=== PATIENT | male | born 1965 | race American Indian/Alaskan Native ===

== ENCOUNTER 2016-03-22 20:29 | Emergency (ER) | payer OTHER ==
[2016-03-22 21:42] VITALS: BP 128/74
== END 2016-03-23 03:15 | disposition left against medical advice (07) ==
LOC: ED 20:29
DX: M54.9 Dorsalgia, unspecified (principal); Z53.21 Procedure and treatment not carried out due to patient leaving prior to being seen by health care provider

== ENCOUNTER 2017-07-07 07:52 | Inpatient (IN) | payer SELFPAY ==
[2017-07-07] MEDS ORDERED: ASPIRIN PO ONE (07:59)
[2017-07-07 08:31] LABS: Mean Corpuscular HGB Conc 31 % (32-34); Mean Corpuscular Hemoglobin 27 pg (28-32); Mean Corpuscular Volume 89 fl (84-94); Platelet Count 253 K/mm3 (140-440); Red Blood Count 4.91 M/mm3 (3.65-5.03); Red Cell Distribution Width 16.3 % (13.2-15.2)
[2017-07-07 08:34] LABS: Hematocrit 43.6 % (35.5-45.6); Hemoglobin 13.4 gm/dl (11.8-15.2)
[2017-07-07 08:53] LABS: BUN/Creatinine Ratio 11; Blood Urea Nitrogen 11 mg/dL (9-20); Calcium 8.6 mg/dL (8.4-10.2); Hemolysis Index 10
[2017-07-07 09:17] LABS: Basophils % (Manual) 0 % (0.0-1.8); Eosinophils % (Manual) 0 % (0.0-4.3); RBC Morphology Normal; Total Cells Counted 100
--- NOTE | 2017-07-07 09:30 | XRay Report ---
Single view chest: History: Shortness of breath, chest pain. Findings: Cardiomegaly. Trachea is midline. No consolidation, pneumothorax or pleural effusion. Impression: Cardiomegaly. No acute lung changes.
[2017-07-07] MEDS ORDERED: LASIX IV ONE (10:01)
--- NOTE | 2017-07-07 10:02 | Emergency Department Report ---
ED General Adult HPI - General Chief complaint: Dyspnea/Respdistress Stated complaint: C/P Time Seen by Provider: 07/07/17 09:43 Source: patient, RN notes reviewed, old records reviewed Mode of arrival: Ambulatory Limitations: No Limitations - History of Present Illness Initial comments: This is a 51-year-old male. The patient is previously unknown to this provider. Has a past medical history of hypertension. 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 Past medical history includes obstructive sleep apnea, poor compliance with CPAP, obesity, hypertension. Patient presents to the ER with a complaint of lower extremity swelling, shortness of breath, cough, recent viral syndrome. Contrary to what is documented in triage nurse documentation, he has no complaint of chest pain. The patient denies chest pain. The patient endorses unintentional 40 pound weight gain in the past year, and endorses new-onset 2 pillow orthopnea in the past month. The patient can't recall if he's had any dietary indiscretions. There is leg swelling but no leg pain. No recent travel, no recent surgeries, no DVT or pulmonary embolus risk factors. -: Gradual Location: left, right, lower extremity Severity scale (0 -10): 0 Consistency: constant Improves with: rest Worsens with: movement Associated Symptoms: cough, malaise, shortness of breath. denies: confusion, chest pain, diaphoresis, fever/chills, headaches, loss of appetite, nausea/ vomiting, rash, seizure, syncope, weakness - Related Data Home Medications Medication Instructions Recorded Confirmed Last Taken Lisinopril [Zestril] 5 mg PO QDAY 07/07/17 07/07/17 Unknown Metoprolol Tartrate 100 mg PO BID 07/07/17 07/07/17 Unknown Allergies Allergy/AdvReac Type Severity Reaction Status Date / Time No Known Allergies Allergy Verified 09/21/14 23:27 ED Review of Systems ROS: Stated complaint: C/P Other details as noted in HPI Comment: All other systems reviewed and negative ED Past Medical Hx - Past Medical History Hx Hypertension: Yes Additional medical history: A fib - Social History Smoking Status: Never Smoker Substance Use Type: None - Medications Home Medications: Home Medications Medication Instructions Recorded Confirmed Last Taken Type Lisinopril [Zestril] 5 mg PO QDAY 07/07/17 07/07/17 Unknown History Metoprolol Tartrate 100 mg PO BID 07/07/17 07/07/17 Unknown History ED Physical Exam - General Limitations: No Limitations General appearance: alert, in no apparent distress - Head Head exam: Present: atraumatic, normocephalic - Eye Eye exam: Present: normal appearance, EOMI - ENT ENT exam: Present: normal exam, normal orophraynx, mucous membranes moist, normal external ear exam - Neck Neck exam: Present: normal inspection, full ROM, other (4 cm of JVD when supine) . Absent: tenderness, meningismus, lymphadenopathy, thyromegaly - Respiratory Respiratory exam: Present: rales. Absent: respiratory distress - Cardiovascular Cardiovascular Exam: Present: regular rate, normal rhythm. Absent: bradycardia , tachycardia, irregular rhythm, systolic murmur, diastolic murmur, rubs, gallop - GI/Abdominal GI/Abdominal exam: Present: soft, normal bowel sounds. Absent: distended, tenderness, guarding, rebound, rigid, pulsatile mass - Rectal Rectal exam: Present: deferred - Extremities Exam Extremities exam: Present: normal inspection, full ROM, normal capillary refill , pedal edema, other (3+ pitting edema in the bilateral lower extremities). Absent: tenderness, calf tenderness - Back Exam Back exam: Present: normal inspection, full ROM. Absent: tenderness, CVA tenderness (R), paraspinal tenderness, vertebral tenderness - Neurological Exam Neurological exam: Present: alert, oriented X3, CN II-XII intact, normal gait, other (Extraocular movements intact. Tongue midline. No facial droop. Facial sensation intact to light touch in the V1, V2, V3 distribution bilaterally. 5 and 5 strength in 4 extremities.. Sensation is intact to light touch in 4 extremities.). Absent: motor sensory deficit - Psychiatric Psychiatric exam: Present: normal affect, normal mood - Skin Skin exam: Present: warm, dry, intact, normal color. Absent: rash ED Course Vital Signs 07/07/17 07/07/17 07/07/17 07:54 08:55 08:58 Temperature 98.8 F 98.9 F Pulse Rate 125 H 95 H 105 H Respiratory 24 16 20 Rate Blood Pressure 152/91 Blood Pressure 145/61 [Left] O2 Sat by Pulse 94 92 90 Oximetry 07/07/17 07/07/17 07/07/17 09:08 09:16 09:30 Temperature Pulse Rate 96 H 86 Respiratory 16 14 19 Rate Blood Pressure 121/67 121/67 Blood Pressure [Left] O2 Sat by Pulse 96 96 96 Oximetry 07/07/17 07/07/17 07/07/17 09:46 10:00 12:08 Temperature Pulse Rate 89 Respiratory 17 27 H Rate Blood Pressure 134/84 134/84 134/84 Blood Pressure [Left] O2 Sat by Pulse 95 94 90 Oximetry 07/07/17 07/07/17 07/07/17 12:16 12:30 12:46 Temperature Pulse Rate 77 Respiratory 15 18 17 Rate Blood Pressure 143/77 143/77 132/74 Blood Pressure [Left] O2 Sat by Pulse 90 92 94 Oximetry 07/07/17 13:00 Temperature Pulse Rate Respiratory 14 Rate Blood Pressure 132/74 Blood Pressure [Left] O2 Sat by Pulse 95 Oximetry ED Medical Decision Making - Lab Data Result diagrams: 07/07/17 08:20 07/07/17 08:20 Vital Signs 07/07/17 07/07/17 07/07/17 07:54 08:55 08:58 Temperature 98.8 F 98.9 F Pulse Rate 125 H 95 H 105 H Respiratory 24 16 20 Rate Blood Pressure 152/91 Blood Pressure 145/61 [Left] O2 Sat by Pulse 94 92 90 Oximetry 07/07/17 07/07/17 07/07/17 09:08 09:16 09:30 Temperature Pulse Rate 96 H 86 Respiratory 16 14 19 Rate Blood Pressure 121/67 121/67 Blood Pressure [Left] O2 Sat by Pulse 96 96 96 Oximetry Lab Results 07/07/17 07/07/17 07/07/17 Range/Units 08:20 08:20 08:20 WBC 8.1 (4.5-11.0) K/mm3 RBC 4.91 (3.65-5.03) M/mm3 Hgb 13.4 (11.8-15.2) gm/dl Hct 43.6 (35.5-45.6) % MCV 89 (84-94) fl MCH 27 L (28-32) pg MCHC 31 L (32-34) % RDW 16.3 H (13.2-15.2) % Plt Count 253 (140-440) K/mm3 Baso % (Auto) First Officer And Flight Instructor Add Manual Diff Complete Total Counted 100 Seg Neuts % (Manual) 84.0 H (40.0-70.0) % Band Neutrophils % 0 % Lymphocytes % (Manual) 11.0 L (13.4-35.0) % Reactive Lymphs % (Man) 0 % Monocytes % (Manual) 5.0 (0.0-7.3) % Eosinophils % (Manual) 0 (0.0-4.3) % Basophils % (Manual) 0 (0.0-1.8) % Metamyelocytes % 0 % Myelocytes % 0 % Promyelocytes % 0 % Blast Cells % 0 % Nucleated RBC % Not Reportable Seg Neutrophils # Man 6.8 (1.8-7.7) K/mm3 Band Neutrophils # 0.0 K/mm3 Lymphocytes # (Manual) 0.9 L (1.2-5.4) K/mm3 Abs React Lymphs (Man) 0.0 K/mm3 Monocytes # (Manual) 0.4 (0.0-0.8) K/mm3 Eosinophils # (Manual) 0.0 (0.0-0.4) K/mm3 Basophils # (Manual) 0.0 (0.0-0.1) K/mm3 Metamyelocytes # 0.0 K/mm3 Myelocytes # 0.0 K/mm3 Promyelocytes # 0.0 K/mm3 Blast Cells # 0.0 K/mm3 WBC Morphology Not Reportable Hypersegmented Neuts Not Reportable Hyposegmented Neuts Not Reportable Hypogranular Neuts Not Reportable Smudge Cells Not Reportable Toxic Granulation Not Reportable Toxic Vacuolation Not Reportable Dohle Bodies Not Reportable Pelger-Huet Anomaly Not Reportable Tacho Rods Not Reportable Platelet Estimate Not Reportable Clumped Platelets Not Reportable Plt Clumps, EDTA Not Reportable Large Platelets Not Reportable Giant Platelets Not Reportable Platelet Satelliting Not Reportable Plt Morphology Comment Not Reportable RBC Morphology Normal Dimorphic RBCs Not Reportable Polychromasia Not Reportable Hypochromasia Not Reportable Poikilocytosis Not Reportable Anisocytosis Not Reportable Microcytosis Not Reportable Macrocytosis Not Reportable Spherocytes Not Reportable Pappenheimer Bodies Not Reportable Sickle Cells Not Reportable Target Cells Not Reportable Tear Drop Cells Not Reportable Ovalocytes Not Reportable Helmet Cells Not Reportable Merino-[place] Bodies Not Reportable [place] Rings Not Reportable [place] Cells Not Reportable Bite Cells Not Reportable Crenated Cell Not Reportable Elliptocytes Not Reportable Acanthocytes (Spur) Not Reportable Rouleaux Not Reportable Hemoglobin C Crystals Not Reportable Schistocytes Not Reportable Malaria parasites Not Reportable [place] Bodies Not Reportable Hem Pathologist Commnt No Sodium 138 (137-145) mmol/L Potassium 4.0 (3.6-5.0) mmol/L Chloride 98.6 (98-107) mmol/L Carbon Dioxide 29 (22-30) mmol/L Anion Gap 14 mmol/L BUN 11 (9-20) mg/dL Creatinine 1.0 (0.8-1.5) mg/dL Estimated GFR > 60 ml/min BUN/Creatinine Ratio 11 % Glucose 145 H (75-100) mg/dL Calcium 8.6 (8.4-10.2) mg/dL Total Creatine Kinase (55-170) units/L Troponin T < 0.010 (0.00-0.029) ng/mL NT-Pro-B Natriuret Pep 54.65 (0-900) pg/mL 07/07/17 Range/Units 08:20 WBC (4.5-11.0) K/mm3 RBC (3.65-5.03) M/mm3 Hgb (11.8-15.2) gm/dl Hct (35.5-45.6) % MCV (84-94) fl MCH (28-32) pg MCHC (32-34) % RDW (13.2-15.2) % Plt Count (140-440) K/mm3 Baso % (Auto) Add Manual Diff Total Counted Seg Neuts % (Manual) (40.0-70.0) % Band Neutrophils % % Lymphocytes % (Manual) (13.4-35.0) % Reactive Lymphs % (Man) % Monocytes % (Manual) (0.0-7.3) % Eosinophils % (Manual) (0.0-4.3) % Basophils % (Manual) (0.0-1.8) % Metamyelocytes % % Myelocytes % % Promyelocytes % % Blast Cells % % Nucleated RBC % Seg Neutrophils # Man (1.8-7.7) K/mm3 Band Neutrophils # K/mm3 Lymphocytes # (Manual) (1.2-5.4) K/mm3 Abs React Lymphs (Man) K/mm3 Monocytes # (Manual) (0.0-0.8) K/mm3 Eosinophils # (Manual) (0.0-0.4) K/mm3 Basophils # (Manual) (0.0-0.1) K/mm3 Metamyelocytes # K/mm3 Myelocytes # K/mm3 Promyelocytes # K/mm3 Blast Cells # K/mm3 WBC Morphology Hypersegmented Neuts Hyposegmented Neuts Hypogranular Neuts Smudge Cells Toxic Granulation Toxic Vacuolation Dohle Bodies Pelger-Huet Anomaly Tacho Rods Platelet Estimate Clumped Platelets Plt Clumps, EDTA Large Platelets Giant Platelets Platelet Satelliting Plt Morphology Comment RBC Morphology Dimorphic RBCs Polychromasia Hypochromasia Poikilocytosis Anisocytosis Microcytosis Macrocytosis Spherocytes Pappenheimer Bodies Sickle Cells Target Cells Tear Drop Cells Ovalocytes Helmet Cells Merino-[place] Bodies [place] Rings [place] Cells Bite Cells Crenated Cell Elliptocytes Acanthocytes (Spur) Rouleaux Hemoglobin C Crystals Schistocytes Malaria parasites [place]o Bodies Hem Pathologist Commnt Sodium (137-145) mmol/L Potassium (3.6-5.0) mmol/L Chloride (98-107) mmol/L Carbon Dioxide (22-30) mmol/L Anion Gap mmol/L BUN (9-20) mg/dL Creatinine (0.8-1.5) mg/dL Estimated GFR ml/min BUN/Creatinine Ratio % Glucose (75-100) mg/dL Calcium (8.4-10.2) mg/dL Total Creatine Kinase 276 H (55-170) units/L Troponin T (0.00-0.029) ng/mL NT-Pro-B Natriuret Pep (0-900) pg/mL - EKG Data -: EKG Interpreted by Me Rate: tachycardia - EKG Data When compared to previous EKG there are: changes noted 07/07/17 10:36 Sinus tachycardia, 106 bpm, left axis deviation, left anterior fascicular block , abnormal EKG, not consistent with a STEMI, nonspecific changes when compared to prior EKG. - Radiology Data Radiology results: report reviewed, image reviewed X-ray of the chest demonstrates cardiomegaly. Otherwise no acute disease. Interpreted by radiology. LIVE [facility] DIANE WISDOM Male : 1965 [facility]# [id number] 07/07/17 11:14 - Radiology Dept. Note by DMITRY CROSSINDER [facility] Num: [id number] : 1965 Patient Age: 51 BLE VENOUS DUPLEX COMPLETED. VAS LAB PRELIMINARY REPORT; NO EVIDENCE OF DVT/SVT NOTED IN VESSELS/SEGMENTS EXAMINED, BLE. PHYSICIANS REPORT TO FOLLOW...(RSK) Initialized on 07/07/17 11:14 - END OF NOTE - Medical Decision Making Differential diagnosis, including the not limited to: Right-sided heart failure , pulmonary hypertension, obstructive sleep apnea, obesity hypoventilation syndrome, DVT, volume overload Assessment and plan: 51-year-old male who is obese, with lower extremity edema, noncompliant with CPAP, most likely has undiagnosed right-sided heart failure and probable pulmonary hypertension. He has no pulmonary embolus or DVT risk factors and he is low risk by well's criteria. A DVT study is pending at this time. He has no chest pain. He is given Lasix. The Hospital physician, Dr. Wheat is to admit the patient. Patient refused an arterial blood gas. Critical care attestation.: If time is entered above; I have spent that time in minutes in the direct care of this critically ill patient, excluding procedure time. ED Disposition Clinical Impression: Dependent edema Right-sided heart failure Qualifiers: Heart failure chronicity: acute on chronic Qualified Code(s): I50.813 - Acute on chronic right heart failure Disposition: OP ADMIT IP TO THIS HOSP Is pt being admited?: Yes Does the pt Need Aspirin: Yes Condition: Good
[2017-07-07] MEDS ORDERED: ASPIRIN ONE (10:10)
[2017-07-07] MEDS ORDERED: BABY ASPIRIN PO ONE (10:38)
[2017-07-07 10:48] LABS: INR 0.95 (0.87-1.13)
--- NOTE | 2017-07-07 11:14 | History and Physical Report ---
History of Present Illness Date of examination: 07/07/17 Date of admission: 07/07/17 Chief complaint: sob History of present illness: This is a 51-year-old male with significant past medical history of CHF, hypertension, paroxysmal atrial fibrillation, obstructive sleep apnea, poor compliance with CPAP and obesity who presents with complaint of of lower extremity swelling, shortness of breath, cough, recent viral syndrome. Patient denies chest pain. No fever or chills. Patient reports new-onset 2 pillow orthopnea in the past month. The patient can't recall if he's had any dietary indiscretions. There is leg swelling but no leg pain. No recent travel, no recent surgeries, no DVT or pulmonary embolus risk factors. Past History Past Medical History: atrial fib, heart failure, hypertension Past Surgical History: No surgical history Social history: no significant social history Family history: no significant family history Medications and Allergies Allergies Allergy/AdvReac Type Severity Reaction Status Date / Time No Known Allergies Allergy Verified 09/21/14 23:27 Home Medications Medication Instructions Recorded Confirmed Last Taken Type Lisinopril [Zestril] 5 mg PO QDAY 07/07/17 07/07/17 Unknown History Metoprolol Tartrate 100 mg PO BID 07/07/17 07/07/17 Unknown History Review of Systems All systems: negative Exam - Constitutional Vitals: Temp Pulse Resp BP Pulse Ox 98.9 F 86 19 121/67 96 07/07/17 08:55 07/07/17 09:30 07/07/17 09:30 07/07/17 09:30 07/07/17 09:30 General appearance: Present: no acute distress, well-nourished - EENT Eyes: Present: PERRL ENT: hearing intact, clear oral mucosa - Neck Neck: Present: supple, normal ROM - Respiratory Respiratory effort: normal Respiratory: bilateral: CTA - Cardiovascular Heart Sounds: Present: S1 & S2. Absent: rub, click - Extremities Extremities: pulses symmetrical, No edema Peripheral Pulses: within normal limits - Abdominal General gastrointestinal: Present: soft, non-tender, non-distended, normal bowel sounds Male genitourinary: Present: normal - Integumentary Integumentary: Present: clear, warm, dry - Musculoskeletal Musculoskeletal: gait normal, strength equal bilaterally - Psychiatric Psychiatric: appropriate mood/affect, intact judgment & insight - Neurologic Neurologic: CNII-XII intact, moves all extremities Results - Labs CBC & Chem 7: 07/07/17 08:20 07/07/17 08:20 Labs: Laboratory Last Values WBC 8.1 K/mm3 (4.5-11.0) 07/07/17 08:20 RBC 4.91 M/mm3 (3.65-5.03) 07/07/17 08:20 Hgb 13.4 gm/dl (11.8-15.2) 07/07/17 08:20 Hct 43.6 % (35.5-45.6) 07/07/17 08:20 MCV 89 fl (84-94) 07/07/17 08:20 MCH 27 pg (28-32) L 07/07/17 08:20 MCHC 31 % (32-34) L 07/07/17 08:20 RDW 16.3 % (13.2-15.2) H 07/07/17 08:20 Plt Count 253 K/mm3 (140-440) 07/07/17 08:20 Baso % (Auto) Regulatory Compliance Manager 07/07/17 08:20 Add Manual Diff Complete 07/07/17 08:20 Total Counted 100 07/07/17 08:20 Seg Neuts % (Manual) 84.0 % (40.0-70.0) H 07/07/17 08:20 Band Neutrophils % 0 % 07/07/17 08:20 Lymphocytes % (Manual) 11.0 % (13.4-35.0) L 07/07/17 08:20 Reactive Lymphs % (Man) 0 % 07/07/17 08:20 Monocytes % (Manual) 5.0 % (0.0-7.3) 07/07/17 08:20 Eosinophils % (Manual) 0 % (0.0-4.3) 07/07/17 08:20 Basophils % (Manual) 0 % (0.0-1.8) 07/07/17 08:20 Metamyelocytes % 0 % 07/07/17 08:20 Myelocytes % 0 % 07/07/17 08:20 Promyelocytes % 0 % 07/07/17 08:20 Blast Cells % 0 % 07/07/17 08:20 Nucleated RBC % Not Reportable 07/07/17 08:20 Seg Neutrophils # Man 6.8 K/mm3 (1.8-7.7) 07/07/17 08:20 Band Neutrophils # 0.0 K/mm3 07/07/17 08:20 Lymphocytes # (Manual) 0.9 K/mm3 (1.2-5.4) L 07/07/17 08:20 Abs React Lymphs (Man) 0.0 K/mm3 07/07/17 08:20 Monocytes # (Manual) 0.4 K/mm3 (0.0-0.8) 07/07/17 08:20 Eosinophils # (Manual) 0.0 K/mm3 (0.0-0.4) 07/07/17 08:20 Basophils # (Manual) 0.0 K/mm3 (0.0-0.1) 07/07/17 08:20 Metamyelocytes # 0.0 K/mm3 07/07/17 08:20 Myelocytes # 0.0 K/mm3 07/07/17 08:20 Promyelocytes # 0.0 K/mm3 07/07/17 08:20 Blast Cells # 0.0 K/mm3 07/07/17 08:20 WBC Morphology Not Reportable 07/07/17 08:20 Hypersegmented Neuts Not Reportable 07/07/17 08:20 Hyposegmented Neuts Not Reportable 07/07/17 08:20 Hypogranular Neuts Not Reportable 07/07/17 08:20 Smudge Cells Not Reportable 07/07/17 08:20 Toxic Granulation Not Reportable 07/07/17 08:20 Toxic Vacuolation Not Reportable 07/07/17 08:20 Dohle Bodies Not Reportable 07/07/17 08:20 Pelger-Huet Anomaly Not Reportable 07/07/17 08:20 Tacho Rods Not Reportable 07/07/17 08:20 Platelet Estimate Not Reportable 07/07/17 08:20 Clumped Platelets Not Reportable 07/07/17 08:20 Plt Clumps, EDTA Not Reportable 07/07/17 08:20 Large Platelets Not Reportable 07/07/17 08:20 Giant Platelets Not Reportable 07/07/17 08:20 Platelet Satelliting Not Reportable 07/07/17 08:20 Plt Morphology Comment Not Reportable 07/07/17 08:20 RBC Morphology Normal 07/07/17 08:20 Dimorphic RBCs Not Reportable 07/07/17 08:20 Polychromasia Not Reportable 07/07/17 08:20 Hypochromasia Not Reportable 07/07/17 08:20 Poikilocytosis Not Reportable 07/07/17 08:20 Anisocytosis Not Reportable 07/07/17 08:20 Microcytosis Not Reportable 07/07/17 08:20 Macrocytosis Not Reportable 07/07/17 08:20 Spherocytes Not Reportable 07/07/17 08:20 Pappenheimer Bodies Not Reportable 07/07/17 08:20 Sickle Cells Not Reportable 07/07/17 08:20 Target Cells Not Reportable 07/07/17 08:20 Tear Drop Cells Not Reportable 07/07/17 08:20 Ovalocytes Not Reportable 07/07/17 08:20 Helmet Cells Not Reportable 07/07/17 08:20 Merino-[place]ittmann Bodies Not Reportable 07/07/17 08:20 [place] Rings Not Reportable 07/07/17 08:20 [place] Cells Not Reportable 07/07/17 08:20 Bite Cells Not Reportable 07/07/17 08:20 Crenated Cell Not Reportable 07/07/17 08:20 Elliptocytes Not Reportable 07/07/17 08:20 Acanthocytes (Spur) Not Reportable 07/07/17 08:20 Rouleaux Not Reportable 07/07/17 08:20 Hemoglobin C Crystals Not Reportable 07/07/17 08:20 Schistocytes Not Reportable 07/07/17 08:20 Malaria parasites Not Reportable 07/07/17 08:20 [place] Bodies Not Reportable 07/07/17 08:20 Hem Pathologist Commnt No 07/07/17 08:20 PT 13.2 Sec. (12.2-14.9) 07/07/17 10:09 INR 0.95 (0.87-1.13) 07/07/17 10:09 Sodium 138 mmol/L (137-145) 07/07/17 08:20 Potassium 4.0 mmol/L (3.6-5.0) 07/07/17 08:20 Chloride 98.6 mmol/L (98-107) 07/07/17 08:20 Carbon Dioxide 29 mmol/L (22-30) 07/07/17 08:20 Anion Gap 14 mmol/L 07/07/17 08:20 BUN 11 mg/dL (9-20) 07/07/17 08:20 Creatinine 1.0 mg/dL (0.8-1.5) 07/07/17 08:20 Estimated GFR > 60 ml/min 07/07/17 08:20 BUN/Creatinine Ratio 11 % 07/07/17 08:20 Glucose 145 mg/dL (75-100) H 07/07/17 08:20 Calcium 8.6 mg/dL (8.4-10.2) 07/07/17 08:20 Total Creatine Kinase 276 units/L (55-170) H 07/07/17 08:20 Troponin T < 0.010 ng/mL (0.00-0.029) 07/07/17 08:20 NT-Pro-B Natriuret Pep 54.65 pg/mL (0-900) 07/07/17 08:20 Assessment and Plan Assessment and plan: Acute hypoxemic respiratory failure. Etiology may be multifactorial secondary to VERNON/OHS. BNP is within normal limits and chest x-ray does not reveal any findings consistent with pulmonary vascular congestion. Check CT of the chest to rule out PE. Check echocardiogram. VERNON/OHS. Continue home CPAP. Hypertension. Resume antihypertensive medications. Bilateral lower extremity swelling. Dopplers to rule out DVT.
[2017-07-07] MEDS ORDERED: ZOFRAN IV PRN (11:18)
[2017-07-07] MEDS ORDERED: SODIUM CHLORIDE FLUSH SYRINGE 10 ML IV PRN (11:18)
--- NOTE | 2017-07-07 19:00 | Cat Scan Report ---
FINAL REPORT PROCEDURE: CT chest with contrast. TECHNIQUE: Computerized axial tomography of the chest was performed during the IV injection of iodinated nonionic contrast. HISTORY: Respiratory failure. COMPARISON: None. TECHNICAL QUALITY: Satisfactory. FINDINGS: The trachea and central bronchi appear normal. The lungs are clear and well expanded. There are no pleural effusions. The thoracic aorta has a normal caliber without evidence of dissection. The pulmonary arteries enhance normally. There are no definite filling defects to indicate pulmonary embolism. There is no mediastinal adenopathy. The heart size is normal. The thoracic skeleton appears intact. IMPRESSION: Normal study.
[2017-07-08] MEDS: TYLENOL PO PRN ×3 (03:18→23:07)
[2017-07-08 07:10] LABS: Basophils # (Auto) 0.1 K/mm3 (0.0-0.1); Basophils % (Auto) 0.8 % (0.0-1.8); Eosinophils # (Auto) 0.2 K/mm3 (0.0-0.4); Hematocrit 41.9 % (35.5-45.6); Hemoglobin 13.7 gm/dl (11.8-15.2); Lymphocytes % (Auto) 12.5 % (13.4-35.0); Mean Corpuscular HGB Conc 33 % (32-34); Mean Corpuscular Hemoglobin 29 pg (28-32); Mean Corpuscular Volume 87 fl (84-94); Monocytes % (Auto) 12.5 % (0.0-7.3); Platelet Count 233 K/mm3 (140-440); Red Blood Count 4.82 M/mm3 (3.65-5.03)
[2017-07-08 07:31] LABS: BUN/Creatinine Ratio 13; Blood Urea Nitrogen 13 mg/dL (9-20); Calcium 8.8 mg/dL (8.4-10.2); Hemolysis Index 5
[2017-07-08] MEDS: SODIUM CHLORIDE FLUSH SYRINGE 10 ML IV SCH ×3 (07:46→21:00)
[2017-07-08] MEDS ORDERED: LOVENOX SUB-Q SCH (10:00)
--- NOTE | 2017-07-08 10:24 | Vascular Lab Report ---
LOWER EXTREMITY VENOUS DUPLEX: REASON FOR EXAM: Swelling of the lower extremities. COMMENTS ON THE RIGHT: All veins visualized are freely compressible without evidence of internal echogenicity. Flow is spontaneous and phasic throughout. COMMENTS ON THE LEFT: All veins visualized are freely compressible without evidence of internal echogenicity. Flow is spontaneous and phasic throughout. IMPRESSION: No evidence of acute or chronic deep venous thrombosis in either lower extremity.
--- NOTE | 2017-07-08 11:54 | Progress Note ---
Assessment and Plan Assessment and plan: Acute hypoxemic respiratory failure. Etiology may be multifactorial secondary to VERNON/OHS. BNP is within normal limits and chest x-ray does not reveal any findings consistent with pulmonary vascular congestion. CT of the chest is negative. Echocardiogram revealed global left ventricular systolic function at the lower limits of normal with an EF of 50-55%. Patient has mild concentric left ventricular hypertrophy. VERNON/OHS. Continue home CPAP. Hypertension. Resume antihypertensive medications. Bilateral lower extremity swelling. Dopplers of lower extremity are negative for DVT. History Interval history: No new issues overnight. Hospitalist Physical - Constitutional Vitals: Temp Pulse Resp BP Pulse Ox 98.5 F 110 H 16 127/93 90 07/08/17 07:21 07/08/17 11:26 07/08/17 09:59 07/08/17 07:21 07/08/17 09:59 General appearance: Present: no acute distress, well-nourished - EENT Eyes: Present: PERRL, EOM intact ENT: hearing intact, clear oral mucosa, dentition normal - Neck Neck: Present: supple, normal ROM - Respiratory Respiratory effort: normal Respiratory: bilateral: CTA - Cardiovascular Rhythm: regular Heart Sounds: Present: S1 & S2. Absent: gallop, rub - Extremities Extremities: no ischemia, No edema, Full ROM - Abdominal General gastrointestinal: soft, non-tender, non-distended, normal bowel sounds - Integumentary Integumentary: Present: clear, warm, dry - Neurologic Neurologic: CNII-XII intact, moves all extremities Results - Labs CBC & Chem 7: 07/08/17 06:45 07/08/17 06:45 Labs: Laboratory Last Values WBC 7.6 K/mm3 (4.5-11.0) 07/08/17 06:45 RBC 4.82 M/mm3 (3.65-5.03) 07/08/17 06:45 Hgb 13.7 gm/dl (11.8-15.2) 07/08/17 06:45 Hct 41.9 % (35.5-45.6) 07/08/17 06:45 MCV 87 fl (84-94) 07/08/17 06:45 MCH 29 pg (28-32) 07/08/17 06:45 MCHC 33 % (32-34) 07/08/17 06:45 RDW 16.0 % (13.2-15.2) H 07/08/17 06:45 Plt Count 233 K/mm3 (140-440) 07/08/17 06:45 Lymph % (Auto) 12.5 % (13.4-35.0) L 07/08/17 06:45 [place] % (Auto) 12.5 % (0.0-7.3) H 07/08/17 06:45 Eos % (Auto) 3.0 % (0.0-4.3) 07/08/17 06:45 Baso % (Auto) 0.8 % (0.0-1.8) 07/08/17 06:45 Lymph # 1.0 K/mm3 (1.2-5.4) L 07/08/17 06:45 [place] # 1.0 K/mm3 (0.0-0.8) H 07/08/17 06:45 Eos # 0.2 K/mm3 (0.0-0.4) 07/08/17 06:45 Baso # 0.1 K/mm3 (0.0-0.1) 07/08/17 06:45 Add Manual Diff Complete 07/07/17 08:20 Total Counted 100 07/07/17 08:20 Seg Neutrophils % 71.2 % (40.0-70.0) H 07/08/17 06:45 Seg Neuts % (Manual) 84.0 % (40.0-70.0) H 07/07/17 08:20 Band Neutrophils % 0 % 07/07/17 08:20 Lymphocytes % (Manual) 11.0 % (13.4-35.0) L 07/07/17 08:20 Reactive Lymphs % (Man) 0 % 07/07/17 08:20 Monocytes % (Manual) 5.0 % (0.0-7.3) 07/07/17 08:20 Eosinophils % (Manual) 0 % (0.0-4.3) 07/07/17 08:20 Basophils % (Manual) 0 % (0.0-1.8) 07/07/17 08:20 Metamyelocytes % 0 % 07/07/17 08:20 Myelocytes % 0 % 07/07/17 08:20 Promyelocytes % 0 % 07/07/17 08:20 Blast Cells % 0 % 07/07/17 08:20 Nucleated RBC % Not Reportable 07/07/17 08:20 Seg Neutrophils # 5.4 K/mm3 (1.8-7.7) 07/08/17 06:45 Seg Neutrophils # Man 6.8 K/mm3 (1.8-7.7) 07/07/17 08:20 Band Neutrophils # 0.0 K/mm3 07/07/17 08:20 Lymphocytes # (Manual) 0.9 K/mm3 (1.2-5.4) L 07/07/17 08:20 Abs React Lymphs (Man) 0.0 K/mm3 07/07/17 08:20 Monocytes # (Manual) 0.4 K/mm3 (0.0-0.8) 07/07/17 08:20 Eosinophils # (Manual) 0.0 K/mm3 (0.0-0.4) 07/07/17 08:20 Basophils # (Manual) 0.0 K/mm3 (0.0-0.1) 07/07/17 08:20 Metamyelocytes # 0.0 K/mm3 07/07/17 08:20 Myelocytes # 0.0 K/mm3 07/07/17 08:20 Promyelocytes # 0.0 K/mm3 07/07/17 08:20 Blast Cells # 0.0 K/mm3 07/07/17 08:20 WBC Morphology Not Reportable 07/07/17 08:20 Hypersegmented Neuts Not Reportable 07/07/17 08:20 Hyposegmented Neuts Not Reportable 07/07/17 08:20 Hypogranular Neuts Not Reportable 07/07/17 08:20 Smudge Cells Not Reportable 07/07/17 08:20 Toxic Granulation Not Reportable 07/07/17 08:20 Toxic Vacuolation Not Reportable 07/07/17 08:20 Dohle Bodies Not Reportable 07/07/17 08:20 Pelger-Huet Anomaly Not Reportable 07/07/17 08:20 Tacho Rods Not Reportable 07/07/17 08:20 Platelet Estimate Not Reportable 07/07/17 08:20 Clumped Platelets Not Reportable 07/07/17 08:20 Plt Clumps, EDTA Not Reportable 07/07/17 08:20 Large Platelets Not Reportable 07/07/17 08:20 Giant Platelets Not Reportable 07/07/17 08:20 Platelet Satelliting Not Reportable 07/07/17 08:20 Plt Morphology Comment Not Reportable 07/07/17 08:20 RBC Morphology Normal 07/07/17 08:20 Dimorphic RBCs Not Reportable 07/07/17 08:20 Polychromasia Not Reportable 07/07/17 08:20 Hypochromasia Not Reportable 07/07/17 08:20 Poikilocytosis Not Reportable 07/07/17 08:20 Anisocytosis Not Reportable 07/07/17 08:20 Microcytosis Not Reportable 07/07/17 08:20 Macrocytosis Not Reportable 07/07/17 08:20 Spherocytes Not Reportable 07/07/17 08:20 Pappenheimer Bodies Not Reportable 07/07/17 08:20 Sickle Cells Not Reportable 07/07/17 08:20 Target Cells Not Reportable 07/07/17 08:20 Tear Drop Cells Not Reportable 07/07/17 08:20 Ovalocytes Not Reportable 07/07/17 08:20 Helmet Cells Not Reportable 07/07/17 08:20 Merino-Rosemont Bodies Not Reportable 07/07/17 08:20 Smock Rings Not Reportable 07/07/17 08:20 Guille Cells Not Reportable 07/07/17 08:20 Bite Cells Not Reportable 07/07/17 08:20 Crenated Cell Not Reportable 07/07/17 08:20 Elliptocytes Not Reportable 07/07/17 08:20 Acanthocytes (Spur) Not Reportable 07/07/17 08:20 Rouleaux Not Reportable 07/07/17 08:20 Hemoglobin C Crystals Not Reportable 07/07/17 08:20 Schistocytes Not Reportable 07/07/17 08:20 Malaria parasites Not Reportable 07/07/17 08:20 Rancho Bodies Not Reportable 07/07/17 08:20 Hem Pathologist Commnt No 07/07/17 08:20 PT 13.2 Sec. (12.2-14.9) 07/07/17 10:09 INR 0.95 (0.87-1.13) 07/07/17 10:09 Sodium 140 mmol/L (137-145) 07/08/17 06:45 Potassium 4.1 mmol/L (3.6-5.0) 07/08/17 06:45 Chloride 98.9 mmol/L (98-107) 07/08/17 06:45 Carbon Dioxide 28 mmol/L (22-30) 07/08/17 06:45 Anion Gap 17 mmol/L 07/08/17 06:45 BUN 13 mg/dL (9-20) 07/08/17 06:45 Creatinine 1.0 mg/dL (0.8-1.5) 07/08/17 06:45 Estimated GFR > 60 ml/min 07/08/17 06:45 BUN/Creatinine Ratio 13 % 07/08/17 06:45 Glucose 111 mg/dL (75-100) H 07/08/17 06:45 Calcium 8.8 mg/dL (8.4-10.2) 07/08/17 06:45 Total Creatine Kinase 276 units/L (55-170) H 07/07/17 08:20 Troponin T < 0.010 ng/mL (0.00-0.029) 07/07/17 20:03 NT-Pro-B Natriuret Pep 54.65 pg/mL (0-900) 07/07/17 08:20
[2017-07-08] MEDS ORDERED: BENADRYL PO PRN (22:36)
--- NOTE | 2017-07-09 08:09 | Discharge Summary ---
Providers - Providers Date of Admission: 07/07/17 11:18 Date of discharge: 07/09/17 Attending physician: SEKOU KAT Primary care physician: DION SOUSA Hospitalization Reason for admission: dyspnea Condition: Good Hospital course: This is a 51-year-old male with significant past medical history of CHF, hypertension, paroxysmal atrial fibrillation, obstructive sleep apnea, poor compliance with CPAP and obesity who presents with complaint of of lower extremity swelling, shortness of breath, cough, recent viral syndrome. Patient denied chest pain. The patient was admitted with diagnosis of acute hypoxia respiratory failure likely secondary to VERNON/OHS. BNP was within normal limits and chest x-ray did not reveal any findings consistent with pulmonary vascular congestion. CT of the chest was negative. Cardiac isoenzymes were negative. Echocardiogram revealed global left ventricular systolic function at the lower limits of normal with an EF of 50-55%. Patient has mild concentric left ventricular hypertrophy. The patient was counseled with the importance of home CPAP. Patient states that he feels back to his baseline respiratory status. Dedicated discharge time 31 minutes. Disposition: DC- TO HOME OR SELFCARE Time spent for discharge: 31 Core Measure Documentation - Palliative Care Palliative Care/ Comfort Measures: Not Applicable - Core Measures Any of the following diagnoses?: none Exam - Constitutional Vitals: Temp Pulse Resp BP Pulse Ox 98.2 F 81 22 135/83 93 07/09/17 05:21 07/09/17 05:21 07/09/17 05:21 07/09/17 05:21 07/09/17 05:21 General appearance: Present: no acute distress, obese - EENT Eyes: Present: PERRL ENT: hearing intact, clear oral mucosa - Neck Neck: Present: supple, normal ROM - Respiratory Respiratory effort: normal Respiratory: bilateral: CTA - Cardiovascular Heart Sounds: Present: S1 & S2. Absent: rub, click - Extremities Extremities: pulses symmetrical, No edema Peripheral Pulses: within normal limits - Abdominal General gastrointestinal: Present: soft, non-tender, non-distended, normal bowel sounds Male genitourinary: Present: normal - Integumentary Integumentary: Present: clear, warm, dry - Musculoskeletal Musculoskeletal: gait normal, strength equal bilaterally - Psychiatric Psychiatric: appropriate mood/affect, intact judgment & insight - Neurologic Neurologic: CNII-XII intact, moves all extremities Plan Activity: no restrictions Weight Bearing Status: Full Weight Bearing Diet: low fat, low cholesterol, low salt Follow up with: RAOUL BARRAGAN [employer] SUPERVISOR [Primary Care Provider] - 3-5 Days
[2017-07-09 09:38] VITALS: BP 124/73
== END 2017-07-09 12:10 | disposition home or self-care (01) | DRG 189 ==
LOC: ED 07:52 → 4A 11:18
PROVIDERS: ADMIT Hospitalist; ATTEND Hospitalist
PROC: 5A09357 Assistance with Respiratory Ventilation, Less than 24 Consecutive Hours, Continuous Positive Airway Pressure (ICD-10-PCS; principal; 2017-07-08)
DX: J96.01 Acute respiratory failure with hypoxia (principal); E66.2 Morbid (severe) obesity with alveolar hypoventilation; Z68.43 Body mass index [BMI] 50.0-59.9, adult; I11.0 Hypertensive heart disease with heart failure; I50.810 Right heart failure, unspecified; I48.0 Paroxysmal atrial fibrillation; Z91.14 Patient's other noncompliance with medication regimen; Z79.899 Other long term (current) drug therapy
CPT/HCPCS: 36415; 71045; 71275; 80048; 82550; 83880; 84484; 85007; 85025; 85610; 93005; 93010; 93306; 93970; 94660; 96374; J1650; J1940; Q9967

== ENCOUNTER 2018-03-20 14:19 | Emergency (ER) | payer SELFPAY ==
[2018-03-20 14:35] VITALS: BP 148/89
--- NOTE | 2018-03-20 19:43 | Emergency Department Report ---
Minor Respiratory - HPI Chief Complaint: Upper Respiratory Infection Stated Complaint: FLU LIKE Duration: 2 Days Pain Location: Nose, Ear (right) Severity: moderate Minor Respiratory: Yes Rhinorrhea, Yes Able to Tolerate Fluids, Yes Ear Pain (right), Yes Cough, Yes Sick Contacts, Yes Fever, No Sore Throat, No Hemoptysis, No Chest Pain, No Shortness of Breath Other History: This is a 52-year-old [place] male who presents with upper respiratory symptoms. Patient reports myalgia, congestion, cough, fatigue, and right ear pain for the past 2 days. Patient states he has taken TheraFlu and NyQuil with minimal improvement of his symptoms. He also reports fever and chills. Past medical history of A. fib, congestive heart failure, and hypertension. Patient states he has been off medication past year because he no longer has insurance and cannot afford medication. He denies shortness of breath, radiating pain, chest pain, nausea or vomiting, lightheadedness, or abdominal pain. ED Review of Systems ROS: Stated complaint: FLU LIKE Other details as noted in HPI Constitutional: chills, fever ENT: ear pain (right ear), congestion. denies: throat pain, dental pain, hearing loss, epistaxis Respiratory: cough. denies: shortness of breath, wheezing Cardiovascular: denies: chest pain, palpitations Gastrointestinal: denies: abdominal pain, nausea, diarrhea Musculoskeletal: myalgia. denies: back pain, joint swelling, arthralgia Neurological: headache. denies: weakness, paresthesias Psychiatric: denies: anxiety, depression ED Past Medical Hx - Past Medical History Hx Hypertension: Yes Hx Congestive Heart Failure: Yes Hx Diabetes: No Hx Asthma: No Hx COPD: No Hx HIV: No Additional medical history: A fib - Surgical History Past Surgical History?: No - Social History Smoking Status: Never Smoker Substance Use Type: None - Medications Home Medications: Home Medications Medication Instructions Recorded Confirmed Last Taken Type Furosemide [Lasix] 20 mg PO QDAY #30 tablet 07/09/17 Unknown Rx Lisinopril [Zestril TAB] 5 mg PO QDAY #30 tablet 07/09/17 Unknown Rx Metoprolol Tartrate 100 mg PO BID #60 tablet 07/09/17 Unknown Rx Benzonatate [Tessalon Perle] 100 mg PO TID PRN #30 capsule 03/20/18 Unknown Rx Fluticasone [Flonase] 1 spray NS QDAY #1 bottle 03/20/18 Unknown Rx Guaifenesin/Dm/Pseudoephedrine 15 ml PO QID #1 bottle 03/20/18 Unknown Rx [Robafen Cf Syrup] Lisinopril [Zestril TAB] 5 mg PO QDAY #30 tablet 03/20/18 Unknown Rx Loratadine [Claritin] 10 mg PO DAILY #30 tablet 03/20/18 Unknown Rx Metoprolol Tartrate 50 mg PO BID #60 tablet 03/20/18 Unknown Rx Minor Respiratory Exam - Exam General: Vital signs noted. No distress. Morbidly obese. Alert and acting appropriately. HEENT: Yes Pharyngeal Erythema (erythematous posterior pharynx, uvula midline without exudate), Yes Moist Mucous Membranes, Yes Rhinorrhea (erythematous and enlarged turbinates, clear discharge), No Pharyngeal Exudates, No Conjuctival Injection, No Frontal Tenderness, No Maxillary Tenderness Ear: Neither TM Bulge, Neither TM Erythema, Neither EAC Pain, Neither EAC Discharge Neck: Yes Supple, No Adenopathy Lungs: Yes Good Air Exchange, Yes Cough, No Wheezes, No Ronchi, No Stridor, No Labored Respirations, No Retractions, No Use of Accessory Muscles, No Other Abnormal Lung Sounds Heart: No Regular (tachycardia), No Murmur Abdomen: Yes Normal Bowel Sounds, No Tenderness, No Peritoneal Signs Skin: No Rash, No Edema Neurologic: Alert and oriented, no deficits. Musculoskeletal: Unremarkable. ED Course Vital Signs 03/20/18 14:33 Temperature 98.7 F Pulse Rate 121 H Respiratory 20 Rate Blood Pressure 148/89 O2 Sat by Pulse 93 Oximetry ED Medical Decision Making - EKG Data -: No EKG Interpreted by Me (EKG interpreted by attending) Rate: tachycardia - Radiology Data Radiology results: report reviewed FINAL REPORT PROCEDURE: XR CHEST ROUTINE 2V TECHNIQUE: PA and lateral chest radiographs were obtained. CPT 85946 HISTORY: cough COMPARISON: No prior studies are available for comparison. FINDINGS: Heart: Normal. Mediastinum/Vessels: Normal. Lungs/Pleural space: Normal. Bony thorax: No acute osseous abnormality. Other: IMPRESSION: Normal examination. - Medical Decision Making 52 y.o. male that presents with URI symptoms. Patient examined by me and stable. No distress noted. Slightly tachycardic on arrival. Past medical history of congestive heart failure, hypertension, and A. fib. An EKG was obtained prior to focal exam. EKG was interpreted by attending, sinus tachycardia. Chest xray has been obtained and dictated by radiologist. No acute cardiopulmonary findings. Physical findings is susceptible upper respiratory infection or viral syndrome. Patient requests refills of medication. Start lisinopril 5 mg po daily and metoprolol 25 mg po bid x 30 days. Start flonase, benzonatate, mucinex DM, and claritin. Discharged home stable. Follow up with Primary Care Provider in 2-3 days. Critical care attestation.: If time is entered above; I have spent that time in minutes in the direct care of this critically ill patient, excluding procedure time. ED Disposition Clinical Impression: Cough in adult, Viral syndrome Hypertension Qualifiers: Hypertension type: essential hypertension Qualified Code(s): I10 - Essential (primary) hypertension Upper respiratory infection Qualifiers: URI type: acute nasopharyngitis (common cold) Qualified Code(s): J00 - Acute nasopharyngitis [common cold] Disposition: TO HOME OR SELFCARE Is pt being admited?: No Does the pt Need Aspirin: No Condition: Stable Instructions: Hypertension (ED), Upper Respiratory Infection (ED), Viral Syndrome (ED) Additional Instructions: Increase fluid intake and rest. Wash hands frequently. Continue taking Tylenol or ibuprofen to control fever. Moderate caffeine consumption is acceptable. Begin and maintain aerobic exercise, with a goal of at least 30 minutes of moderate intensity, dynamic aerobic exercise (walking, jogging, cycling, or swimming) 5 days per week to total 150 minutes as tolerated or recommended by a physician. Take medication daily as prescribed. Return to ER if fever, SOB, or difficulty breathing after 48 hours of supportive care. Follow up with Primary Care Provider in 1 week. Prescriptions: Benzonatate [Tessalon Perle] 100 mg PO TID PRN #30 capsule PRN Reason: Cough Fluticasone [Flonase] 1 spray NS QDAY #1 bottle Guaifenesin/Dm/Pseudoephedrine [Robafen Cf Syrup] 15 ml PO QID #1 bottle Lisinopril [Zestril TAB] 5 mg PO QDAY #30 tablet Loratadine [Claritin] 10 mg PO DAILY #30 tablet Metoprolol Tartrate 50 mg PO BID #60 tablet Referrals: [facility] [Outside] - 3-5 Days [facility] [Outside] - 3-5 Days [facility] [Outside] - 3-5 Days ESSENCE UNDERWOOD MD [Staff Physician] - 3-5 Days Forms: Work/School Release Form(ED) Time of Disposition: 21:48
--- NOTE | 2018-03-20 20:33 | XRay Report ---
FINAL REPORT PROCEDURE: XR CHEST ROUTINE 2V TECHNIQUE: PA and lateral chest radiographs were obtained. CPT 30062 HISTORY: cough COMPARISON: No prior studies are available for comparison. FINDINGS: Heart: Normal. Mediastinum/Vessels: Normal. Lungs/Pleural space: Normal. Bony thorax: No acute osseous abnormality. Other: IMPRESSION: Normal examination.
== END 2018-03-20 21:59 | disposition home or self-care (01) ==
LOC: ED 14:19
DX: J06.9 Acute upper respiratory infection, unspecified (principal); B34.9 Viral infection, unspecified; I48.91 Unspecified atrial fibrillation; I11.0 Hypertensive heart disease with heart failure
CPT/HCPCS: 71046; 93005; 93010; 99283

== ENCOUNTER 2018-11-05 03:13 | Emergency (ER) | payer SELFPAY ==
[2018-11-05 05:01] LABS: Basophils # (Auto) 0.1 K/mm3 (0.0-0.1); Basophils % (Auto) 1.1 % (0.0-1.8); Eosinophils # (Auto) 0.3 K/mm3 (0.0-0.4); Eosinophils % (Auto) 2.1 % (0.0-4.3); Hematocrit 45.1 % (35.5-45.6); Hemoglobin 14.7 gm/dl (11.8-15.2); Lymphocytes # (Auto) 1.4 K/mm3 (1.2-5.4); Lymphocytes % (Auto) 11.7 % (13.4-35.0); Mean Corpuscular HGB Conc 33 % (32-34); Mean Corpuscular Volume 89 fl (84-94); Monocytes % (Auto) 8.1 % (0.0-7.3); Platelet Count 244 K/mm3 (140-440); Red Blood Count 5.05 M/mm3 (3.65-5.03); Red Cell Distribution Width 15.6 % (13.2-15.2)
[2018-11-05 05:25] LABS: BUN/Creatinine Ratio 12; Blood Urea Nitrogen 13 mg/dL (9-20); Calcium 9.4 mg/dL (8.4-10.2); Hemolysis Index 41
--- NOTE | 2018-11-05 05:31 | XRay Report ---
CHEST 1 VIEW 11/05/2018 4:48 AM INDICATION / CLINICAL INFORMATION: Chest Pain. COMPARISON: Chest x-ray 03/20/2018 FINDINGS: SUPPORT DEVICES: None. HEART / MEDIASTINUM: No significant abnormality. LUNGS / PLEURA: No significant pulmonary or pleural abnormality. No pneumothorax. ADDITIONAL FINDINGS: No significant additional findings. IMPRESSION: 1. No acute findings. Signer Name: Steffen Kimble MD Signed: 11/05/2018 5:27 AM Workstation Name: [employer]
[2018-11-05 07:09] VITALS: BP 152/91
--- NOTE | 2018-11-05 07:59 | Emergency Department Report ---
ED General Adult HPI - General Chief complaint: Chest Pain Stated complaint: CHEST PAIN/LEG SWELLING Time Seen by Provider: 11/05/18 07:15 Source: patient Mode of arrival: Ambulatory Limitations: No Limitations - History of Present Illness Initial comments: Patient is a 53-year-old male past medical history of high blood pressure who presents with leg swelling and minor chest pain as been going on for today. Patient states he's been having chest and side 10 for last 3 days no radiation has no nausea or vomiting he's had some bilateral leg swelling for a few weeks and he's ran out of his water pill. Patient states that currently he has no chest pain. Severity scale (0 -10): 0 - Related Data Previous Rx's Medication Instructions Recorded Last Taken Type Furosemide [Lasix] 20 mg PO QDAY #30 tablet 07/09/17 Unknown Rx Lisinopril [Zestril TAB] 5 mg PO QDAY #30 tablet 07/09/17 Unknown Rx Metoprolol Tartrate 100 mg PO BID #60 tablet 07/09/17 Unknown Rx Benzonatate [Tessalon Perle] 100 mg PO TID PRN #30 capsule 03/20/18 Unknown Rx Fluticasone [Flonase] 1 spray NS QDAY #1 bottle 03/20/18 Unknown Rx Guaifenesin/Dm/Pseudoephedrine 15 ml PO QID #1 bottle 03/20/18 Unknown Rx [Robafen Cf Syrup] Lisinopril [Zestril TAB] 5 mg PO QDAY #30 tablet 03/20/18 Unknown Rx Loratadine [Claritin] 10 mg PO DAILY #30 tablet 03/20/18 Unknown Rx Metoprolol Tartrate 50 mg PO BID #60 tablet 03/20/18 Unknown Rx Furosemide [Lasix] 20 mg PO QDAY #60 tablet 11/05/18 Unknown Rx Allergies Allergy/AdvReac Type Severity Reaction Status Date / Time No Known Allergies Allergy Verified 09/21/14 23:27 ED Review of Systems ROS: Stated complaint: CHEST PAIN/LEG SWELLING Other details as noted in HPI Constitutional: denies: chills, fever Eyes: denies: eye pain, eye discharge, vision change ENT: denies: ear pain, throat pain Respiratory: denies: cough, shortness of breath, wheezing Cardiovascular: chest pain. denies: palpitations Endocrine: no symptoms reported Gastrointestinal: denies: abdominal pain, nausea, diarrhea Genitourinary: denies: urgency, dysuria Musculoskeletal: denies: back pain, joint swelling, arthralgia Skin: denies: rash, lesions Neurological: denies: headache, weakness, paresthesias Psychiatric: denies: anxiety, depression Hematological/Lymphatic: denies: easy bleeding, easy bruising ED Past Medical Hx - Past Medical History Previous Medical History?: Yes Hx Hypertension: Yes Hx Congestive Heart Failure: Yes Hx Diabetes: No Hx Asthma: No Hx COPD: No Hx HIV: No Additional medical history: A fib - Surgical History Past Surgical History?: No - Social History Smoking Status: Never Smoker - Medications Home Medications: Home Medications Medication Instructions Recorded Confirmed Last Taken Type Furosemide [Lasix] 20 mg PO QDAY #30 tablet 07/09/17 Unknown Rx Lisinopril [Zestril TAB] 5 mg PO QDAY #30 tablet 07/09/17 Unknown Rx Metoprolol Tartrate 100 mg PO BID #60 tablet 07/09/17 Unknown Rx Benzonatate [Tessalon Perle] 100 mg PO TID PRN #30 capsule 03/20/18 Unknown Rx Fluticasone [Flonase] 1 spray NS QDAY #1 bottle 03/20/18 Unknown Rx Guaifenesin/Dm/Pseudoephedrine 15 ml PO QID #1 bottle 03/20/18 Unknown Rx [Robafen Cf Syrup] Lisinopril [Zestril TAB] 5 mg PO QDAY #30 tablet 03/20/18 Unknown Rx Loratadine [Claritin] 10 mg PO DAILY #30 tablet 03/20/18 Unknown Rx Metoprolol Tartrate 50 mg PO BID #60 tablet 03/20/18 Unknown Rx Furosemide [Lasix] 20 mg PO QDAY #60 tablet 11/05/18 Unknown Rx ED Physical Exam - General Limitations: No Limitations General appearance: alert, in no apparent distress - Head Head exam: Present: atraumatic, normocephalic - Eye Eye exam: Present: normal appearance - ENT ENT exam: Present: mucous membranes moist - Neck Neck exam: Present: normal inspection - Respiratory Respiratory exam: Present: normal lung sounds bilaterally. Absent: respiratory distress - Cardiovascular Cardiovascular Exam: Present: regular rate, normal rhythm. Absent: systolic murmur, diastolic murmur, rubs, gallop - GI/Abdominal GI/Abdominal exam: Present: soft, normal bowel sounds - Rectal Rectal exam: Present: deferred - Extremities Exam Extremities exam: Present: normal inspection, other (no pedal edema neurovascularly intact ) - Back Exam Back exam: Present: normal inspection - Neurological Exam Neurological exam: Present: alert, oriented X3 - Psychiatric Psychiatric exam: Present: normal affect, normal mood - Skin Skin exam: Present: warm, dry, intact, normal color. Absent: rash ED Course Vital Signs 11/05/18 11/05/18 03:49 07:06 Temperature 98.6 F Pulse Rate 93 H 90 Respiratory 20 24 Rate Blood Pressure 151/92 Blood Pressure 152/91 [Left] O2 Sat by Pulse 95 93 Oximetry ED Medical Decision Making - Lab Data Result diagrams: 11/05/18 04:32 11/05/18 04:32 Lab Results 11/05/18 11/05/18 11/05/18 Range/Units 04:32 04:32 04:32 WBC 11.8 H (4.5-11.0) K/mm3 RBC 5.05 H (3.65-5.03) M/mm3 Hgb 14.7 (11.8-15.2) gm/dl Hct 45.1 (35.5-45.6) % MCV 89 (84-94) fl MCH 29 (28-32) pg MCHC 33 (32-34) % RDW 15.6 H (13.2-15.2) % Plt Count 244 (140-440) K/mm3 Lymph % (Auto) 11.7 L (13.4-35.0) % [place] % (Auto) 8.1 H (0.0-7.3) % Eos % (Auto) 2.1 (0.0-4.3) % Baso % (Auto) 1.1 (0.0-1.8) % Lymph # 1.4 (1.2-5.4) K/mm3 [place] # 1.0 H (0.0-0.8) K/mm3 Eos # 0.3 (0.0-0.4) K/mm3 Baso # 0.1 (0.0-0.1) K/mm3 Seg Neutrophils % 77.0 H (40.0-70.0) % Seg Neutrophils # 9.1 H (1.8-7.7) K/mm3 Sodium 141 (137-145) mmol/L Potassium 4.3 (3.6-5.0) mmol/L Chloride 101.1 (98-107) mmol/L Carbon Dioxide 28 (22-30) mmol/L Anion Gap 16 mmol/L BUN 13 (9-20) mg/dL Creatinine 1.1 (0.8-1.5) mg/dL Estimated GFR > 60 ml/min BUN/Creatinine Ratio 12 % Glucose 106 H (75-100) mg/dL Calcium 9.4 (8.4-10.2) mg/dL Troponin T < 0.010 (0.00-0.029) ng/mL NT-Pro-B Natriuret Pep 187.2 (0-900) pg/mL - EKG Data -: EKG Interpreted by Me - EKG Data 11/05/18 08:22 EKG performed at 03:59 EKG shows rate 93 normal sinus rhythm no ST segment elevation no T wave inversion normal axis impression normal EKG KG performed at 658 EKG done at shows normal sinus rhythm no ST segment elevation no T wave inversion left axis deviation no interval changes impression normal EKG - Radiology Data Radiology results: report reviewed, image reviewed Chest x-ray: Shows no acute cardiopulmonary disease - Medical Decision Making Chief Medical diagnosis: GERD Differential medical diagnosis : Hypertensive urgency, non-STEMI, arrhythmia, pneumonia, pneumothorax I'll get blood work CHEST x-ray EKG and will reevaluate the patient Since diagnostic workup is unremarkable patient has no leg swelling patient was previously had ultrasounds of his lower legs to evaluate for DVT and it was negative patient's most recent echo shows an ejection fraction of 55% BMP is within normal limits patient has a history of sleep apnea and gave patient instructions to continue on with his CPAP we'll give patient oral Lasix and oral chlorthalidone and we'll send patient with I will refill his Lasix prescription. Discussed plan with patient patient agrees with plan additional verbal discharge instructions were given. Critical care attestation.: If time is entered above; I have spent that time in minutes in the direct care of this critically ill patient, excluding procedure time. ED Disposition Clinical Impression: Dependent edema, Chest wall pain Disposition: - TO HOME OR SELFCARE Is pt being admited?: No Does the pt Need Aspirin: No Condition: Stable Instructions: Chest Pain (ED), Leg Edema (ED) Prescriptions: Furosemide [Lasix] 20 mg PO QDAY #60 tablet Referrals: PRIMARY CARE, [Primary Care Provider] - 3-5 Days
[2018-11-05] MEDS ORDERED: LASIX PO ONE (08:20)
[2018-11-05] MEDS ORDERED: THALITONE PO ONE (09:00)
== END 2018-11-05 09:19 | disposition home or self-care (01) ==
LOC: ED 03:13
DX: R07.89 Other chest pain (principal); R60.9 Edema, unspecified; I11.0 Hypertensive heart disease with heart failure; I50.9 Heart failure, unspecified; Z79.899 Other long term (current) drug therapy
CPT/HCPCS: 36415; 71045; 80048; 83880; 84484; 85025; 93005; 93010

== ENCOUNTER 2020-11-24 02:37 | Emergency (ER) | payer OTHER ==
[2020-11-24 03:21] VITALS: BP 150/93
--- NOTE | 2020-11-24 03:25 | Emergency Department Report ---
ED Extremity Problem HPI - General Chief complaint: Extremity Injury, Lower Stated complaint: LEFT HEAL FOOT PAIN Time Seen by Provider: 11/24/20 02:52 Source: patient Mode of arrival: Ambulatory Limitations: No Limitations - History of Present Illness Initial comments: 55-year-old male with past medical history of hypertension and morbid obesity presents to the ER today with complaints of left heel pain. Patient states that his symptoms started about 2 days ago. He states that he woke up with the pain. He denies any particular injury or strenuous activity. Patient states that the pain is mainly to the posterior aspect of his left heel. He states that it mireles and hurts more on dorsiflexion of his left foot and with weightbearing and ambulation. Patient does admit that he has a history of plantar fasciitis. He states that he was diagnosed with it about 3 years ago. He was seen a [facility], where he used to live and he had therapy and was placed in the boot for a few weeks after which his symptoms are improved. Patient states that the pain in his left heel, he is not sure if is related to recurrence of his plantar fasciitis or heel spur. He reports some swelling, but no skin discoloration. He has not been taking anything for the pain. He reports no additional symptoms at this time. MD Complaint: other (heel pain ) -: Gradual, days(s) (2) - Related Data Previous Rx's Medication Instructions Recorded Last Taken Type lisinopriL [Zestril TAB] 5 mg PO QDAY #30 tablet 07/09/17 Unknown Rx Fluticasone [Flonase] 1 spray NS QDAY #1 bottle 03/20/18 Unknown Rx Loratadine (Nf) [Claritin (Nf)] 10 mg PO DAILY #30 tablet 03/20/18 Unknown Rx Metoprolol Tartrate 50 mg PO BID #60 tablet 03/20/18 Unknown Rx Aspirin EC [Halfprin EC] 81 mg PO QDAY #30 tablet 03/15/19 Unknown Rx AtorvaSTATin [Lipitor] 40 mg PO QHS #30 tablet 03/15/19 Unknown Rx Azithromycin [Zithromax TAB] 500 mg PO QDAY #2 tablet 03/15/19 Unknown Rx Furosemide [Lasix TAB] 40 mg PO QDAY #30 tablet 03/15/19 Unknown Rx Acetaminophen/Codeine [Tylenol 1 tab PO Q6H PRN #12 tab 11/24/20 Unknown Rx /Codeine # 3 tab] Ibuprofen [Motrin] 600 mg PO Q8H PRN #30 tablet 11/24/20 Unknown Rx Allergies Allergy/AdvReac Type Severity Reaction Status Date / Time No Known Allergies Allergy Verified 03/12/19 22:39 ED Review of Systems ROS: Stated complaint: LEFT HEAL FOOT PAIN Other details as noted in HPI Comment: All other systems reviewed and negative Respiratory: denies: cough, shortness of breath, SOB with exertion, SOB at rest, wheezing Cardiovascular: denies: chest pain, palpitations Musculoskeletal: joint swelling, arthralgia Neurological: denies: headache, weakness, paresthesias Psychiatric: denies: anxiety, depression Hematological/Lymphatic: denies: easy bleeding, easy bruising ED Past Medical Hx - Past Medical History Previous Medical History?: Yes Hx Hypertension: Yes Hx Congestive Heart Failure: Yes Hx Diabetes: No Hx Asthma: No Hx COPD: No Additional medical history: A fib - Surgical History Past Surgical History?: No - Social History Smoking Status: Never Smoker - Medications Home Medications: Home Medications Medication Instructions Recorded Confirmed Last Taken Type lisinopriL [Zestril TAB] 5 mg PO QDAY #30 tablet 07/09/17 03/13/19 Unknown Rx Fluticasone [Flonase] 1 spray NS QDAY #1 bottle 03/20/18 03/13/19 Unknown Rx Loratadine (Nf) [Claritin (Nf)] 10 mg PO DAILY #30 tablet 03/20/18 03/13/19 Unknown Rx Metoprolol Tartrate 50 mg PO BID #60 tablet 03/20/18 03/13/19 Unknown Rx Aspirin EC [Halfprin EC] 81 mg PO QDAY #30 tablet 03/15/19 Unknown Rx AtorvaSTATin [Lipitor] 40 mg PO QHS #30 tablet 03/15/19 Unknown Rx Azithromycin [Zithromax TAB] 500 mg PO QDAY #2 tablet 03/15/19 Unknown Rx Furosemide [Lasix TAB] 40 mg PO QDAY #30 tablet 03/15/19 Unknown Rx Acetaminophen/Codeine [Tylenol 1 tab PO Q6H PRN #12 tab 11/24/20 Unknown Rx /Codeine # 3 tab] Ibuprofen [Motrin] 600 mg PO Q8H PRN #30 tablet 11/24/20 Unknown Rx ED Physical Exam - General Limitations: No Limitations General appearance: alert, in no apparent distress, obese - Head Head exam: Present: atraumatic, normocephalic, normal inspection - Respiratory Respiratory exam: Absent: respiratory distress - Cardiovascular Cardiovascular Exam: Present: regular rate - Expanded Lower Extremity Exam Left Lower Leg exam: Present: normal inspection. Absent: tenderness Foot/Toe exam: Present: normal inspection, full ROM, tenderness (Moderate tenderness to palpation to the posterior aspect of patient's left heel. No apparent swelling, erythema or bruising noted. He has increased pain on dorsiflexion but he is able to fully plantarflex and dorsiflex his foot.) Neuro vascular tendon exam: Present: no vascular compromise. Absent: abnormal cap refill, motor deficit, sensory deficit Gait: Positive: observed and limited by pain - Neurological Exam Neurological exam: Present: alert, oriented X3, CN II-XII intact - Psychiatric Psychiatric exam: Present: normal affect, normal mood Critical care attestation.: If time is entered above; I have spent that time in minutes in the direct care of this critically ill patient, excluding procedure time. ED Disposition Clinical Impression: Pain of left heel Disposition: 01 HOME / SELF CARE / HOMELESS Is pt being admited?: No Does the pt Need Aspirin: No Condition: Stable Instructions: Plantar Fasciitis, Heel Spur Additional Instructions: I recommend that you do the stretching exercises that she was educated to do for your plantar fasciitis. Take the pain medications as prescribed. Follow up with the [facility] listed in your discharge instructions. Return to the ER if your symptoms changes or worsens in any way. Prescriptions: Ibuprofen [Motrin] 600 mg PO Q8H PRN #30 tablet PRN Reason: Pain Acetaminophen/Codeine [Tylenol /Codeine # 3 tab] 1 tab PO Q6H PRN #12 tab PRN Reason: Pain Referrals: FESTUS QUIROS DPM [Staff Physician] - 3-5 Days Forms: Work/School Release Form(ED) Time of Disposition: 03:29
[2020-11-24] MEDS ORDERED: IBUPROFEN 600 MG TAB PO ONE (03:34)
== END 2020-11-24 03:56 | disposition home or self-care (01) ==
LOC: ED 02:37
DX: M79.672 Pain in left foot (principal); Z86.79 Personal history of other diseases of the circulatory system; I10 Essential (primary) hypertension
CPT/HCPCS: 99281

== ENCOUNTER 2021-06-14 11:17 | Inpatient (IN) | payer OTHER ==
[2021-06-14 12:14] LABS: Basophils # (Auto) 0.1 K/mm3 (0.0-0.1); Basophils % (Auto) 0.8 % (0.0-1.8); Eosinophils # (Auto) 0.1 K/mm3 (0.0-0.4); Eosinophils % (Auto) 1.4 % (0.0-4.3); Hematocrit 45.6 % (35.5-45.6); Hemoglobin 14.6 gm/dl (11.8-15.2); Lymphocytes # (Auto) 0.9 K/mm3 (1.2-5.4); Lymphocytes % (Auto) 11.5 % (13.4-35.0); Mean Corpuscular HGB Conc 32 % (32-34); Mean Corpuscular Volume 90 fl (84-94); Monocytes # (Auto) 0.7 K/mm3 (0.0-0.8); Monocytes % (Auto) 9.1 % (0.0-7.3); Platelet Count 208 K/mm3 (140-440); Red Cell Distribution Width 16.5 % (13.2-15.2)
--- NOTE | 2021-06-14 12:26 | XRay Report ---
CHEST 1 VIEW INDICATION: Chest Pain. COMPARISON: 03/12/2019 FINDINGS: SUPPORT DEVICES: None. HEART: Within normal limits. LUNGS/PLEURA: No acute air space or interstitial disease. ADDITIONAL FINDINGS: None. IMPRESSION: 1. No acute findings. Signer Name: Ted Kulkarni MD Signed: 06/14/2021 12:22 PM Workstation Name: [id number]
[2021-06-14 12:40] LABS: Alanine Aminotransferase 29 units/L (7-56); Albumin 3.8 g/dL (3.9-5); BUN/Creatinine Ratio 12; Blood Urea Nitrogen 13 mg/dL (9-20); Calcium 9.2 mg/dL (8.4-10.2); Hemolysis Index 2
--- NOTE | 2021-06-14 12:42 | Emergency Department Report ---
HPI - HPI HPI: Mr. Warren is a 55-year-old morbidly obese -French male that came in complaining of 3 weeks of shortness of breath and dyspnea on exertion and orthopnea. He is got bilateral lower extremity edema which is chronic and he usually takes Lasix for it but he has not been taking it. He also has a history of high blood pressure and hypercholesterolemia. He denies diabetes. Reports he has had a dry cough. Denies nausea vomiting fever chills chest pain or any other associated symptoms. The patient says that has been told he is got sleep apnea but does not use any sleep masks or aids. He is noncompliant with his medication regimen. <PHI SIMENTAL - Last Filed: 06/14/21 12:42> <MINH ROCHA - Last Filed: 06/14/21 15:31> - General Chief Complaint: Dyspnea/Respdistress Time Seen by Provider: 06/14/21 11:48 ED Past Medical Hx - Past Medical History Hx Hypertension: Yes Hx Congestive Heart Failure: Yes Hx Diabetes: No Hx Asthma: No Hx COPD: No Additional medical history: A fib - Family History Family history: no significant - Social History Smoking Status: Never Smoker Substance Use Type: None <PHI SIMENTAL - Last Filed: 06/14/21 12:42> <MINH ROCHA - Last Filed: 06/14/21 15:31> - Medications Home Medications: Home Medications Medication Instructions Recorded Confirmed Last Taken Type Aspirin EC [Halfprin EC] 81 mg PO QDAY #30 tablet 03/15/19 06/14/21 Unknown Rx AtorvaSTATin [Lipitor] 40 mg PO QHS #30 tablet 03/15/19 06/14/21 Unknown Rx Furosemide [Lasix TAB] 40 mg PO QDAY #30 tablet 03/15/19 06/14/21 Unknown Rx carvediloL [Coreg] 12.5 mg PO BID 06/14/21 06/14/21 Unknown History lisinopriL [Zestril TAB] 20 mg PO QDAY 06/14/21 06/14/21 Unknown History traZODone [Desyrel] 50 mg PO QHS 06/14/21 06/14/21 Unknown History ED Review of Systems ROS: Stated complaint: SOB/COUGHING Other details as noted in HPI Comment: All other systems reviewed and negative <PHI SIMENTAL - Last Filed: 06/14/21 12:42> ROS: Stated complaint: SOB/COUGHING Other details as noted in HPI <MINH ROCHAFELECIASergo - Last Filed: 06/14/21 15:31> Physical Exam - Physical Exam Vital Signs: Vital Signs 06/14/21 06/14/21 11:33 11:38 Temperature 98.9 F Pulse Rate 95 H Respiratory 20 Rate Blood Pressure 154/103 [Right] O2 Sat by Pulse 87 94 Oximetry Physical Exam: Physical Exam Constitutional: Morbidly obese General: No acute distress. Appearance: No diaphoresis. HENT: Head: Normocephalic. Eyes: Pupils: Pupils are equal, round, and reactive to light. Neck: Musculoskeletal: Normal range of motion. Cardiovascular: Rate and Rhythm: Normal rate and regular rhythm. Pulses: Intact distal pulses. Heart sounds: Normal heart sounds. No murmur. Pulmonary: Effort: No respiratory distress. Breath sounds: No wheezing or rales. Chest: Chest wall: No tenderness. Abdominal: General: There is no distension. Palpations: There is no mass. Tenderness: There is no abdominal tenderness. There is no guarding or rebound. Musculoskeletal: Normal range of motion. +2 pretibial pitting edema on bilateral lower extremities with venous stasis insufficiency changes of the skin. Skin: General: Skin is warm and dry. Neurological: Mental Status: Alert and oriented to person, place, and time. Psychiatric: Mood and Affect: Mood and affect normal. Cognition and Memory: Memory normal. Judgment: Judgment normal. <PHI SIMENTAL - Last Filed: 06/14/21 12:42> - Physical Exam Vital Signs: Vital Signs 06/14/21 06/14/21 06/14/21 11:33 11:38 12:00 Temperature 98.9 F Pulse Rate 95 H Respiratory 20 Rate Blood Pressure Blood Pressure 154/103 [Right] O2 Sat by Pulse 87 94 95 Oximetry 06/14/21 06/14/21 06/14/21 12:15 12:30 12:44 Temperature Pulse Rate 104 H 109 H Respiratory 22 13 18 Rate Blood Pressure 163/112 Blood Pressure [Right] O2 Sat by Pulse 98 96 97 Oximetry 06/14/21 06/14/21 06/14/21 12:46 12:48 13:00 Temperature Pulse Rate 107 H 105 H 102 H Respiratory 18 18 22 Rate Blood Pressure 163/112 151/97 Blood Pressure 163/112 [Right] O2 Sat by Pulse 97 97 96 Oximetry 06/14/21 06/14/21 06/14/21 13:16 13:30 14:00 Temperature Pulse Rate 108 H 109 H 108 H Respiratory 18 22 22 Rate Blood Pressure 151/97 137/94 133/104 Blood Pressure [Right] O2 Sat by Pulse 97 98 97 Oximetry 06/14/21 06/14/21 14:30 15:00 Temperature Pulse Rate 111 H 109 H Respiratory 25 H 22 Rate Blood Pressure Blood Pressure [Right] O2 Sat by Pulse 87 96 Oximetry <MINH ROCHA - Last Filed: 06/14/21 15:31> ED Course Vital Signs 06/14/21 06/14/21 11:33 11:38 Temperature 98.9 F Pulse Rate 95 H Respiratory 20 Rate Blood Pressure 154/103 [Right] O2 Sat by Pulse 87 94 Oximetry - Reevaluation(s) Reevaluation #1: 06/14/21 12:43 EKG done and interpreted at 234 shows a rate of 104, tachycardia. The rhythm is sinus tachycardia. There are no ST or T wave abnormalities. <PHI SIMENTAL - Last Filed: 06/14/21 12:42> Vital Signs 06/14/21 06/14/21 06/14/21 11:33 11:38 12:00 Temperature 98.9 F Pulse Rate 95 H Respiratory 20 Rate Blood Pressure Blood Pressure 154/103 [Right] O2 Sat by Pulse 87 94 95 Oximetry 06/14/21 06/14/21 06/14/21 12:15 12:30 12:44 Temperature Pulse Rate 104 H 109 H Respiratory 22 13 18 Rate Blood Pressure 163/112 Blood Pressure [Right] O2 Sat by Pulse 98 96 97 Oximetry 06/14/21 06/14/21 06/14/21 12:46 12:48 13:00 Temperature Pulse Rate 107 H 105 H 102 H Respiratory 18 18 22 Rate Blood Pressure 163/112 151/97 Blood Pressure 163/112 [Right] O2 Sat by Pulse 97 97 96 Oximetry 06/14/21 06/14/21 06/14/21 13:16 13:30 14:00 Temperature Pulse Rate 108 H 109 H 108 H Respiratory 18 22 22 Rate Blood Pressure 151/97 137/94 133/104 Blood Pressure [Right] O2 Sat by Pulse 97 98 97 Oximetry 06/14/21 06/14/21 14:30 15:00 Temperature Pulse Rate 111 H 109 H Respiratory 25 H 22 Rate Blood Pressure Blood Pressure [Right] O2 Sat by Pulse 87 96 Oximetry - Reevaluation(s) Reevaluation #2: 06/14/21 15:26 This patient signed out to me while waiting for CTA of the chest to rule out any PE. Patient presents with shortness of breath for the last 3 weeks progressiv marilynn getting worse. Patient has history of sleep apnea and is morbidly obese. Work-up so far pretty unremarkable for any sign of infection. Chest x-ray is negative for any acute finding except mild vascular congestion. CTA of the chest is negative for PE or any pneumonia. Patient continued to need 3 L of oxygen to sustain 96% O2. This patient sleep apnea probably not helping his shortness of breath. Is noted with slightly elevated BNP at 699. Considering this patient age this might be an indication for mild CHF. Due to this we will go ahead and consider admission for CHF and have echocardiogram done in the morning. Dr. Youngblood consulted who accepted patient for further evaluation and t reatment. <MINH ROCHA - Last Filed: 06/14/21 15:31> ED Medical Decision Making - Lab Data Result diagrams: 06/14/21 12:08 06/14/21 12:08 <PHI SIMENTAL - Last Filed: 06/14/21 12:42> - Lab Data Result diagrams: 06/14/21 12:08 06/14/21 12:08 - Medical Decision Making 3 weeks of dyspnea and orthopnea coupled with elevated BNP and history of sleep apnea and chronic lower leg pitting edema--makes acute CHF a possibility <MINH ROCHA - Last Filed: 06/14/21 15:31> Critical care attestation.: If time is entered above; I have spent that time in minutes in the direct care of this critically ill patient, excluding procedure time. <PHI SIMENTAL - Last Filed: 06/14/21 12:42> Critical care attestation.: If time is entered above; I have spent that time in minutes in the direct care of this critically ill patient, excluding procedure time. <MINH ROCHA - Last Filed: 06/14/21 15:31> ED Disposition <PHI SIMENTAL - Last Filed: 06/14/21 12:42> Is pt being admited?: Yes Does the pt Need Aspirin: No Time of Disposition: 15:31 (Dr. Youngblood consulted who accepted patient for further evaluation and treatment) <MINH ROCHA - Last Filed: 06/14/21 15:31> Clinical Impression: Dependent edema Dyspnea Qualifiers: Dyspnea type: dyspnea on exertion Qualified Code(s): R06.00 - Dyspnea, unspecified CHF (congestive heart failure) Qualifiers: Heart failure type: unspecified Heart failure chronicity: acute Qualified Code(s): I50.9 - Heart failure, unspecified Disposition: 09 ADMITTED INPATIENT Condition: Stable
[2021-06-14] MEDS ORDERED: LORazepam 2 MG/ML VIAL IV ONE (13:24)
--- NOTE | 2021-06-14 15:16 | Cat Scan Report ---
CTA CHEST WITH CONTRAST INDICATION / CLINICAL INFORMATION: hypoxia. TECHNIQUE: Axial CT images were obtained through the chest after injection of 85 cc of Omnipaque 350 IV contrast. 3 plane MIP and/or 3D reconstructions were produced. All CT scans at this location are p erformed using CT dose reduction for ALARA by means of automated exposure control. COMPARISON: CTA chest 07/07/2017 FINDINGS: PULMONARY ARTERIES: No pulmonary emboli. THORACIC AORTA: No significant abnormality. HEART: No significant abnormality. CORONARY ARTERY CALCIFICATION: None. MEDIASTINUM / NICKOLAS: No significant abnormality. PLEURA: No pleural effusion. No pneumothorax. LUNGS: No acute air space or interstitial disease. ADDITIONAL FINDINGS: None. UPPER ABDOMEN: No acute findings. SKELETAL STRUCTURES: Degenerative changes of the spine. No aggressive osseous lesion. IMPRESSION: 1. No CT evidence for pulmonary embolism. 2. No acute findings. Signer Name: Chino Manning MD Signed: 06/14/2021 3:11 PM Workstation Name: [id number]
[2021-06-14] MEDS ORDERED: ONDANSETRON 4 MG/2 ML INJ IV PRN ×2 (15:33→17:37)
[2021-06-14] MEDS ORDERED: ACETAMINOPHEN 325 MG TAB PO PRN ×2 (15:33→17:37)
[2021-06-14] MEDS ORDERED: MORPHINE 2 MG/1 ML INJ IV PRN (15:33)
[2021-06-14] MEDS: ENOXAPARIN 40 MG/0.4 ML INJ SUB-Q SCH (16:10)
--- NOTE | 2021-06-14 16:28 | Electrocardiograph Report ---
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
[2021-06-14] MEDS ORDERED: METOCLOPRAMIDE 10 MG/2 ML INJ IV PRN (17:37)
[2021-06-14] MEDS: SPIRONOLACTONE 50 MG TAB PO SCH (17:45)
[2021-06-14] MEDS: LISINOPRIL 5 MG TAB PO SCH (17:45)
[2021-06-14] MEDS: ASPIRIN EC 81 MG TAB PO SCH (17:45)
[2021-06-14] MEDS: FUROSEMIDE 40 MG/4 ML INJ IV SCH (17:47)
[2021-06-14] MEDS ORDERED: FUROSEMIDE 40 MG TAB PO SCH (18:00)
[2021-06-14] MEDS ORDERED: IPRATROPIUM/ALBUTEROL SULFATE 3 ML AMPUL.NEB IH PRN (18:15)
[2021-06-14] MEDS ORDERED: ALBUTEROL 2.5 MG/3 ML NEBU IH PRN (18:29)
[2021-06-14] MEDS: FAMOTIDINE 20 MG TAB PO SCH (21:27)
[2021-06-14] MEDS: traZODone 50 MG TAB PO SCH (21:27)
[2021-06-14] MEDS: carvediloL 12.5 MG TAB PO SCH (21:28)
[2021-06-14] MEDS: guaiFENesin 200 MG TAB PO PRN (22:57)
[2021-06-15] MEDS: FUROSEMIDE 40 MG/4 ML INJ IV SCH ×2 (05:54→18:08)
--- NOTE | 2021-06-15 06:39 | History and Physical Report ---
History of Present Illness Date of examination: 06/14/21 Date of admission: 06/14/21 15:33 Chief complaint: Shortness of breath. For 3 weeks History of present illness: 55-year-old -Nepalese male with morbid obesity weighing about 380 pounds comes in for increasing shortness of breath of 3 days duration patient is very short of breath walk about 10 steps. Patient also has orthopnea. Patient symptoms are consistent with class IV NYHA symptoms. No vomiting. Patient also has history of hypertension and atrial fibrillation. Was diagnosed with congestive heart failure but has been noncompliant. Patient apparently follows with [facility]. Patient also noticed swelling of both the lower extremities. Worsening symptoms over the last 3 weeks. Exercises are exacerbating factor and specifically being factor. No chest pain - Past Medical History --Hypertension: Yes --Congestive Heart Failure: Yes --Additional medical history: A fib -past surgical history --N/a - Family History --no significant - Social History --Smoking Status: Never Smoker --Substance Use Type: None --Likes food Review of Systems ROS: Constitutional morbidly obese--weighing about 375 pounds HEENT no sore throat no post nasal drip no diplopia Neck no neck stiffness no lymph gland enlargement Chest and lungs dyspnea on minimal exertion and orthopnea CVS dyspnea on minimal exertion GI no nausea no vomiting no diarrhea Genitourinary system no dysuria no flank pain Musculoskeletal system no muscle pains no joint pains [employer] no syncope no seizures Skin pedal edema present Psychiatric no depression no homicidal or suicidal tendencies Hematologic no lymphedema or bruising Endocrine no polydipsia no polyuria no cold intolerance no heat intolerance Medications and Allergies Allergies Allergy/AdvReac Type Severity Reaction Status Date / Time No Known Allergies Allergy Verified 03/12/19 22:39 Home Medications Medication Instructions Recorded Confirmed Last Taken Type Aspirin EC [Halfprin EC] 81 mg PO QDAY #30 tablet 03/15/19 06/14/21 Unknown Rx AtorvaSTATin [Lipitor] 40 mg PO QHS #30 tablet 03/15/19 06/14/21 Unknown Rx Furosemide [Lasix TAB] 40 mg PO QDAY #30 tablet 03/15/19 06/14/21 Unknown Rx carvediloL [Coreg] 12.5 mg PO BID 06/14/21 06/14/21 Unknown History lisinopriL [Zestril TAB] 20 mg PO QDAY 06/14/21 06/14/21 Unknown History traZODone [Desyrel] 50 mg PO QHS 06/14/21 06/14/21 Unknown History Active Meds: Active Medications Acetaminophen (Acetaminophen 325 Mg Tab) 650 mg PO Q4H PRN PRN Reason: Pain MILD(1-3)/Fever >100.5/NEGRON Albuterol (Albuterol 2.5 Mg/3 Ml Nebu) 2.5 mg IH Q3HRT PRN PRN Reason: Shortness Of Breath Aspirin (Aspirin Ec 81 Mg Tab) 81 mg PO QDAY [facility] Last Admin: 06/14/21 17:45 Dose: 81 mg Atorvastatin Calcium (Atorvastatin 40 Mg Tab) 40 mg PO QHS [facility] Last Admin: 06/14/21 21:27 Dose: 40 mg Carvedilol (Carvedilol 12.5 Mg Tab) 12.5 mg PO BID [facility] Last Admin: 06/14/21 21:28 Dose: 12.5 mg Enoxaparin Sodium (Enoxaparin 40 Mg/0.4 Ml Inj) 40 mg SUB-Q QDAY [facility] Last Admin: 06/14/21 16:10 Dose: 40 mg Famotidine (Famotidine 20 Mg Tab) 20 mg PO BID [facility] Last Admin: 06/14/21 21:27 Dose: 20 mg Furosemide (Furosemide 40 Mg Tab) 40 mg PO QDAY [facility] Last Admin: 06/14/21 17:47 Dose: Not Given Furosemide (Furosemide 40 Mg/4 Ml Inj) 40 mg IV 0600,1800 [facility] Last Admin: 06/15/21 05:54 Dose: 40 mg Guaifenesin (Guaifenesin 200 Mg Tab) 200 mg PO Q6H PRN PRN Reason: Cough Last Admin: 06/14/21 22:57 Dose: 200 mg Lisinopril (Lisinopril 5 Mg Tab) 20 mg PO QDAY [facility] Last Admin: 06/14/21 17:45 Dose: 20 mg Metoclopramide HCl (Metoclopramide 10 Mg/2 Ml Inj) 10 mg IV Q6H PRN PRN Reason: Nausea And Vomiting Morphine Sulfate (Morphine 2 Mg/1 Ml Inj) 2 mg IV Q4H PRN PRN Reason: Pain, Moderate (4-6) Ondansetron HCl (Ondansetron 4 Mg/2 Ml Inj) 4 mg IV Q3H PRN PRN Reason: Nausea And Vomiting Sodium Chloride (Sodium Chloride 0.9% 10 Ml Flush Syringe) 10 ml IV BID [facility] Last Admin: 06/14/21 21:31 Dose: 10 ml Sodium Chloride (Sodium Chloride 0.9% 10 Ml Flush Syringe) 10 ml IV PRN PRN PRN Reason: LINE FLUSH Sodium Chloride (Sodium Chloride 0.9% 10 Ml Flush Syringe) 10 ml IV BID [facility] Last Admin: 06/14/21 22:56 Dose: 10 ml Sodium Chloride (Sodium Chloride 0.9% 10 Ml Flush Syringe) 10 ml IV PRN PRN PRN Reason: LINE FLUSH Spironolactone (Spironolactone 50 Mg Tab) 50 mg PO QDAY [facility] Last Admin: 06/14/21 17:45 Dose: 50 mg Trazodone HCl (Trazodone 50 Mg Tab) 50 mg PO QHS [facility] Last Admin: 06/14/21 21:27 Dose: 50 mg Exam - Constitutional Vitals: Temp Pulse Resp BP Pulse Ox 98.5 F 118 H 20 122/70 94 06/15/21 04:39 06/15/21 04:53 06/15/21 04:39 06/15/21 04:39 06/15/21 04:39 General appearance: Present: mild distress, well-nourished - EENT Eyes: Present: PERRL ENT: hearing intact, clear oral mucosa - Neck Neck: Present: supple, normal ROM - Respiratory Respiratory effort: normal Respiratory: bilateral: rales, rhonchi - Cardiovascular Heart rate: 78 Rhythm: regular Heart Sounds: Present: S1 & S2. Absent: rub, click - Extremities Extremities: no ischemia, pulses symmetrical, No edema (3+ pedal edema) Peripheral Pulses: within normal limits - Abdominal General gastrointestinal: Present: soft, non-tender, non-distended, normal bowel sounds Male genitourinary: Present: normal - Integumentary Integumentary: Present: clear, warm, dry - Musculoskeletal Musculoskeletal: gait normal, strength equal bilaterally - Psychiatric Psychiatric: appropriate mood/affect, intact judgment & insight - Neurologic Neurologic: CNII-XII intact, moves all extremities - Allied Health Allied health notes reviewed: nursing, case management HEART Score - HEART Score History: Moderately suspicious Age: 45-65 Risk factors: > 3 risk factors or hx of atherosclerotic disease Troponin: Troponin T < 0.010 ng/mL (0.00-0.029) 06/14/21 12:08 Troponin: 1-3x normal limit - Critical Actions Critical Actions: 4-6 pts:12-16.6% risk of adverse cardiac event. Should be admitted Results - Labs CBC & Chem 7: 06/14/21 12:08 06/14/21 12:08 Labs: Laboratory Last Values WBC 8.0 K/mm3 (4.5-11.0) 06/14/21 12:08 RBC 5.10 M/mm3 (3.65-5.03) H 06/14/21 12:08 Hgb 14.6 gm/dl (11.8-15.2) 06/14/21 12:08 Hct 45.6 % (35.5-45.6) 06/14/21 12:08 MCV 90 fl (84-94) 06/14/21 12:08 MCH 29 pg (28-32) 06/14/21 12:08 MCHC 32 % (32-34) 06/14/21 12:08 RDW 16.5 % (13.2-15.2) H 06/14/21 12:08 Plt Count 208 K/mm3 (140-440) 06/14/21 12:08 Lymph % (Auto) 11.5 % (13.4-35.0) L 06/14/21 12:08 Edwards % (Auto) 9.1 % (0.0-7.3) H 06/14/21 12:08 Eos % (Auto) 1.4 % (0.0-4.3) 06/14/21 12:08 Baso % (Auto) 0.8 % (0.0-1.8) 06/14/21 12:08 Lymph # (Auto) 0.9 K/mm3 (1.2-5.4) L 06/14/21 12:08 Edwards # (Auto) 0.7 K/mm3 (0.0-0.8) 06/14/21 12:08 Eos # (Auto) 0.1 K/mm3 (0.0-0.4) 06/14/21 12:08 Baso # (Auto) 0.1 K/mm3 (0.0-0.1) 06/14/21 12:08 Seg Neutrophils % 77.2 % (40.0-70.0) H 06/14/21 12:08 Seg Neutrophils # 6.2 K/mm3 (1.8-7.7) 06/14/21 12:08 Sodium 140 mmol/L (137-145) 06/14/21 12:08 Potassium 4.4 mmol/L (3.6-5.0) 06/14/21 12:08 Chloride 100.6 mmol/L (98-107) 06/14/21 12:08 Carbon Dioxide 29 mmol/L (22-30) 06/14/21 12:08 Anion Gap 15 mmol/L 06/14/21 12:08 BUN 13 mg/dL (9-20) 06/14/21 12:08 Creatinine 1.1 mg/dL (0.8-1.3) 06/14/21 12:08 Estimated GFR > 60 ml/min 06/14/21 12:08 BUN/Creatinine Ratio 12 % 06/14/21 12:08 Glucose 109 mg/dL (75-100) H 06/14/21 12:08 Lactic Acid 1.00 mmol/L (0.7-2.0) 06/14/21 15:06 Calcium 9.2 mg/dL (8.4-10.2) 06/14/21 12:08 Total Bilirubin 0.40 mg/dL (0.1-1.2) 06/14/21 12:08 AST 17 units/L (5-40) 06/14/21 12:08 ALT 29 units/L (7-56) 06/14/21 12:08 Alkaline Phosphatase 79 units/L (35-129) 06/14/21 12:08 Troponin T < 0.010 ng/mL (0.00-0.029) 06/14/21 12:08 NT-Pro-B Natriuret Pep 669.3 pg/mL (0-900) 06/14/21 12:08 Total Protein 7.1 g/dL (6.3-8.2) 06/14/21 12:08 Albumin 3.8 g/dL (3.9-5) L 06/14/21 12:08 Albumin/Globulin Ratio 1.2 % 06/14/21 12:08 Short CBC 06/14/21 Range/Units 12:08 WBC 8.0 (4.5-11.0) K/mm3 Hgb 14.6 (11.8-15.2) gm/dl Hct 45.6 (35.5-45.6) % Plt Count 208 (140-440) K/mm3 BMP 06/14/21 12:08 Sodium 140 Potassium 4.4 Chloride 100.6 Carbon Dioxide 29 BUN 13 Creatinine 1.1 Glucose 109 H Calcium 9.2 Cardiac Enzymes 06/14/21 Range/Units 12:08 Troponin T < 0.010 (0.00-0.029) ng/mL Liver Function 06/14/21 Range/Units 12:08 Total Bilirubin 0.40 (0.1-1.2) mg/dL AST 17 (5-40) units/L ALT 29 (7-56) units/L Alkaline Phosphatase 79 (35-129) units/L Albumin 3.8 L (3.9-5) g/dL Microbiology: Microbiology 06/14/21 12:08 Peripheral/Venous Blood Culture - Preliminary Culture in Progress 06/14/21 12:08 Peripheral/Venous Blood Culture - Preliminary Culture in Progress - Imaging and Cardiology Imaging and Cardiology: Chest x-ray No acute findings EKG Sinus tachycardia Heart rate of 104 Low voltage precordial leads Consider anterior infarct No previous EKG available for Garcia/IV: Voiding Method Urinal Assessment and Plan Advance Directives: Yes (Full code) VTE prophylaxis?: Chemical Plan of care discussed with patient/family: Yes - Patient Problems (1) Acute respiratory failure with hypoxia Current Visit: Yes Status: Acute Plan to address problem: Patient was hypoxic at the admission to ER Improved with oxygen supplementation (2) Acute HFrEF (heart failure with reduced ejection fraction) Current Visit: No Status: Acute Plan to address problem: Echocardiogram for ejection fraction, no wall motion abnormalities and valve function Daily intake and output Daily weights Cardiology consult IV Lasix and Aldactone (3) Hypertension Current Visit: Yes Status: Chronic Qualifiers: Hypertension type: primary hypertension Qualified Code(s): I10 - Essential (primary) hypertension Plan to address problem: Continue antihypertensives and adjust medications (4) Hyperlipidemia Current Visit: Yes Status: Chronic Qualifiers: Hyperlipidemia type: mixed hyperlipidemia Qualified Code(s): E78.2 - Mixed hyperlipidemia Plan to address problem: Continue high intensity statins (5) A-fib Current Visit: Yes Status: Chronic Qualifiers: Atrial fibrillation type: paroxysmal Qualified Code(s): I48.0 - Paroxysmal atrial fibrillation Plan to address problem: Patient is in sinus tachycardia Eliquis if patient is in A. fib We will defer to cardiology (6) Morbid obesity with BMI of 50.0-59.9, adult Current Visit: Yes Status: Chronic Plan to address problem: Patient counseled about working to bariatric surgery as outpatient Patient to be given referral to Dr. Bai who is a bariatric surgeon in this facility Dietitian consult to lose weight (7) DVT prophylaxis Current Visit: Yes Status: Acute Plan to address problem: On anticoagulation and GI prophylaxis (8) Advance care planning Current Visit: Yes Status: Acute Plan to address problem: Disease education conducted, care plan discussed, diagnosis discussed, prognosis discussed. Patient is full code. Patient acknowledges understanding and agreement with care plan. +30 minutes.
[2021-06-15] MEDS: FAMOTIDINE 20 MG TAB PO SCH ×2 (09:17→21:29)
[2021-06-15] MEDS: carvediloL 12.5 MG TAB PO SCH ×2 (09:17→21:29)
[2021-06-15] MEDS: ASPIRIN EC 81 MG TAB PO SCH (09:17)
[2021-06-15] MEDS: SPIRONOLACTONE 50 MG TAB PO SCH (09:17)
[2021-06-15] MEDS: ENOXAPARIN 40 MG/0.4 ML INJ SUB-Q SCH (09:17)
[2021-06-15 09:23] LABS: Hematocrit 46.4 % (35.5-45.6); Hemoglobin 14.7 gm/dl (11.8-15.2); Mean Corpuscular HGB Conc 32 % (32-34); Mean Corpuscular Volume 90 fl (84-94); Platelet Count 232 K/mm3 (140-440); Red Blood Count 5.18 M/mm3 (3.65-5.03); Red Cell Distribution Width 16.3 % (13.2-15.2)
[2021-06-15 09:46] LABS: BUN/Creatinine Ratio 11; Blood Urea Nitrogen 14 mg/dL (9-20); Calcium 9.3 mg/dL (8.4-10.2); Hemolysis Index 29
--- NOTE | 2021-06-15 11:44 | Consultation ---
History of Present Illness Consult date: 06/15/21 Requesting physician: RODRIGO ALBA Consult reason: congestive heart failure History of present illness: Chief complaint: Cough, worsening shortness of breath This is a 55-year-old -[place]ian male, known to our practice (follows with Dr. Rodriguez), with past medical history of morbid obesity, HFpEF (EF 50 to 55%), hypertension, sleep apnea, and nonischemic dilated cardiomyopathy (last [facility] 10/2019) who presented to [facility] with complaints of significant cough over the past 5 to 6 months. He states that the cough is associated with mucus drainage and allergy symptoms, however over the last 1 month he began experiencing worsening shortness of breath, exertional dyspnea, and cough which prompted his visit. He has also had associated bilateral lower extremity edema, and states he has been recently diagnosed with venous insufficiency. He describes extreme exercise intolerance/decreased functional status and states that walking from one side of the room to the other requires him to sit down and catch his breath for approximately 10 minutes. 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 He further endorses orthopnea and PND. Lastly, he states he has not been compliant with low-sodium diet nor fluid restriction at this time. But does endorse that he mostly is compliant with cardiac medications. He has not been compliant with home CPAP machine. He denies chest pain, palpitations, nausea/vomiting/recent sick contacts. He states that he is fully vaccinated for Covid. Cardiology is consulted for CHF exacerbation Past History Past Medical History: heart failure, hypertension, hyperlipidemia Past Surgical History: No surgical history Social history: no significant social history. denies: smoking, alcohol abuse Family history: CAD, hypertension Medications and Allergies Allergies Allergy/AdvReac Type Severity Reaction Status Date / Time No Known Allergies Allergy Verified 06/15/21 12:50 Home Medications Medication Instructions Recorded Confirmed Last Taken Type Aspirin EC [Halfprin EC] 81 mg PO QDAY #30 tablet 03/15/19 06/14/21 Unknown Rx AtorvaSTATin [Lipitor] 40 mg PO QHS #30 tablet 03/15/19 06/14/21 Unknown Rx Furosemide [Lasix TAB] 40 mg PO QDAY #30 tablet 03/15/19 06/14/21 Unknown Rx carvediloL [Coreg] 12.5 mg PO BID 06/14/21 06/14/21 Unknown History lisinopriL [Zestril TAB] 20 mg PO QDAY 06/14/21 06/14/21 Unknown History traZODone [Desyrel] 50 mg PO QHS 06/14/21 06/14/21 Unknown History Active Meds: Active Medications Acetaminophen (Acetaminophen 325 Mg Tab) 650 mg PO Q4H PRN PRN Reason: Pain MILD(1-3)/Fever >100.5/NEGRON Albuterol (Albuterol 2.5 Mg/3 Ml Nebu) 2.5 mg IH Q3HRT PRN PRN Reason: Shortness Of Breath Aspirin (Aspirin Ec 81 Mg Tab) 81 mg PO QDAY [facility] Last Admin: 06/15/21 09:17 Dose: 81 mg Atorvastatin Calcium (Atorvastatin 40 Mg Tab) 40 mg PO QHS [facility] Last Admin: 06/14/21 21:27 Dose: 40 mg Carvedilol (Carvedilol 12.5 Mg Tab) 12.5 mg PO BID [facility] Last Admin: 06/15/21 09:17 Dose: 12.5 mg Enoxaparin Sodium (Enoxaparin 40 Mg/0.4 Ml Inj) 40 mg SUB-Q QDAY [facility] Last Admin: 06/15/21 09:17 Dose: 40 mg Famotidine (Famotidine 20 Mg Tab) 20 mg PO BID [facility] Last Admin: 06/15/21 09:17 Dose: 20 mg Furosemide (Furosemide 40 Mg/4 Ml Inj) 40 mg IV 0600,1800 [facility] Last Admin: 06/15/21 05:54 Dose: 40 mg Guaifenesin (Guaifenesin 200 Mg Tab) 200 mg PO Q6H PRN PRN Reason: Cough Last Admin: 06/14/21 22:57 Dose: 200 mg Lisinopril (Lisinopril 5 Mg Tab) 20 mg PO QDAY [facility] Last Admin: 06/14/21 17:45 Dose: 20 mg Metoclopramide HCl (Metoclopramide 10 Mg/2 Ml Inj) 10 mg IV Q6H PRN PRN Reason: Nausea And Vomiting Morphine Sulfate (Morphine 2 Mg/1 Ml Inj) 2 mg IV Q4H PRN PRN Reason: Pain, Moderate (4-6) Ondansetron HCl (Ondansetron 4 Mg/2 Ml Inj) 4 mg IV Q3H PRN PRN Reason: Nausea And Vomiting Sodium Chloride (Sodium Chloride 0.9% 10 Ml Flush Syringe) 10 ml IV BID [facility] Last Admin: 06/15/21 09:17 Dose: 10 ml Sodium Chloride (Sodium Chloride 0.9% 10 Ml Flush Syringe) 10 ml IV PRN PRN PRN Reason: LINE FLUSH Spironolactone (Spironolactone 50 Mg Tab) 50 mg PO QDAY [facility] Last Admin: 06/15/21 09:17 Dose: 50 mg Trazodone HCl (Trazodone 50 Mg Tab) 50 mg PO QHS [facility] Last Admin: 06/14/21 21:27 Dose: 50 mg Review of Systems All systems: negative Constitutional: fatigue, no fever, no chills, no night sweats Cardiovascular: orthopnea, edema, shortness of breath, dyspnea on exertion, paroxysmal nocturnal dyspnea, leg edema, decreased exercise tolerance, no chest pain, no palpitations, no syncope Respiratory: cough, cough with sputum, dyspnea on exertion, congestion, sleep apnea Gastrointestinal: no nausea, no vomiting, no diarrhea Allergic/Immunologic: allergic rhinitis Physical Examination Vital Signs Vital Signs - 12hr 06/15/21 06/15/21 06/15/21 00:07 04:39 04:53 Temperature 97.9 F 98.5 F Pulse Rate 105 H 100 H 118 H Respiratory 20 20 Rate Blood Pressure 115/71 Blood Pressure 122/70 [Right] O2 Sat by Pulse 95 94 Oximetry 06/15/21 06/15/21 06/15/21 08:14 08:15 10:34 Temperature 98.7 F Pulse Rate 94 H Respiratory 20 Rate Blood Pressure 111/68 Blood Pressure [Right] O2 Sat by Pulse 90 94 90 Oximetry General appearance: no acute distress HEENT: Positive: Normocephaly, Mucus Membranes Moist Neck: Positive: trachea midline Cardiac: Positive: Reg Rate and Rhythm, S1/S2 Lungs: Positive: Decreased Breath Sounds Neuro: Positive: Grossly Intact Abdomen: Positive: Unremarkable, Soft, Active Bowel Sounds Male genitourinary: Positive: deferred Skin: Positive: Moist. Negative: Rash Extremities: Present: upper extr. pulses (1+), +2 Edema, Cool (Slightly cool bilateral lower extremity around ankles) Results 06/15/21 08:37 06/15/21 08:37 Cardiac Enzymes 06/14/21 Range/Units 12:08 AST 17 (5-40) units/L CBC 06/14/21 06/15/21 Range/Units 12:08 08:37 WBC 8.0 8.4 (4.5-11.0) K/mm3 RBC 5.10 H 5.18 H (3.65-5.03) M/mm3 Hgb 14.6 14.7 (11.8-15.2) gm/dl Hct 45.6 46.4 H (35.5-45.6) % Plt Count 208 232 (140-440) K/mm3 Lymph # (Auto) 0.9 L (1.2-5.4) K/mm3 [place] # (Auto) 0.7 (0.0-0.8) K/mm3 Eos # (Auto) 0.1 (0.0-0.4) K/mm3 Baso # (Auto) 0.1 (0.0-0.1) K/mm3 Comprehensive Metabolic Panel 06/14/21 06/15/21 Range/Units 12:08 08:37 Sodium 140 139 (137-145) mmol/L Potassium 4.4 4.4 (3.6-5.0) mmol/L Chloride 100.6 98.9 (98-107) mmol/L Carbon Dioxide 29 27 (22-30) mmol/L BUN 13 14 (9-20) mg/dL Creatinine 1.1 1.3 (0.8-1.3) mg/dL Glucose 109 H 131 H (75-100) mg/dL Calcium 9.2 9.3 (8.4-10.2) mg/dL AST 17 (5-40) units/L ALT 29 (7-56) units/L Alkaline Phosphatase 79 (35-129) units/L Total Protein 7.1 (6.3-8.2) g/dL Albumin 3.8 L (3.9-5) g/dL - Imaging and Cardiology Echo: pending EKG: pending EKG interpretations - Telemetry EKG Rhythm: Sinus Rhythm - EKG Sinus rhythms and dysrhythmias: sinus tachycardia Assessment and Plan Assessment Acute on chronic HFpEF Nonischemic dilated cardiomyopathy Acute respiratory failure Dyspnea Morbid obesity Venous insufficiency Sleep apnea Hypertension Hyperlipidemia Cardiographics: EKG: Sinus tach; no acute ischemic change CXR: 06/14/21: No acute findings [facility] 10/2019 @ [facility]: Patent coronaries Recommendations/plan: Repeat Echocardiogram pending Chest CTA negative for acute PE Initial EKG with no acute ischemic changes Tele: SR 80's with PVCs BNP noted to be 669. Troponins negative. Agree with diuresis via Lasix 40 mg IV BID. GDMT: Continue carvedilol 12.5 mg p.o. twice daily, Lasix 40 mg IV twice daily, lisinopril 20 mg p.o. daily, spironolactone 50 mg p.o. daily., Lipitor 40 mg PO nightly Strict I&O/daily weights Closely monitor renal function, fluid status, and electrolytes. BMP in a.m. Recommend nightly CPAP usage Nutritional consult for heart failure diet education Patient seen in conjunction with Dr. Marmolejo who agrees with the assessment and management of this patient. - Patient Problems (1) Acute heart failure with preserved ejection fraction (HFpEF) Current Visit: Yes Status: Acute (2) Acute on chronic heart failure with preserved ejection fraction (HFpEF) Current Visit: Yes Status: Acute (3) Acute respiratory failure with hypoxia Current Visit: Yes Status: Acute (4) Dependent edema Current Visit: Yes Status: Acute (5) Dyspnea Current Visit: Yes Status: Acute Qualifiers: Dyspnea type: dyspnea on exertion Qualified Code(s): R06.00 - Dyspnea, unspecified (6) Hyperlipidemia Current Visit: Yes Status: Chronic Qualifiers: Hyperlipidemia type: mixed hyperlipidemia Qualified Code(s): E78.2 - Mixed hyperlipidemia (7) Hypertension Current Visit: Yes Status: Chronic Qualifiers: Hypertension type: primary hypertension Qualified Code(s): I10 - Essential (primary) hypertension (8) Morbid obesity with BMI of 50.0-59.9, adult Current Visit: Yes Status: Chronic (9) Cardiomyopathy Current Visit: No Status: Chronic (10) Sleep apnea Current Visit: Yes Status: Chronic
[2021-06-15] MEDS: LISINOPRIL 5 MG TAB PO SCH (12:11)
[2021-06-15] MEDS: guaiFENesin 200 MG TAB PO PRN (12:11)
--- NOTE | 2021-06-15 13:03 | Progress Note ---
Assessment and Plan Assessment and plan: #Acute on chronic systolic heart failure -Troponins unremarkable. CTA chest unremarkable for PE. - Continue CHF exacerbation protocol: Telemetry, Strict I/O, monitor urine outpu t every shift, daily weights, afterload reduction, low-sodium diet, and fluid restriction of approximately 1.5 mL/day. Continue IV Lasix 40 mg twice daily, spironolactone 50 mg daily, lisinopril 20 mg daily, Coreg 12.5 mg twice daily - Supplemental oxygen: 3 L nasal cannula (baseline room air) - ProBNP on admission: 669 - Cardiology consulted; appreciate recs -Pending TTE to evaluate EF - Continue to monitor #Acute hypoxic respiratory failure #Likely obesity hypoventilation syndrome - etiology: Likely secondary to obesity hypoventilation syndrome in addition to acute heart failure - baseline oxygen requirements: Room air - supplemental oxygen: 3 L nasal cannula - Continue protocol: continue pulse oximetry, wean oxygen as tolerated, ordered incentive spirometry and educated patient on how to use it and its importance. - Walk test: Will perform when patient clinically improves -Patient will benefit from nightly CPAP. Patient should have sleep study performed in outpatient setting. #Hypertension #Hyperlipidemia - home medications: - current medications: Coreg 12.5 mg twice daily, lisinopril 20 mg daily - SBP goal <160 and DBP goal <90 while inpatient - continue to monitor #Chronic atrial fibrillation Currently in sinus rhythm. Continue home Eliquis 5 mg every 12 hours #Morbid obesity #Weight loss counseling #Exercise counseling - BMI 56.5 - Counseled patient on the importance of weight loss, incorporating exercise, and dietary changes (lean meats, fresh fruits and vegetables, and water intake). Patient expresses understanding. - Time: + 15 min #Advanced care planning -Disease education conducted, care plan discussed, diagnoses discussed, prognosis discussed, and patient acknowledges understanding with care plan -Time: +30 min #Discharge planning - Patient is pending 48-72 hours - Case management has been made aware. - Discharge is tentatively resolution of respiratory and heart failure Disposition Plan: Continue medical management Total Time Spent with Patient (Minutes): 45 min Hospitalist Physical - Constitutional Vitals: Temp Pulse Resp BP Pulse Ox 98.7 F 94 H 20 116/74 90 06/15/21 08:15 06/15/21 08:15 06/15/21 08:15 06/15/21 12:10 06/15/21 10:34 General appearance: Present: no acute distress, well-nourished, obese - EENT Eyes: Present: PERRL, EOM intact ENT: hearing intact, clear oral mucosa, dentition normal - Neck Neck: Present: supple, normal ROM - Respiratory Respiratory effort: normal Respiratory: bilateral: diminished (on 3L NC) - Cardiovascular Rhythm: irregularly irregular Heart Sounds: Present: S1 & S2 - Extremities Extremities: no ischemia, pulses intact, pulses symmetrical, normal temperature, normal color, Full ROM Extremity abnormal: edema (1+ pitting edema of bilateral LE) Peripheral Pulses: within normal limits - Abdominal General gastrointestinal: soft, non-tender, non-distended, normal bowel sounds - Integumentary Integumentary: Present: clear, warm, dry - Psychiatric Psychiatric: appropriate mood/affect, intact judgment & insight, memory intact, cooperative - Neurologic Neurologic: CNII-XII intact, moves all extremities - Allied Health Allied health notes reviewed: nursing HEART Score - HEART Score Age: 45-65 Risk factors: > 3 risk factors or hx of atherosclerotic disease Troponin: Troponin T < 0.010 ng/mL (0.00-0.029) 06/14/21 12:08 Troponin: 1-3x normal limit - Critical Actions Critical Actions: 4-6 pts:12-16.6% risk of adverse cardiac event. Should be admitted Results - Labs CBC & Chem 7: 06/15/21 08:37 06/15/21 08:37 Labs: Laboratory Last Values WBC 8.4 K/mm3 (4.5-11.0) 06/15/21 08:37 RBC 5.18 M/mm3 (3.65-5.03) H 06/15/21 08:37 Hgb 14.7 gm/dl (11.8-15.2) 06/15/21 08:37 Hct 46.4 % (35.5-45.6) H 06/15/21 08:37 MCV 90 fl (84-94) 06/15/21 08:37 MCH 28 pg (28-32) 06/15/21 08:37 MCHC 32 % (32-34) 06/15/21 08:37 RDW 16.3 % (13.2-15.2) H 06/15/21 08:37 Plt Count 232 K/mm3 (140-440) 06/15/21 08:37 Lymph % (Auto) 11.5 % (13.4-35.0) L 06/14/21 12:08 [place] % (Auto) 9.1 % (0.0-7.3) H 06/14/21 12:08 Eos % (Auto) 1.4 % (0.0-4.3) 06/14/21 12:08 Baso % (Auto) 0.8 % (0.0-1.8) 06/14/21 12:08 Lymph # (Auto) 0.9 K/mm3 (1.2-5.4) L 06/14/21 12:08 [place] # (Auto) 0.7 K/mm3 (0.0-0.8) 06/14/21 12:08 Eos # (Auto) 0.1 K/mm3 (0.0-0.4) 06/14/21 12:08 Baso # (Auto) 0.1 K/mm3 (0.0-0.1) 06/14/21 12:08 Seg Neutrophils % 77.2 % (40.0-70.0) H 06/14/21 12:08 Seg Neutrophils # 6.2 K/mm3 (1.8-7.7) 06/14/21 12:08 Sodium 139 mmol/L (137-145) 06/15/21 08:37 Potassium 4.4 mmol/L (3.6-5.0) 06/15/21 08:37 Chloride 98.9 mmol/L (98-107) 06/15/21 08:37 Carbon Dioxide 27 mmol/L (22-30) 06/15/21 08:37 Anion Gap 18 mmol/L 06/15/21 08:37 BUN 14 mg/dL (9-20) 06/15/21 08:37 Creatinine 1.3 mg/dL (0.8-1.3) 06/15/21 08:37 Estimated GFR > 60 ml/min 06/15/21 08:37 BUN/Creatinine Ratio 11 % 06/15/21 08:37 Glucose 131 mg/dL (75-100) H 06/15/21 08:37 Lactic Acid 1.00 mmol/L (0.7-2.0) 06/14/21 15:06 Calcium 9.3 mg/dL (8.4-10.2) 06/15/21 08:37 Total Bilirubin 0.40 mg/dL (0.1-1.2) 06/14/21 12:08 AST 17 units/L (5-40) 06/14/21 12:08 ALT 29 units/L (7-56) 06/14/21 12:08 Alkaline Phosphatase 79 units/L (35-129) 06/14/21 12:08 Troponin T < 0.010 ng/mL (0.00-0.029) 06/14/21 12:08 NT-Pro-B Natriuret Pep 669.3 pg/mL (0-900) 06/14/21 12:08 Total Protein 7.1 g/dL (6.3-8.2) 06/14/21 12:08 Albumin 3.8 g/dL (3.9-5) L 06/14/21 12:08 Albumin/Globulin Ratio 1.2 % 06/14/21 12:08 Microbiology: Microbiology 06/14/21 12:08 Peripheral/Venous Blood Culture - Preliminary Culture in Progress 06/14/21 12:08 Peripheral/Venous Blood Culture - Preliminary Culture in Progress Garcia/IV: Voiding Method Urinal Active Medications - Current Medications Current Medications: Generic Name Dose Route Start Last Admin Trade Name Freq PRN Reason Stop Dose Admin Acetaminophen 650 mg 06/14/21 17:37 Acetaminophen 325 Mg Tab PO Q4H PRN Pain MILD(1-3)/Fever >100.5/NEGRON Albuterol 2.5 mg 06/14/21 18:29 Albuterol 2.5 Mg/3 Ml Nebu IH Q3HRT PRN Shortness Of Breath Aspirin 81 mg 06/14/21 18:00 06/15/21 09:17 Aspirin Ec 81 Mg Tab PO 81 mg QDAY CESAR Administration Atorvastatin Calcium 40 mg 06/14/21 22:00 06/14/21 21:27 Atorvastatin 40 Mg Tab PO 40 mg QHS CESAR Administration Carvedilol 12.5 mg 06/14/21 22:00 06/15/21 09:17 Carvedilol 12.5 Mg Tab PO 12.5 mg BID CESAR Administration Enoxaparin Sodium 40 mg 06/14/21 16:00 06/15/21 09:17 Enoxaparin 40 Mg/0.4 Ml Inj SUB-Q 40 mg QDAY CESAR Administration Famotidine 20 mg 06/14/21 22:00 06/15/21 09:17 Famotidine 20 Mg Tab PO 20 mg BID CESAR Administration Furosemide 40 mg 06/14/21 18:00 06/15/21 05:54 Furosemide 40 Mg/4 Ml Inj IV 40 mg 0600,1800 CESAR Administration Guaifenesin 200 mg 06/14/21 21:05 06/15/21 12:11 Guaifenesin 200 Mg Tab PO 200 mg Q6H PRN Administration Cough Lisinopril 20 mg 06/14/21 18:00 06/15/21 12:11 Lisinopril 5 Mg Tab PO 20 mg QDAY CESAR Administration Metoclopramide HCl 10 mg 06/14/21 17:37 Metoclopramide 10 Mg/2 Ml Inj IV Q6H PRN Nausea And Vomiting Morphine Sulfate 2 mg 06/14/21 15:33 Morphine 2 Mg/1 Ml Inj IV Q4H PRN Pain, Moderate (4-6) Ondansetron HCl 4 mg 06/14/21 17:37 Ondansetron 4 Mg/2 Ml Inj IV Q3H PRN Nausea And Vomiting Sodium Chloride 10 ml 06/14/21 22:00 06/15/21 09:17 Sodium Chloride 0.9% 10 Ml Flush Syringe IV 10 ml BID CESAR Administration Sodium Chloride 10 ml 06/14/21 17:37 Sodium Chloride 0.9% 10 Ml Flush Syringe IV PRN PRN LINE FLUSH Spironolactone 50 mg 06/14/21 18:00 06/15/21 09:17 Spironolactone 50 Mg Tab PO 50 mg QDAY CESAR Administration Trazodone HCl 50 mg 06/14/21 22:00 06/14/21 21:27 Trazodone 50 Mg Tab PO 50 mg QHS CESAR Administration Nutrition/Malnutrition Assess - Dietary Evaluation Nutrition/Malnutrition Findings: Nutrition Notes Start: 06/15/21 11:34 Freq: Status: Active Protocol: Document 06/15/21 11:34 KARINA (Rec: 06/15/21 11:51 KARINA [email or web address]) Nutrition Notes Need for Assessment generated from: MD Order,Education Initial or Follow up Assessment Current Diagnosis Hypertension,Respiratory Failure,Hyperlipidemia Other Pertinent Diagnosis CHF, HFrEF, Atrial Fibrilation , Bilateral LE Swelling. Current Diet Cardiac/Consistent Carbohydrates Diet (since B ). Labs/Tests 06/15: Glu 131. Pertinent Medications 06/15: Nutritionally unremarkable. Height 5 ft 6 in Weight 158.8 kg [place] Body Weight (kg) 64.54 BMI 56.5 Intake Prior to Admission Good Weight change and time frame Pt denies having loss body weight SENSITOMETRIST. Weight Status Morbidly Obese Subjective/Other Information RD consult for nutrition education. No reports on Pt's PO intake of meals at the time, will assess at F/U. Pt on Room Air, O2 saturation @ 90%, according to Physical Assessment History notes. Pt still in critical condition , not a candidate for Nutrition Education at the time, will assess feasibility on F/U. Percent of energy/protein needs met: Prescribed Cardiac/Consistent Carbohydrates Diet provides for energy/protein needs (1, 977 Kcal/86 g) during LOS. Burn Absent Trauma Absent GI Symptoms None Food Allergy No Skin Integrity/Comment Assessment WNL. Minimum of two criteria No #1 Nutrition Diagnosis No nutrition diagnosis at this time Comments: Will assess Pt's PO intake of meals at F/U. Will assess feasibility for nutrition education at F/U. Is patient on ventilator? No Is Patient Ambulatory and/or Out of Bed Yes REE-([facility]-ambulatory/OOB) [ 3068.975 NUTR.MSJOOB] Kcal/Kg value to use for calculation 10 Approximate Energy Requirements Using 1588 kcal/Kg Calculation Used for Recommendations Kcal/kg Additional Notes Protein: 0.8-1 g/Kg AdjBW; 90- 112 g/day. Fluids: 1 ml/Kcal, or as per MD. Nutrition Intervention Change Diet Order: Continue Cardiac/Consistent Carbohydrates Diet. Follow-Up By: 06/22/21 Additional Comments Nutrition education will be provided on F/U, if feasible. Continue monitoring food tolerance, %PO intake of meals , and BM.
[2021-06-15] MEDS: traZODone 50 MG TAB PO SCH (21:29)
[2021-06-16] MEDS: FUROSEMIDE 40 MG/4 ML INJ IV SCH ×2 (06:10→17:18)
[2021-06-16 06:27] LABS: Basophils # (Auto) 0.1 K/mm3 (0.0-0.1); Basophils % (Auto) 0.8 % (0.0-1.8); Eosinophils # (Auto) 0.2 K/mm3 (0.0-0.4); Hematocrit 45.8 % (35.5-45.6); Hemoglobin 14.4 gm/dl (11.8-15.2); Lymphocytes # (Auto) 0.9 K/mm3 (1.2-5.4); Lymphocytes % (Auto) 10.4 % (13.4-35.0); Mean Corpuscular HGB Conc 31 % (32-34); Mean Corpuscular Volume 90 fl (84-94); Monocytes % (Auto) 11.2 % (0.0-7.3); Platelet Count 223 K/mm3 (140-440); Red Blood Count 5.09 M/mm3 (3.65-5.03); Red Cell Distribution Width 16.7 % (13.2-15.2)
[2021-06-16 06:45] LABS: BUN/Creatinine Ratio 14; Blood Urea Nitrogen 19 mg/dL (9-20); Hemolysis Index 7
--- NOTE | 2021-06-16 11:14 | Progress Note ---
Assessment and Plan Assessment and plan: #Acute on chronic systolic heart failure -Troponins negative. CTA chest unremarkable for PE. -Continue CHF exacerbation protocol: Telemetry, Strict I/O, monitor urine output every shift, daily weights, afterload reduction, low-sodium diet, and fluid restriction of approximately 1.5 mL/day. Continue IV Lasix 40 mg twice daily, spironolactone 50 mg daily, lisinopril 20 mg daily, Coreg 12.5 mg twice daily -Supplemental oxygen: none, weaned to room air -ProBNP on admission: 669 -Cardiology consulted; appreciate recs -Pending TTE to evaluate EF #Acute hypoxic respiratory failure #Likely obesity hypoventilation syndrome -etiology: Likely secondary to obesity hypoventilation syndrome in addition to acute heart failure -baseline oxygen requirements: Room air -supplemental oxygen: none -Continue protocol: continue pulse oximetry, wean oxygen as tolerated, ordered incentive spirometry and educated patient on how to use it and its importance. -Walk test: ordered to be performed today -Patient will benefit from nightly CPAP. Patient should have sleep study performed in outpatient setting. #Hypertension #Hyperlipidemia -continue current medications: Coreg 12.5 mg twice daily, lisinopril 20 mg daily -SBP goal <160 and DBP goal <90 while inpatient -continue to monitor #Chronic atrial fibrillation Currently in sinus rhythm. Continue home Eliquis 5 mg every 12 hours #Acute Kidney Injury -Scr 1.4, likely secondary to diuresis -will continue to monitor -will avoid nephrotoxic agents, renally dose medications #Morbid obesity #Weight loss counseling #Exercise counseling - BMI 56.5 - Counseled patient on the importance of weight loss, incorporating exercise, and dietary changes (lean meats, fresh fruits and vegetables, and water intake). Patient expresses understanding. - Time: + 15 min #Advanced care planning -Disease education conducted, care plan discussed, diagnoses discussed, prognosis discussed, and patient acknowledges understanding with care plan -Time: +30 min #Discharge planning - Patient is pending 24-48 hours - Case management has been made aware. - Discharge is tentatively resolution of respiratory and heart failure History Interval history: No acute events overnight. Patient reports significant shortness of breath on ambulation which is worsening. Currently with good oxygen saturation on room air. He denies chest pain, shortness of breath and has noticed improvement in lower extremity swelling. Hospitalist Physical - Physical exam Narrative exam: GENERAL: Obese male. In no acute distress. HEENT: Normocephalic. Atraumatic. NECK: Supple. CHEST/LUNGS: CTAB on room air HEART/CARDIOVASCULAR: RRR. No murmur, rubs or gallops appreciated. ABDOMEN: +BS. NT/ND. SKIN: No rashes noted. NEURO: No focal motor deficit. Follows all commands and is ambulatory. MUSCULOSKELETAL: No joint effusion EXTREMITIES: Venous stasis changes in bilateral lower extremity. 1+ edema. PSYCH: Cooperative. - Constitutional Vitals: Temp Pulse Resp BP Pulse Ox 98.9 F 94 H 17 101/61 98 06/16/21 03:40 06/16/21 04:00 06/16/21 06:13 06/16/21 03:40 06/16/21 08:03 General appearance: Present: no acute distress HEART Score - HEART Score Age: 45-65 Risk factors: > 3 risk factors or hx of atherosclerotic disease Troponin: Troponin T < 0.010 ng/mL (0.00-0.029) 06/14/21 12:08 Troponin: 1-3x normal limit - Critical Actions Critical Actions: 4-6 pts:12-16.6% risk of adverse cardiac event. Should be admitted Results - Labs CBC & Chem 7: 06/16/21 04:41 06/16/21 04:41 Labs: Laboratory Last Values WBC 8.6 K/mm3 (4.5-11.0) 06/16/21 04:41 RBC 5.09 M/mm3 (3.65-5.03) H 06/16/21 04:41 Hgb 14.4 gm/dl (11.8-15.2) 06/16/21 04:41 Hct 45.8 % (35.5-45.6) H 06/16/21 04:41 MCV 90 fl (84-94) 06/16/21 04:41 MCH 28 pg (28-32) 06/16/21 04:41 MCHC 31 % (32-34) L 06/16/21 04:41 RDW 16.7 % (13.2-15.2) H 06/16/21 04:41 Plt Count 223 K/mm3 (140-440) 06/16/21 04:41 Lymph % (Auto) 10.4 % (13.4-35.0) L 06/16/21 04:41 [place] % (Auto) 11.2 % (0.0-7.3) H 06/16/21 04:41 Eos % (Auto) 2.0 % (0.0-4.3) 06/16/21 04:41 Baso % (Auto) 0.8 % (0.0-1.8) 06/16/21 04:41 Lymph # (Auto) 0.9 K/mm3 (1.2-5.4) L 06/16/21 04:41 [place] # (Auto) 1.0 K/mm3 (0.0-0.8) H 06/16/21 04:41 Eos # (Auto) 0.2 K/mm3 (0.0-0.4) 06/16/21 04:41 Baso # (Auto) 0.1 K/mm3 (0.0-0.1) 06/16/21 04:41 Seg Neutrophils % 75.6 % (40.0-70.0) H 06/16/21 04:41 Seg Neutrophils # 6.5 K/mm3 (1.8-7.7) 06/16/21 04:41 Sodium 138 mmol/L (137-145) 06/16/21 04:41 Potassium 4.1 mmol/L (3.6-5.0) 06/16/21 04:41 Chloride 96.3 mmol/L (98-107) L 06/16/21 04:41 Carbon Dioxide 27 mmol/L (22-30) 06/16/21 04:41 Anion Gap 19 mmol/L 06/16/21 04:41 BUN 19 mg/dL (9-20) 06/16/21 04:41 Creatinine 1.4 mg/dL (0.8-1.3) H 06/16/21 04:41 Estimated GFR > 60 ml/min 06/16/21 04:41 BUN/Creatinine Ratio 14 % 06/16/21 04:41 Glucose 133 mg/dL (75-100) H 06/16/21 04:41 Lactic Acid 1.00 mmol/L (0.7-2.0) 06/14/21 15:06 Calcium 9.0 mg/dL (8.4-10.2) 06/16/21 04:41 Total Bilirubin 0.40 mg/dL (0.1-1.2) 06/14/21 12:08 AST 17 units/L (5-40) 06/14/21 12:08 ALT 29 units/L (7-56) 06/14/21 12:08 Alkaline Phosphatase 79 units/L (35-129) 06/14/21 12:08 Troponin T < 0.010 ng/mL (0.00-0.029) 06/14/21 12:08 NT-Pro-B Natriuret Pep 669.3 pg/mL (0-900) 06/14/21 12:08 Total Protein 7.1 g/dL (6.3-8.2) 06/14/21 12:08 Albumin 3.8 g/dL (3.9-5) L 06/14/21 12:08 Albumin/Globulin Ratio 1.2 % 06/14/21 12:08 Procalcitonin 0.07 ng/mL (<0.15) 06/15/21 08:37 Coronavirus (PCR) Negative (Negative) 06/15/21 Unknown Microbiology: Microbiology 06/14/21 12:08 Peripheral/Venous Blood Culture - Preliminary NO GROWTH AFTER 24 HOURS 06/14/21 12:08 Peripheral/Venous Blood Culture - Preliminary NO GROWTH AFTER 24 HOURS Garcia/IV: Voiding Method Toilet Active Medications - Current Medications Current Medications: Generic Name Dose Route Start Last Admin Trade Name Freq PRN Reason Stop Dose Admin Acetaminophen 650 mg 06/14/21 17:37 Acetaminophen 325 Mg Tab PO Q4H PRN Pain MILD(1-3)/Fever >100.5/NEGRON Albuterol 2.5 mg 06/14/21 18:29 Albuterol 2.5 Mg/3 Ml Nebu IH Q3HRT PRN Shortness Of Breath Aspirin 81 mg 06/14/21 18:00 06/15/21 09:17 Aspirin Ec 81 Mg Tab PO 81 mg QDAY CESAR Administration Atorvastatin Calcium 40 mg 06/14/21 22:00 06/15/21 21:29 Atorvastatin 40 Mg Tab PO 40 mg QHS CESAR Administration Carvedilol 12.5 mg 06/14/21 22:00 06/15/21 21:29 Carvedilol 12.5 Mg Tab PO 12.5 mg BID CESAR Administration Enoxaparin Sodium 40 mg 06/14/21 16:00 06/15/21 09:17 Enoxaparin 40 Mg/0.4 Ml Inj SUB-Q 40 mg QDAY CESAR Administration Famotidine 20 mg 06/14/21 22:00 06/15/21 21:29 Famotidine 20 Mg Tab PO 20 mg BID CESAR Administration Furosemide 40 mg 06/14/21 18:00 06/16/21 06:10 Furosemide 40 Mg/4 Ml Inj IV 40 mg 0600,1800 CESAR Administration Guaifenesin 200 mg 06/14/21 21:05 06/15/21 12:11 Guaifenesin 200 Mg Tab PO 200 mg Q6H PRN Administration Cough Lisinopril 20 mg 06/14/21 18:00 06/15/21 12:11 Lisinopril 5 Mg Tab PO 20 mg QDAY CESAR Administration Metoclopramide HCl 10 mg 06/14/21 17:37 Metoclopramide 10 Mg/2 Ml Inj IV Q6H PRN Nausea And Vomiting Morphine Sulfate 2 mg 06/14/21 15:33 Morphine 2 Mg/1 Ml Inj IV Q4H PRN Pain, Moderate (4-6) Ondansetron HCl 4 mg 06/14/21 17:37 Ondansetron 4 Mg/2 Ml Inj IV Q3H PRN Nausea And Vomiting Sodium Chloride 10 ml 06/14/21 22:00 06/15/21 21:30 Sodium Chloride 0.9% 10 Ml Flush Syringe IV 10 ml BID CESAR Administration Sodium Chloride 10 ml 06/14/21 17:37 Sodium Chloride 0.9% 10 Ml Flush Syringe IV PRN PRN LINE FLUSH Spironolactone 50 mg 06/14/21 18:00 06/15/21 09:17 Spironolactone 50 Mg Tab PO 50 mg QDAY CESAR Administration Trazodone HCl 50 mg 06/14/21 22:00 06/15/21 21:29 Trazodone 50 Mg Tab PO 50 mg QHS CESAR Administration Nutrition/Malnutrition Assess - Dietary Evaluation Nutrition/Malnutrition Findings: Nutrition Notes Start: 06/15/21 11:34 Freq: Status: Active Protocol: Document 06/15/21 11:34 KARINA (Rec: 06/15/21 11:51 KARINA [id number]) Nutrition Notes Need for Assessment generated from: MD Order,Education Initial or Follow up Assessment Current Diagnosis Hypertension,Respiratory Failure,Hyperlipidemia Other Pertinent Diagnosis CHF, HFrEF, Atrial Fibrilation , Bilateral LE Swelling. Current Diet Cardiac/Consistent Carbohydrates Diet (since B ). Labs/Tests 06/15: Glu 131. Pertinent Medications 06/15: Nutritionally unremarkable. Height 5 ft 6 in Weight 158.8 kg [place] Body Weight (kg) 64.54 BMI 56.5 Intake Prior to Admission Good Weight change and time frame Pt denies having loss body weight [employer]. Weight Status Morbidly Obese Subjective/Other Information RD consult for nutrition education. No reports on Pt's PO intake of meals at the time, will assess at F/U. Pt on Room Air, O2 saturation @ 90%, according to Physical Assessment History notes. Pt still in critical condition , not a candidate for Nutrition Education at the time, will assess feasibility on F/U. Percent of energy/protein needs met: Prescribed Cardiac/Consistent Carbohydrates Diet provides for energy/protein needs (1, 977 Kcal/86 g) during LOS. Burn Absent Trauma Absent GI Symptoms None Food Allergy No Skin Integrity/Comment Assessment WNL. Minimum of two criteria No #1 Nutrition Diagnosis No nutrition diagnosis at this time Comments: Will assess Pt's PO intake of meals at F/U. Will assess feasibility for nutrition education at F/U. Is patient on ventilator? No Is Patient Ambulatory and/or Out of Bed Yes REE-([facility]-ambulatory/OOB) [ 3068.975 NUTR.MSJOOB] Kcal/Kg value to use for calculation 10 Approximate Energy Requirements Using 1588 kcal/Kg Calculation Used for Recommendations Kcal/kg Additional Notes Protein: 0.8-1 g/Kg AdjBW; 90- 112 g/day. Fluids: 1 ml/Kcal, or as per MD. Nutrition Intervention Change Diet Order: Continue Cardiac/Consistent Carbohydrates Diet. Follow-Up By: 06/22/21 Additional Comments Nutrition education will be provided on F/U, if feasible. Continue monitoring food tolerance, %PO intake of meals , and BM.
[2021-06-16] MEDS: ENOXAPARIN 40 MG/0.4 ML INJ SUB-Q SCH (11:56)
[2021-06-16] MEDS: SPIRONOLACTONE 50 MG TAB PO SCH (11:56)
[2021-06-16] MEDS: FAMOTIDINE 20 MG TAB PO SCH ×2 (11:56→21:31)
[2021-06-16] MEDS: ASPIRIN EC 81 MG TAB PO SCH (11:56)
[2021-06-16] MEDS: carvediloL 12.5 MG TAB PO SCH ×2 (11:56→21:31)
--- NOTE | 2021-06-16 13:35 | Progress Note ---
Assessment and Plan This is a 55-year-old -[place] male, known to our practice (follows with Dr. Rodriguez), with past medical history of morbid obesity, HFpEF (EF 50 to 55%), hypertension, sleep apnea, and nonischemic dilated cardiomyopathy (last [facility] 10/2019) who presented to [facility] in acute HFrEF. Assessment Acute on chronic HFpEF Nonischemic dilated cardiomyopathy Acute respiratory failure Dyspnea Morbid obesity Venous insufficiency Sleep apnea Hypertension Hyperlipidemia Cardiographics: EKG: Sinus tach; no acute ischemic change CXR: 06/14/21: No acute findings [facility] 10/2019 @ H: Patent coronaries Echo- Pending Recommendations/plan: Patient having borderline hypotension overnight and minor increase in creatinine. Decrease lisinopril to 10 mg p.o. daily We will continue IV diuresis for now. Continues to have good urine output. On 2.5 L o2. Recommend nightly CPAP usage Noted to have short burst of SVT overnight. May need to increase beta-trung tomorrow if there is recurrence and blood pressure could tolerate We were notified that patient had 2 runs of nonsustained V. tach. On telemetry. We will initiate amiodarone 200 mg p.o. twice daily. GDMT: Continue carvedilol 12.5 mg p.o. twice daily, Lasix 40 mg IV twice daily, lisinopril 10 mg p.o. daily, spironolactone 50 mg p.o. daily., Lipitor 40 mg PO nightly Strict I&O/daily weights Closely monitor renal function, fluid status, and electrolytes. BMP in a.m. Education provided to patient regarding heart failure diet, fluid restrictions, weight loss and exercise. Patient seen in conjunction with Dr. Marmolejo who agrees with the assessment and management of this patient. - Patient Problems (1) Acute heart failure with preserved ejection fraction (HFpEF) Current Visit: Yes Status: Acute (2) Acute on chronic heart failure with preserved ejection fraction (HFpEF) Current Visit: Yes Status: Acute (3) Acute respiratory failure with hypoxia Current Visit: Yes Status: Acute (4) Dependent edema Current Visit: Yes Status: Acute (5) Dyspnea Current Visit: Yes Status: Acute Qualifiers: Dyspnea type: dyspnea on exertion Qualified Code(s): R06.00 - Dyspnea, unspecified (6) Hyperlipidemia Current Visit: Yes Status: Chronic Qualifiers: Hyperlipidemia type: mixed hyperlipidemia Qualified Code(s): E78.2 - Mixed hyperlipidemia (7) Hypertension Current Visit: Yes Status: Chronic Qualifiers: Hypertension type: primary hypertension Qualified Code(s): I10 - Essential (primary) hypertension (8) Morbid obesity with BMI of 50.0-59.9, adult Current Visit: Yes Status: Chronic (9) Cardiomyopathy Current Visit: No Status: Chronic (10) Sleep apnea Current Visit: Yes Status: Chronic Subjective Date of service: 06/16/21 Principal diagnosis: HFrEF Interval history: Patient seen sitting in bed this morning. No apparent distress. States that he is not feeling better, not feeling worse. Continues to have good urine output. Intake & Output 06/15/21 06/16/21 06/16/21 23:59 07:59 15:59 Intake Total 840 470 Output Total 500 Balance 840 -30 Objective Vital Signs Temp Pulse Resp BP Pulse Ox 06/16/21 12:12 84 06/16/21 11:47 98.0 F 97 H 18 130/74 91 06/16/21 10:00 87 06/16/21 08:03 98 06/16/21 06:13 17 93 06/16/21 04:00 94 H 06/16/21 03:40 98.9 F 94 H 20 101/61 88 06/16/21 00:48 98.0 F 90 18 89/53 88 06/15/21 21:43 93 06/15/21 21:29 98 H 118/67 06/15/21 21:24 98.8 F 98 H 20 113/67 94 06/15/21 21:05 96 06/15/21 20:00 96 H 06/15/21 17:45 98.3 F 109 H 19 145/89 90 - Physical Examination General: Appears Well, No Apparent Distress HEENT: Positive: Normocephaly, Mucus Membranes Moist Neck: Positive: trachea midline Cardiac: Positive: Reg Rate and Rhythm, S1/S2 Neuro: Positive: Grossly Intact Abdomen: Positive: Unremarkable, Soft, Active Bowel Sounds Skin: Positive: Moist. Negative: Rash Extremities: Present: upper extr. pulses (1+), +2 Edema, Cool (Slightly cool bilateral lower extremity around ankles) - Labs and Meds CBC 06/16/21 Range/Units 04:41 WBC 8.6 (4.5-11.0) K/mm3 RBC 5.09 H (3.65-5.03) M/mm3 Hgb 14.4 (11.8-15.2) gm/dl Hct 45.8 H (35.5-45.6) % Plt Count 223 (140-440) K/mm3 Lymph # (Auto) 0.9 L (1.2-5.4) K/mm3 [place] # (Auto) 1.0 H (0.0-0.8) K/mm3 Eos # (Auto) 0.2 (0.0-0.4) K/mm3 Baso # (Auto) 0.1 (0.0-0.1) K/mm3 Comprehensive Metabolic Panel 06/16/21 Range/Units 04:41 Sodium 138 (137-145) mmol/L Potassium 4.1 (3.6-5.0) mmol/L Chloride 96.3 L (98-107) mmol/L Carbon Dioxide 27 (22-30) mmol/L BUN 19 (9-20) mg/dL Creatinine 1.4 H (0.8-1.3) mg/dL Glucose 133 H (75-100) mg/dL Calcium 9.0 (8.4-10.2) mg/dL - Imaging and Cardiology EKG: pending Echo: pending - EKG Sinus rhythms and dysrhythmias: sinus tachycardia - Allied health notes Allied health notes reviewed: nursing
[2021-06-16] MEDS: LISINOPRIL 5 MG TAB PO SCH (17:18)
[2021-06-16] MEDS: AMIODARONE 200 MG TAB PO SCH (17:18)
[2021-06-16] MEDS: traZODone 50 MG TAB PO SCH (21:31)
[2021-06-17] MEDS: AMIODARONE 200 MG TAB PO SCH ×3 (00:17→22:10)
[2021-06-17] MEDS: FUROSEMIDE 40 MG/4 ML INJ IV SCH (05:19)
[2021-06-17 05:50] LABS: BUN/Creatinine Ratio 16; Blood Urea Nitrogen 21 mg/dL (9-20); Hemolysis Index 28
[2021-06-17] MEDS: ENOXAPARIN 40 MG/0.4 ML INJ SUB-Q SCH (10:31)
[2021-06-17] MEDS: FAMOTIDINE 20 MG TAB PO SCH ×2 (10:32→22:10)
[2021-06-17] MEDS: LISINOPRIL 5 MG TAB PO SCH (10:32)
[2021-06-17] MEDS: carvediloL 12.5 MG TAB PO SCH ×2 (10:32→22:10)
[2021-06-17] MEDS: SPIRONOLACTONE 50 MG TAB PO SCH (10:32)
[2021-06-17] MEDS: ASPIRIN EC 81 MG TAB PO SCH (10:33)
--- NOTE | 2021-06-17 11:19 | Progress Note ---
Assessment and Plan Assessment and plan: #Acute on chronic systolic heart failure -TTE 06/16: LVEF 20-25%, severely dilated left ventricle -Troponins negative. CTA chest unremarkable for PE. -Continue CHF exacerbation protocol: Telemetry, Strict I/O, monitor urine output every shift, daily weights, afterload reduction, low-sodium diet, and fluid restriction of approximately 1.5 mL/day. Continue IV Lasix 40 mg twice daily, spironolactone 50 mg daily, lisinopril 20 mg daily, Coreg 12.5 mg twice daily -Supplemental oxygen: none, weaned to room air -ProBNP on admission: 669 -Cardiology following, assistance appreciated #Acute hypoxic respiratory failure #Likely obesity hypoventilation syndrome -etiology: Likely secondary to obesity hypoventilation syndrome in addition to acute heart failure -supplemental oxygen at discharge -Continue protocol: continue pulse oximetry, wean oxygen as tolerated, ordered incentive spirometry and educated patient on how to use it and its importance. -Patient will benefit from nightly CPAP. Patient should have sleep study performed in outpatient setting. #Hypertension #Hyperlipidemia -continue current medications: Coreg 12.5 mg twice daily, lisinopril 10 mg daily -SBP goal <160 and DBP goal <90 while inpatient -continue to monitor #Chronic atrial fibrillation Currently in sinus rhythm. Continue home Eliquis 5 mg every 12 hours #Acute Kidney Injury-improving -likely secondary to diuresis and ACEi -lisinopril dose decreased to 10mg qday -will continue to monitor -will avoid nephrotoxic agents, renally dose medications #Morbid obesity #Weight loss counseling #Exercise counseling - BMI 56.5 - Counseled patient on the importance of weight loss, incorporating exercise, and dietary changes (lean meats, fresh fruits and vegetables, and water intake). Patient expresses understanding. #Advanced care planning -Disease education conducted, care plan discussed, diagnoses discussed, prognosis discussed, and patient acknowledges understanding with care plan -Time: +30 min #Discharge planning - Patient is pending further Cardiology recommendations - Case management has been made aware. - Discharge is tentatively based on improvement of respiratory symptoms and heart failure History Interval history: No acute events overnight. Patient currently on supplemental O2 due to significant shortness of breath with ambulation. Denies chest pain or palpitations. No complaints at this time. Hospitalist Physical - Physical exam Narrative exam: GENERAL: Obese male. In no acute distress. HEENT: Supplemental O2 at 2 L/min CHEST/LUNGS: Coarse breath sounds bilaterally. HEART/CARDIOVASCULAR: RRR. No murmur, rubs or gallops appreciated. ABDOMEN: +BS. NT/ND. SKIN: No rashes noted. NEURO: No focal motor deficit. Follows all commands and is ambulatory. EXTREMITIES: Venous stasis changes in bilateral lower extremity. 1+ edema. PSYCH: Cooperative. - Constitutional Vitals: Temp Pulse Resp BP Pulse Ox 98.1 F 92 H 19 119/50 95 06/17/21 08:09 06/17/21 08:09 06/17/21 08:09 06/17/21 08:09 06/17/21 08:09 General appearance: Present: no acute distress HEART Score - HEART Score Age: 45-65 Risk factors: > 3 risk factors or hx of atherosclerotic disease Troponin: Troponin T < 0.010 ng/mL (0.00-0.029) 06/14/21 12:08 Troponin: 1-3x normal limit - Critical Actions Critical Actions: 4-6 pts:12-16.6% risk of adverse cardiac event. Should be admitted Results - Labs CBC & Chem 7: 06/16/21 04:41 06/17/21 05:14 Labs: Laboratory Last Values WBC 8.6 K/mm3 (4.5-11.0) 06/16/21 04:41 RBC 5.09 M/mm3 (3.65-5.03) H 06/16/21 04:41 Hgb 14.4 gm/dl (11.8-15.2) 06/16/21 04:41 Hct 45.8 % (35.5-45.6) H 06/16/21 04:41 MCV 90 fl (84-94) 06/16/21 04:41 MCH 28 pg (28-32) 06/16/21 04:41 MCHC 31 % (32-34) L 06/16/21 04:41 RDW 16.7 % (13.2-15.2) H 06/16/21 04:41 Plt Count 223 K/mm3 (140-440) 06/16/21 04:41 Lymph % (Auto) 10.4 % (13.4-35.0) L 06/16/21 04:41 [place] % (Auto) 11.2 % (0.0-7.3) H 06/16/21 04:41 Eos % (Auto) 2.0 % (0.0-4.3) 06/16/21 04:41 Baso % (Auto) 0.8 % (0.0-1.8) 06/16/21 04:41 Lymph # (Auto) 0.9 K/mm3 (1.2-5.4) L 06/16/21 04:41 [place] # (Auto) 1.0 K/mm3 (0.0-0.8) H 06/16/21 04:41 Eos # (Auto) 0.2 K/mm3 (0.0-0.4) 06/16/21 04:41 Baso # (Auto) 0.1 K/mm3 (0.0-0.1) 06/16/21 04:41 Seg Neutrophils % 75.6 % (40.0-70.0) H 06/16/21 04:41 Seg Neutrophils # 6.5 K/mm3 (1.8-7.7) 06/16/21 04:41 Sodium 140 mmol/L (137-145) 06/17/21 05:14 Potassium 4.4 mmol/L (3.6-5.0) 06/17/21 05:14 Chloride 100.2 mmol/L (98-107) 06/17/21 05:14 Carbon Dioxide 29 mmol/L (22-30) 06/17/21 05:14 Anion Gap 15 mmol/L 06/17/21 05:14 BUN 21 mg/dL (9-20) H 06/17/21 05:14 Creatinine 1.3 mg/dL (0.8-1.3) 06/17/21 05:14 Estimated GFR > 60 ml/min 06/17/21 05:14 BUN/Creatinine Ratio 16 % 06/17/21 05:14 Glucose 126 mg/dL (75-100) H 06/17/21 05:14 Lactic Acid 1.00 mmol/L (0.7-2.0) 06/14/21 15:06 Calcium 9.0 mg/dL (8.4-10.2) 06/17/21 05:14 Phosphorus 4.30 mg/dL (2.5-4.5) 06/17/21 05:14 Magnesium 2.40 mg/dL (1.7-2.3) H 06/17/21 05:14 Total Bilirubin 0.40 mg/dL (0.1-1.2) 06/14/21 12:08 AST 17 units/L (5-40) 06/14/21 12:08 ALT 29 units/L (7-56) 06/14/21 12:08 Alkaline Phosphatase 79 units/L (35-129) 06/14/21 12:08 Troponin T < 0.010 ng/mL (0.00-0.029) 06/14/21 12:08 NT-Pro-B Natriuret Pep 669.3 pg/mL (0-900) 06/14/21 12:08 Total Protein 7.1 g/dL (6.3-8.2) 06/14/21 12:08 Albumin 3.8 g/dL (3.9-5) L 06/14/21 12:08 Albumin/Globulin Ratio 1.2 % 06/14/21 12:08 Procalcitonin 0.07 ng/mL (<0.15) 06/15/21 08:37 Coronavirus (PCR) Negative (Negative) 06/15/21 Unknown Microbiology: Microbiology 06/14/21 12:08 Peripheral/Venous Blood Culture - Preliminary NO GROWTH AFTER 48 HOURS 06/14/21 12:08 Peripheral/Venous Blood Culture - Preliminary NO GROWTH AFTER 48 HOURS Garcia/IV: Voiding Method Urinal Active Medications - Current Medications Current Medications: Generic Name Dose Route Start Last Admin Trade Name Freq PRN Reason Stop Dose Admin Acetaminophen 650 mg 06/14/21 17:37 Acetaminophen 325 Mg Tab PO Q4H PRN Pain MILD(1-3)/Fever >100.5/NEGRON Albuterol 2.5 mg 06/14/21 18:29 Albuterol 2.5 Mg/3 Ml Nebu IH Q3HRT PRN Shortness Of Breath Amiodarone HCl 200 mg 06/16/21 16:30 06/17/21 10:32 Amiodarone 200 Mg Tab PO 200 mg BID CESAR Administration Aspirin 81 mg 06/14/21 18:00 06/17/21 10:33 Aspirin Ec 81 Mg Tab PO 81 mg QDAY CESAR Administration Atorvastatin Calcium 40 mg 06/14/21 22:00 06/16/21 21:31 Atorvastatin 40 Mg Tab PO 40 mg QHS CESAR Administration Carvedilol 12.5 mg 06/14/21 22:00 06/17/21 10:32 Carvedilol 12.5 Mg Tab PO 12.5 mg BID CESAR Administration Enoxaparin Sodium 40 mg 06/14/21 16:00 06/17/21 10:31 Enoxaparin 40 Mg/0.4 Ml Inj SUB-Q 40 mg QDAY CESAR Administration Famotidine 20 mg 06/14/21 22:00 06/17/21 10:32 Famotidine 20 Mg Tab PO 20 mg BID CESAR Administration Furosemide 40 mg 06/14/21 18:00 06/17/21 05:19 Furosemide 40 Mg/4 Ml Inj IV 40 mg 0600,1800 CESAR Administration Guaifenesin 200 mg 06/14/21 21:05 06/15/21 12:11 Guaifenesin 200 Mg Tab PO 200 mg Q6H PRN Administration Cough Lisinopril 10 mg 06/16/21 13:00 06/17/21 10:32 Lisinopril 5 Mg Tab PO 10 mg QDAY CESAR Administration Metoclopramide HCl 10 mg 06/14/21 17:37 Metoclopramide 10 Mg/2 Ml Inj IV Q6H PRN Nausea And Vomiting Morphine Sulfate 2 mg 06/14/21 15:33 Morphine 2 Mg/1 Ml Inj IV Q4H PRN Pain, Moderate (4-6) Ondansetron HCl 4 mg 06/14/21 17:37 Ondansetron 4 Mg/2 Ml Inj IV Q3H PRN Nausea And Vomiting Sodium Chloride 10 ml 06/14/21 22:00 06/17/21 10:33 Sodium Chloride 0.9% 10 Ml Flush Syringe IV 10 ml BID CESAR Administration Sodium Chloride 10 ml 06/14/21 17:37 Sodium Chloride 0.9% 10 Ml Flush Syringe IV PRN PRN LINE FLUSH Spironolactone 50 mg 06/14/21 18:00 06/17/21 10:32 Spironolactone 50 Mg Tab PO 50 mg QDAY CESRA Administration Trazodone HCl 50 mg 06/14/21 22:00 06/16/21 21:31 Trazodone 50 Mg Tab PO 50 mg QHS CESAR Administration Nutrition/Malnutrition Assess - Dietary Evaluation Nutrition/Malnutrition Findings: Nutrition Notes Start: 06/15/21 11:34 Freq: Status: Active Protocol: Document 06/15/21 11:34 KARINA (Rec: 06/15/21 11:51 KARINA [email or web address]) Nutrition Notes Need for Assessment generated from: MD Order,Education Initial or Follow up Assessment Current Diagnosis Hypertension,Respiratory Failure,Hyperlipidemia Other Pertinent Diagnosis CHF, HFrEF, Atrial Fibrilation , Bilateral LE Swelling. Current Diet Cardiac/Consistent Carbohydrates Diet (since B ). Labs/Tests 06/15: Glu 131. Pertinent Medications 06/15: Nutritionally unremarkable. Height 5 ft 6 in Weight 158.8 kg Venus Body Weight (kg) 64.54 BMI 56.5 Intake Prior to Admission Good Weight change and time frame Pt denies having loss body weight [employer]. Weight Status Morbidly Obese Subjective/Other Information RD consult for nutrition education. No reports on Pt's PO intake of meals at the time, will assess at F/U. Pt on Room Air, O2 saturation @ 90%, according to Physical Assessment History notes. Pt still in critical condition , not a candidate for Nutrition Education at the time, will assess feasibility on F/U. Percent of energy/protein needs met: Prescribed Cardiac/Consistent Carbohydrates Diet provides for energy/protein needs (1, 977 Kcal/86 g) during LOS. Burn Absent Trauma Absent GI Symptoms None Food Allergy No Skin Integrity/Comment Assessment WNL. Minimum of two criteria No #1 Nutrition Diagnosis No nutrition diagnosis at this time Comments: Will assess Pt's PO intake of meals at F/U. Will assess feasibility for nutrition education at F/U. Is patient on ventilator? No Is Patient Ambulatory and/or Out of Bed Yes REE-([facility]-ambulatory/OOB) [ 3068.975 [id number]] Kcal/Kg value to use for calculation 10 Approximate Energy Requirements Using 1588 kcal/Kg Calculation Used for Recommendations Kcal/kg Additional Notes Protein: 0.8-1 g/Kg AdjBW; 90- 112 g/day. Fluids: 1 ml/Kcal, or as per MD. Nutrition Intervention Change Diet Order: Continue Cardiac/Consistent Carbohydrates Diet. Follow-Up By: 06/22/21 Additional Comments Nutrition education will be provided on F/U, if feasible. Continue monitoring food tolerance, %PO intake of meals , and BM.
--- NOTE | 2021-06-17 15:56 | Progress Note ---
Assessment and Plan This is a 55-year-old -[place] male, known to our practice (follows with Dr. Rodriguez), with past medical history of morbid obesity, HFpEF (EF 50 to 55%), hypertension, sleep apnea, and nonischemic dilated cardiomyopathy (last [facility] 10/2019) who presented to [facility] in acute HFrEF. Assessment Acute on chronic HFpEF Nonischemic dilated cardiomyopathy Acute respiratory failure Dyspnea Morbid obesity Venous insufficiency Sleep apnea Hypertension Hyperlipidemia Cardiographics: EKG: Sinus tach; no acute ischemic change CXR: 06/14/21: No acute findings [facility] 10/2019 @ [facility]: Patent coronaries Echocardiogram - 03/2021: Ef 50-55% -06/14/21: Left ventricle: Left ventricle is moderately dilated. Left ventricle systolic function is severely decreased. There is normal left ventricular wall thickness. There is severe global hypokinesis of the left ventricle. Transmitral Doppler flow pattern suggest impaired LV relaxation. LVEF is 20 to 25%. Pericardium: There is no pericardial effusion Recommendations/plan: Patient with significantly decreased ejection fraction from 03/2021. Will need ischemic evaluation. Plan for cardiac catheterization in the morning. Consent obtained. All questions answered and addressed. Swelling and shortness of breath improving. DC evening dose of Lasix in the setting of creatinine of 1.3, in preparation for heart cath in a.m. May restart tomorrow if needed. Precath lab orders placed. Continue lisinopril to 10 mg p.o. daily Continue nightly CPAP usage Continue amiodarone 200 mg p.o. twice daily. 3 beat of NSVT overnight GDMT: Continue carvedilol 12.5 mg p.o. twice daily, lisinopril 10 mg p.o. daily, spironolactone 50 mg p.o. daily., Lipitor 40 mg PO nightly Strict I&O/daily weights Closely monitor renal function, fluid status, and electrolytes. BMP in a.m. Education provided to patient regarding heart failure diet, fluid restrictions, weight loss and exercise. Patient seen in conjunction with Dr. Marmolejo who agrees with the assessment and management of this patient. - Patient Problems (1) Acute heart failure with preserved ejection fraction (HFpEF) Current Visit: Yes Status: Acute (2) Acute on chronic heart failure with preserved ejection fraction (HFpEF) Current Visit: Yes Status: Acute (3) Acute respiratory failure with hypoxia Current Visit: Yes Status: Acute (4) Dependent edema Current Visit: Yes Status: Acute (5) Dyspnea Current Visit: Yes Status: Acute Qualifiers: Dyspnea type: dyspnea on exertion Qualified Code(s): R06.00 - Dyspnea, unspecified (6) Hyperlipidemia Current Visit: Yes Status: Chronic Qualifiers: Hyperlipidemia type: mixed hyperlipidemia Qualified Code(s): E78.2 - Mixed hyperlipidemia (7) Hypertension Current Visit: Yes Status: Chronic Qualifiers: Hypertension type: primary hypertension Qualified Code(s): I10 - Essential (primary) hypertension (8) Morbid obesity with BMI of 50.0-59.9, adult Current Visit: Yes Status: Chronic (9) Cardiomyopathy Current Visit: No Status: Chronic (10) Sleep apnea Current Visit: Yes Status: Chronic Subjective Date of service: 06/17/21 Principal diagnosis: HFrEF Interval history: Patient seen sitting in chair morning. No apparent distress. States he is feeling slightly better this morning. Continues to have good urine output. Telemetry: Sinus rhythm 90s. Noted to have sinus tach as well as a 3 beat run of VT overnight Intake & Output 06/16/21 06/17/21 06/17/21 23:59 07:59 15:59 Intake Total 240 0 Output Total 600 0 Balance -360 0 Objective Vital Signs Temp Pulse Resp BP BP Pulse Ox 06/17/21 12:21 98.7 F 91 H 18 100/66 95 06/17/21 10:00 93 06/17/21 08:09 98.1 F 92 H 19 119/50 95 06/17/21 07:32 95 06/17/21 04:14 98.2 F 88 20 108/67 85 06/17/21 02:20 73 06/17/21 00:16 98.0 F 96 H 18 116/76 92 06/16/21 22:35 97 H 06/16/21 21:52 96 06/16/21 21:31 96 H 116/72 06/16/21 20:53 96 06/16/21 20:00 91 H 06/16/21 19:57 98.2 F 96 H 20 116/72 94 06/16/21 17:18 91 H 109/72 06/16/21 17:17 91 H 109/72 95 - Physical Examination General: Appears Well, No Apparent Distress HEENT: Positive: Normocephaly, Mucus Membranes Moist Neck: Positive: trachea midline Cardiac: Positive: Reg Rate and Rhythm, S1/S2 Lungs: Positive: Decreased Breath Sounds Neuro: Positive: Grossly Intact Abdomen: Positive: Unremarkable, Soft, Active Bowel Sounds Skin: Positive: Moist. Negative: Rash Extremities: Present: upper extr. pulses (1+), +1 Edema (Edema improving), Cool (Slightly cool bilateral lower extremity around ankles) - Labs and Meds Comprehensive Metabolic Panel 06/17/21 Range/Units 05:14 Sodium 140 (137-145) mmol/L Potassium 4.4 (3.6-5.0) mmol/L Chloride 100.2 (98-107) mmol/L Carbon Dioxide 29 (22-30) mmol/L BUN 21 H (9-20) mg/dL Creatinine 1.3 (0.8-1.3) mg/dL Glucose 126 H (75-100) mg/dL Calcium 9.0 (8.4-10.2) mg/dL - Imaging and Cardiology EKG: pending, image reviewed Echo: report reviewed (EF 20 to 25%) - Telemetry EKG Rhythm: Sinus Rhythm - EKG Sinus rhythms and dysrhythmias: sinus tachycardia - Allied health notes Allied health notes reviewed: nursing
[2021-06-17] MEDS ORDERED: SODIUM CHLORIDE 0.9% 500 ML 500 ML IV SCH (20:00)
[2021-06-17] MEDS: traZODone 50 MG TAB PO SCH (22:10)
[2021-06-18 04:36] LABS: Basophils # (Auto) 0.1 K/mm3 (0.0-0.1); Basophils % (Auto) 1.1 % (0.0-1.8); Eosinophils # (Auto) 0.2 K/mm3 (0.0-0.4); Eosinophils % (Auto) 2.2 % (0.0-4.3); Lymphocytes % (Auto) 11.5 % (13.4-35.0); Mean Corpuscular HGB Conc 31 % (32-34); Mean Corpuscular Volume 91 fl (84-94); Monocytes # (Auto) 1.1 K/mm3 (0.0-0.8); Platelet Count 235 K/mm3 (140-440); Red Blood Count 5.31 M/mm3 (3.65-5.03); Red Cell Distribution Width 16.2 % (13.2-15.2)
[2021-06-18 04:49] LABS: Hematocrit 48.2 % (35.5-45.6); Hemoglobin 14.9 gm/dl (11.8-15.2)
[2021-06-18 04:53] LABS: BUN/Creatinine Ratio 17; Blood Urea Nitrogen 20 mg/dL (9-20); Calcium 8.6 mg/dL (8.4-10.2); Hemolysis Index 6
[2021-06-18 04:54] LABS: INR 0.97 (0.87-1.13)
[2021-06-18 04:55] LABS: Partial Thromboplastin Time 29.1 Sec. (24.2-36.6)
--- NOTE | 2021-06-18 07:18 | Progress Note ---
Assessment and Plan Assessment and plan: #Acute on chronic systolic heart failure #nonischemic cardiomyopathy -TTE 06/16: LVEF 20-25%, severely dilated left ventricle -L heart cath 06/18 official report pending -Troponins negative. CTA chest unremarkable for PE. -Continue CHF exacerbation protocol: Telemetry, Strict I/O, monitor urine output every shift, daily weights, afterload reduction, low-sodium diet, and fluid restriction of approximately 1.5 mL/day. Continue IV Lasix 40 mg twice daily, spironolactone 50 mg daily, lisinopril 20 mg daily, Coreg 12.5 mg twice daily -Supplemental oxygen: 2L -ProBNP on admission: 669 -patient consented to livevest -Cardiology following, assistance appreciated #Nonsustained ventricular tachycardia -continue amiodarone 200mg BID #Acute hypoxic respiratory failure #Likely obesity hypoventilation syndrome -etiology: Likely secondary to obesity hypoventilation syndrome in addition to acute heart failure -supplemental oxygen at discharge -Continue protocol: continue pulse oximetry, wean oxygen as tolerated, ordered incentive spirometry and educated patient on how to use it and its importance. -Patient will benefit from nightly CPAP. Patient should have sleep study performed in outpatient setting. #Hypertension #Hyperlipidemia -continue current medications: Coreg 12.5 mg twice daily, lisinopril 10 mg daily -SBP goal <160 and DBP goal <90 while inpatient -continue to monitor #Chronic atrial fibrillation Currently in sinus rhythm. Continue home Eliquis 5 mg every 12 hours #Acute Kidney Injury-improving -likely secondary to diuresis and ACEi -lisinopril dose decreased to 10mg qday -will continue to monitor -will avoid nephrotoxic agents, renally dose medications #Morbid obesity #Weight loss counseling #Exercise counseling -BMI 56.5 -Counseled patient on the importance of weight loss, incorporating exercise, and dietary changes (lean meats, fresh fruits and vegetables, and water intake). Patient expresses understanding. -patient will need outpatient follow up for weight loss surgery #Advanced care planning -Disease education conducted, care plan discussed, diagnoses discussed, prognosis discussed, and patient acknowledges understanding with care plan -Time: +30 min #Discharge planning - Patient is pending further Cardiology recommendations - Case management has been made aware. - Discharge is tentatively based on improvement of respiratory symptoms and heart failure History Interval history: Patient returned from cath. Currently on 2LNC, no complaints at this time. Hospitalist Physical - Physical exam Narrative exam: GENERAL: Obese male. In no acute distress. HEENT: Supplemental O2 at 2 L/min CHEST/LUNGS: Coarse breath sounds bilaterally. HEART/CARDIOVASCULAR: RRR. No murmur, rubs or gallops appreciated. ABDOMEN: +BS. NT/ND. SKIN: No rashes noted. NEURO: No focal motor deficit. Follows all commands and is ambulatory. EXTREMITIES: Venous stasis changes in bilateral lower extremity. 1+ edema. PSYCH: Cooperative. - Constitutional Vitals: Temp Pulse Resp BP Pulse Ox 98.3 F 82 20 111/64 90 06/18/21 03:35 06/18/21 03:35 06/18/21 03:35 06/18/21 03:35 06/18/21 03:35 General appearance: Present: no acute distress HEART Score - HEART Score Age: 45-65 Risk factors: > 3 risk factors or hx of atherosclerotic disease Troponin: Troponin T < 0.010 ng/mL (0.00-0.029) 06/14/21 12:08 Troponin: 1-3x normal limit - Critical Actions Critical Actions: 4-6 pts:12-16.6% risk of adverse cardiac event. Should be admitted Results - Labs CBC & Chem 7: 06/18/21 04:00 06/18/21 04:00 Labs: Laboratory Last Values WBC 9.0 K/mm3 (4.5-11.0) 06/18/21 04:00 RBC 5.31 M/mm3 (3.65-5.03) H 06/18/21 04:00 Hgb 14.9 gm/dl (11.8-15.2) 06/18/21 04:00 Hct 48.2 % (35.5-45.6) H 06/18/21 04:00 MCV 91 fl (84-94) 06/18/21 04:00 MCH 28 pg (28-32) 06/18/21 04:00 MCHC 31 % (32-34) L 06/18/21 04:00 RDW 16.2 % (13.2-15.2) H 06/18/21 04:00 Plt Count 235 K/mm3 (140-440) 06/18/21 04:00 Lymph % (Auto) 11.5 % (13.4-35.0) L 06/18/21 04:00 [place] % (Auto) 12.0 % (0.0-7.3) H 06/18/21 04:00 Eos % (Auto) 2.2 % (0.0-4.3) 06/18/21 04:00 Baso % (Auto) 1.1 % (0.0-1.8) 06/18/21 04:00 Lymph # (Auto) 1.0 K/mm3 (1.2-5.4) L 06/18/21 04:00 [place] # (Auto) 1.1 K/mm3 (0.0-0.8) H 06/18/21 04:00 Eos # (Auto) 0.2 K/mm3 (0.0-0.4) 06/18/21 04:00 Baso # (Auto) 0.1 K/mm3 (0.0-0.1) 06/18/21 04:00 Seg Neutrophils % 73.2 % (40.0-70.0) H 06/18/21 04:00 Seg Neutrophils # 6.6 K/mm3 (1.8-7.7) 06/18/21 04:00 PT 14.0 Sec. (12.2-14.9) 06/18/21 04:00 INR 0.97 (0.87-1.13) 06/18/21 04:00 APTT 29.1 Sec. (24.2-36.6) 06/18/21 04:00 Sodium 138 mmol/L (137-145) 06/18/21 04:00 Potassium 4.3 mmol/L (3.6-5.0) 06/18/21 04:00 Chloride 98.4 mmol/L (98-107) 06/18/21 04:00 Carbon Dioxide 28 mmol/L (22-30) 06/18/21 04:00 Anion Gap 16 mmol/L 06/18/21 04:00 BUN 20 mg/dL (9-20) 06/18/21 04:00 Creatinine 1.2 mg/dL (0.8-1.3) 06/18/21 04:00 Estimated GFR > 60 ml/min 06/18/21 04:00 BUN/Creatinine Ratio 17 % 06/18/21 04:00 Glucose 122 mg/dL (75-100) H 06/18/21 04:00 Lactic Acid 1.00 mmol/L (0.7-2.0) 06/14/21 15:06 Calcium 8.6 mg/dL (8.4-10.2) 06/18/21 04:00 Phosphorus 4.30 mg/dL (2.5-4.5) 06/17/21 05:14 Magnesium 2.40 mg/dL (1.7-2.3) H 06/17/21 05:14 Total Bilirubin 0.40 mg/dL (0.1-1.2) 06/14/21 12:08 AST 17 units/L (5-40) 06/14/21 12:08 ALT 29 units/L (7-56) 06/14/21 12:08 Alkaline Phosphatase 79 units/L (35-129) 06/14/21 12:08 Troponin T < 0.010 ng/mL (0.00-0.029) 06/14/21 12:08 NT-Pro-B Natriuret Pep 669.3 pg/mL (0-900) 06/14/21 12:08 Total Protein 7.1 g/dL (6.3-8.2) 06/14/21 12:08 Albumin 3.8 g/dL (3.9-5) L 06/14/21 12:08 Albumin/Globulin Ratio 1.2 % 06/14/21 12:08 Procalcitonin 0.07 ng/mL (<0.15) 06/15/21 08:37 Coronavirus (PCR) Negative (Negative) 06/15/21 Unknown Blood Type A POSITIVE 06/18/21 04:00 Antibody Screen Negative 06/18/21 04:00 Microbiology: Microbiology 06/14/21 12:08 Peripheral/Venous Blood Culture - Preliminary NO GROWTH AFTER 72 HOURS 06/14/21 12:08 Peripheral/Venous Blood Culture - Preliminary NO GROWTH AFTER 72 HOURS Garcia/IV: Voiding Method Urinal Active Medications - Current Medications Current Medications: Generic Name Dose Route Start Last Admin Trade Name Freq PRN Reason Stop Dose Admin Acetaminophen 650 mg 06/14/21 17:37 Acetaminophen 325 Mg Tab PO Q4H PRN Pain MILD(1-3)/Fever >100.5/NEGRON Albuterol 2.5 mg 06/14/21 18:29 Albuterol 2.5 Mg/3 Ml Nebu Q3HRT PRN Shortness Of Breath Amiodarone HCl 200 mg 06/16/21 16:30 06/17/21 22:10 Amiodarone 200 Mg Tab PO 200 mg BID CESAR Administration Aspirin 81 mg 06/14/21 18:00 06/17/21 10:33 Aspirin Ec 81 Mg Tab PO 81 mg QDAY CESAR Administration Atorvastatin Calcium 40 mg 06/14/21 22:00 06/17/21 22:10 Atorvastatin 40 Mg Tab PO 40 mg QHS CESAR Administration Carvedilol 12.5 mg 06/14/21 22:00 06/17/21 22:10 Carvedilol 12.5 Mg Tab PO 12.5 mg BID CESAR Administration Enoxaparin Sodium 40 mg 06/14/21 16:00 06/17/21 10:31 Enoxaparin 40 Mg/0.4 Ml Inj SUB-Q 40 mg QDAY CESAR Administration Famotidine 20 mg 06/14/21 22:00 06/17/21 22:10 Famotidine 20 Mg Tab PO 20 mg BID CESAR Administration Guaifenesin 200 mg 06/14/21 21:05 06/15/21 12:11 Guaifenesin 200 Mg Tab PO 200 mg Q6H PRN Administration Cough Lisinopril 10 mg 06/16/21 13:00 06/17/21 10:32 Lisinopril 5 Mg Tab PO 10 mg QDAY CESAR Administration Metoclopramide HCl 10 mg 06/14/21 17:37 Metoclopramide 10 Mg/2 Ml Inj IV Q6H PRN Nausea And Vomiting Morphine Sulfate 2 mg 06/14/21 15:33 06/17/21 22:09 Morphine 2 Mg/1 Ml Inj IV 2 mg Q4H PRN Administration Pain, Moderate (4-6) Ondansetron HCl 4 mg 06/14/21 17:37 Ondansetron 4 Mg/2 Ml Inj IV Q3H PRN Nausea And Vomiting Sodium Chloride 10 ml 06/14/21 22:00 06/17/21 22:11 Sodium Chloride 0.9% 10 Ml Flush Syringe IV 10 ml BID CESAR Administration Sodium Chloride 10 ml 06/14/21 17:37 Sodium Chloride 0.9% 10 Ml Flush Syringe IV PRN PRN LINE FLUSH Spironolactone 50 mg 06/14/21 18:00 06/17/21 10:32 Spironolactone 50 Mg Tab PO 50 mg QDAY CESAR Administration Trazodone HCl 50 mg 06/14/21 22:00 06/17/21 22:10 Trazodone 50 Mg Tab PO 50 mg QHS CESAR Administration Nutrition/Malnutrition Assess - Dietary Evaluation Nutrition/Malnutrition Findings: Nutrition Notes Start: 06/15/21 11:34 Freq: Status: Active Protocol: Document 06/15/21 11:34 KARINA (Rec: 06/15/21 11:51 KARINA [id number]) Nutrition Notes Need for Assessment generated from: MD Order,Education Initial or Follow up Assessment Current Diagnosis Hypertension,Respiratory Failure,Hyperlipidemia Other Pertinent Diagnosis CHF, HFrEF, Atrial Fibrilation , Bilateral LE Swelling. Current Diet Cardiac/Consistent Carbohydrates Diet (since B ). Labs/Tests 06/15: Glu 131. Pertinent Medications 06/15: Nutritionally unremarkable. 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 Weight Status Morbidly Obese Subjective/Other Information RD consult for nutrition education. No reports on Pt's PO intake of meals at the time, will assess at F/U. Pt on Room Air, O2 saturation @ 90%, according to Physical Assessment History notes. Pt still in critical condition , not a candidate for Nutrition Education at the time, will assess feasibility on F/U. Percent of energy/protein needs met: Prescribed Cardiac/Consistent Carbohydrates Diet provides for energy/protein needs (1, 977 Kcal/86 g) during LOS. Burn Absent Trauma Absent GI Symptoms None Food Allergy No Skin Integrity/Comment Assessment WNL. Minimum of two criteria No #1 Nutrition Diagnosis No nutrition diagnosis at this time Comments: Will assess Pt's PO intake of meals at F/U. Will assess feasibility for nutrition education at F/U. Is patient on ventilator? No Is Patient Ambulatory and/or Out of Bed Yes REE-(Glynn-St. Jeor-ambulatory/OOB) [ 3068.975 NUTR.MSJOOB] Kcal/Kg value to use for calculation 10 Approximate Energy Requirements Using 1588 kcal/Kg Calculation Used for Recommendations Kcal/kg Additional Notes Protein: 0.8-1 g/Kg AdjBW; 90- 112 g/day. Fluids: 1 ml/Kcal, or as per MD. Nutrition Intervention Change Diet Order: Continue Cardiac/Consistent Carbohydrates Diet. Follow-Up By: 06/22/21 Additional Comments Nutrition education will be provided on F/U, if feasible. Continue monitoring food tolerance, %PO intake of meals , and BM.
[2021-06-18] MEDS ORDERED: ASPIRIN 325 MG TAB ONE (07:20)
[2021-06-18] MEDS ORDERED: SODIUM CHLORIDE 0.9% 500 ML 500 ML ONE (07:20)
[2021-06-18] MEDS ORDERED: HEPARIN/NS 5000 UNIT/500ML 1,000 ML IR ONE (07:29)
[2021-06-18] MEDS: LIDOCAINE (2%) 20 MG/1 ML VIAL 50 ML MDV INFILTRATI ONE ×2 (08:07→08:18)
[2021-06-18] MEDS: NITROGLYCERIN SYRINGE 3 ML ONE ×2 (08:08→08:24)
[2021-06-18] MEDS: VERAPAMIL 5 MG/2 ML INJ ONE ×2 (08:08→08:24)
[2021-06-18] MEDS: HEPARIN 10,000 UNITS/10 ML VIAL ONE ×2 (08:08→08:23)
[2021-06-18] MEDS ORDERED: HYDROcodone/ACETAMINOPHEN 5-325 MG TAB PO PRN (09:30)
[2021-06-18] MEDS ORDERED: traMADol 50 MG TAB PO PRN (10:00)
[2021-06-18] MEDS: ASPIRIN EC 81 MG TAB PO SCH (10:03)
[2021-06-18] MEDS: LISINOPRIL 5 MG TAB PO SCH (10:05)
[2021-06-18] MEDS: carvediloL 12.5 MG TAB PO SCH ×2 (10:06→22:20)
[2021-06-18] MEDS: SPIRONOLACTONE 50 MG TAB PO SCH (10:06)
[2021-06-18] MEDS: FAMOTIDINE 20 MG TAB PO SCH ×2 (10:07→22:09)
[2021-06-18] MEDS: AMIODARONE 200 MG TAB PO SCH ×2 (10:08→22:20)
[2021-06-18] MEDS: ENOXAPARIN 40 MG/0.4 ML INJ SUB-Q SCH (10:14)
--- NOTE | 2021-06-18 10:18 | Cardiac Catherization Report ---
DATE OF PROCEDURE: 06/18/2021 REFERRING PHYSICIAN: Hospitalist service. INDICATIONS FOR PROCEDURE: The patient is a pleasant 55-year-old -[place]omin[place] gentleman who presents with chest pain, shortness of breath, found to have severe cardiomyopathy with some nonsustained VT. He is referred for left heart catheterization to further elucidate etiology of his cardiomyopathy. Risks, benefits and alternatives discussed at length prior to obtaining informed consent. PROCEDURE IN DETAIL: The patient was brought to clinical lab technologist in postabsorptive state, prepped and draped in sterile fashion. Kalpesh's test in right hand is normal. 2 mL of 2% lidocaine used to anesthetize the right wrist. A standard 6-Egyptian hydrophilic sheath used to cannulate the right radial artery via modified Seldinger technique. All exchanges performed to exchange a J-tip guidewire. JL3.5 catheter was used to engage the left main. No dampening or ventricularization. Cineangiography performed in all projections. JR4 catheter used to cross the aortic valve under fluoroscopic guidance. Left ventriculography performed in 30-degree NELSON and 30-degree MAORI projections via hand injections, catheter flushed. Manual pullback performed with continuous pressure monitoring. Catheter was used to engage the right coronary. No dampening or ventricularization. Cineangiography performed in all projections. Next, catheter removed from the body of wire, sheath removed. Manual pressure used to achieve hemostasis. There were no immediate complications identified. I directly supervised the administration of fentanyl and Versed from 8:16 a.m. to 8:38 a.m. There were no immediate complications. The patient tolerated the procedure well. DATA: The patient remained in normal sinus rhythm throughout the procedure. Aortic pressure is 130/60, LV pressure is 130, LVEDP of 40 mmHg. Left ventriculography reveals severe global left ventricular hypokinesis, estimated ejection fraction of 25-30%. No evidence of aortic stenosis, elevated LVEDP. CORONARY ANATOMY: This is a right dominant system. Left main is a moderate sized vessel, no significant disease, bifurcates into left anterior descending and left circumflex. Left circumflex is moderate sized vessel, courses AV groove. There is no significant disease. LAD is a moderate-sized vessel, courses anterior intergroove, wraps around the apex, no significant disease. Right coronary is a moderate sized vessel, courses AV groove, distally bifurcates into the posterior descending and posterolateral branches, no discrete stenoses noted. CONCLUSIONS: 1. No angiographic evidence of significant epicardial coronary artery disease in this right dominant system. 2. Severe global left ventricular hypokinesis, estimated ejection fraction of 25-30%. 3. No evidence of aortic stenosis. 4. Elevated LVEDP. These findings are consistent with a uncompensated severe dilated nonischemic cardiomyopathy. The patient needs further diuresis and goal directed medical therapy. We will continue diuresis. A standard radial care. Results of procedure explained to the patient and family. All questions and concerns were addressed. TID: [id number] RECEIPT: [id number] MARISSA/TOM
--- NOTE | 2021-06-18 13:35 | Progress Note ---
Assessment and Plan Patient is a 55-year-old -[place] male, known to our practice (follows with Dr. Rodriguez), with past medical history of morbid obesity, HFpEF (EF 50 to 55%), hypertension, sleep apnea, and nonischemic dilated cardiomyopathy (last [facility] 10/2019) who presented to [facility] in acute HFrEF. Acute on chronic HFpEF Nonischemic dilated cardiomyopathy Acute respiratory failure Dyspnea Morbid obesity Venous insufficiency Sleep apnea Hypertension Hyperlipidemia [facility] 10/2019 @ [facility]: Patent coronaries Echocardiogram 06/14/21-Left ventricle: Left ventricle is moderately dilated. Left ventricle systolic function is severely decreased. There is normal left ventricular wall thickness. There is severe global hypokinesis of the left ventricle. Transmitral Doppler flow pattern suggest impaired LV relaxation. LVEF is 20 to 25%. Cardiac cath 06/18/2021-no angiographic evidence of significant epicardial coronary artery disease severe global left ventricle hypokinesis with estimated EF 25 to 30%. Elevated LVEDP Plan: Patient for cardiac cath this AM. See cath report for full details. Cardiac cath findings consistent with uncompensated severe dilated nonischemic cardiomyopathy. Will continue diuresis with Lasix 40 mg IV twice daily. Repeat BMP in the a.m. Close monitoring of renal function. Strict I&O's Patient creatinine is borderline. We will hold CHARLEE/ARB for now Recommend nightly CPAP usage Continue amiodarone 200 mg p.o. twice daily. 3 beat of NSVT overnight GDMT: Continue carvedilol 12.5 mg p.o. twice daily, spironolactone 50 mg p.o. daily., Lipitor 40 mg PO nightly Order for lifevest placed Education provided to patient regarding heart failure diet, fluid restrictions, weight loss and exercise. Patient is a conjunction with Dr. Marmolejo who agrees to this plan of care - Patient Problems (1) Acute respiratory failure with hypoxia Current Visit: Yes Status: Acute (2) Dyspnea Current Visit: Yes Status: Acute Qualifiers: Dyspnea type: dyspnea on exertion Qualified Code(s): R06.00 - Dyspnea, unspecified (3) Hyperlipidemia Current Visit: Yes Status: Chronic Qualifiers: Hyperlipidemia type: mixed hyperlipidemia Qualified Code(s): E78.2 - Mixed hyperlipidemia (4) Hypertension Current Visit: Yes Status: Chronic Qualifiers: Hypertension type: primary hypertension Qualified Code(s): I10 - Essential (primary) hypertension (5) Acute HFrEF (heart failure with reduced ejection fraction) Current Visit: No Status: Acute (6) NSVT (nonsustained ventricular tachycardia) Current Visit: No Status: Acute (7) Cardiomyopathy Current Visit: No Status: Chronic (8) Obesity Current Visit: No Status: Chronic Subjective Date of service: 06/18/21 Principal diagnosis: HFrEF Interval history: Patient for cardiac cath this a.m. Patient is sinus 90s-100s on monitor with no acute events over Objective Vital Signs Temp Pulse Resp BP Pulse Ox 06/18/21 10:24 96 06/18/21 10:06 88 105/65 06/18/21 10:05 88 105/65 06/18/21 08:50 98.8 F 83 16 100/61 95 06/18/21 03:35 98.3 F 82 20 111/64 90 06/17/21 23:50 98.4 F 91 H 18 92/60 93 06/17/21 22:09 18 06/17/21 20:22 96 06/17/21 20:16 96 06/17/21 20:06 92 H 06/17/21 19:27 98.5 F 87 20 110/69 96 06/17/21 16:59 98.0 F 92 H 20 116/69 95 - Physical Examination General: Appears Well, No Apparent Distress HEENT: Positive: Normocephaly, Mucus Membranes Moist Neck: Positive: trachea midline Cardiac: Positive: Reg Rate and Rhythm Lungs: Positive: Decreased Breath Sounds Neuro: Positive: Grossly Intact Abdomen: Positive: Unremarkable, Soft, Active Bowel Sounds Skin: Positive: Moist. Negative: Rash Extremities: Present: upper extr. pulses (1+), +1 Edema (Edema improving), Cool (Slightly cool bilateral lower extremity around ankles) - Labs and Meds Coagulation 06/18/21 Range/Units 04:00 PT 14.0 (12.2-14.9) Sec. INR 0.97 (0.87-1.13) APTT 29.1 (24.2-36.6) Sec. CBC 06/18/21 Range/Units 04:00 WBC 9.0 (4.5-11.0) K/mm3 RBC 5.31 H (3.65-5.03) M/mm3 Hgb 14.9 (11.8-15.2) gm/dl Hct 48.2 H (35.5-45.6) % Plt Count 235 (140-440) K/mm3 Lymph # (Auto) 1.0 L (1.2-5.4) K/mm3 [place] # (Auto) 1.1 H (0.0-0.8) K/mm3 Eos # (Auto) 0.2 (0.0-0.4) K/mm3 Baso # (Auto) 0.1 (0.0-0.1) K/mm3 Comprehensive Metabolic Panel 06/18/21 Range/Units 04:00 Sodium 138 (137-145) mmol/L Potassium 4.3 (3.6-5.0) mmol/L Chloride 98.4 (98-107) mmol/L Carbon Dioxide 28 (22-30) mmol/L BUN 20 (9-20) mg/dL Creatinine 1.2 (0.8-1.3) mg/dL Glucose 122 H (75-100) mg/dL Calcium 8.6 (8.4-10.2) mg/dL - Imaging and Cardiology EKG: image reviewed Echo: report reviewed (EF 20 to 25%) Cardiac cath: report reviewed - Telemetry EKG Rhythm: Sinus Rhythm - EKG Sinus rhythms and dysrhythmias: sinus tachycardia - Allied health notes Allied health notes reviewed: nursing
[2021-06-18] MEDS: FUROSEMIDE 20 MG/2 ML INJ IV SCH ×2 (17:41→17:43)
--- NOTE | 2021-06-18 20:34 | Electrocardiograph Report ---
[facility] Test Date: 2021-06-18 Test Time: 07:06:28 Pat Name: DIANE WISDOM Department: Room: A452 1 Gender: M Management Services Technician: CHATA : 1965 Requested By: GEORGETTE LATIF Order Number: [id number] Reading MD: Melo Lozada Measurements Intervals [place] Rate: 85 P: 58 VT: 168 QRS: -29 QRSD: 90 T: 21 QT: 386 QTc: 459 Interpretive Statements Sinus rhythm Possible old inferior infarct Compared to ECG 06/14/2021 12:34:38 Sinus rhythm has slowed Electronically Signed On 06-18-2021 20:34:06 EDT by Melo Lozada
[2021-06-18] MEDS: traZODone 50 MG TAB PO SCH (22:09)
[2021-06-19] MEDS: AMIODARONE 200 MG TAB PO SCH ×3 (01:32→21:19)
[2021-06-19] MEDS: FUROSEMIDE 20 MG/2 ML INJ IV SCH ×2 (06:10→17:37)
[2021-06-19] MEDS: ASPIRIN EC 81 MG TAB PO SCH (10:03)
[2021-06-19] MEDS: carvediloL 12.5 MG TAB PO SCH ×2 (10:03→21:19)
[2021-06-19] MEDS: FAMOTIDINE 20 MG TAB PO SCH ×2 (10:03→21:19)
[2021-06-19] MEDS: SPIRONOLACTONE 50 MG TAB PO SCH (10:03)
[2021-06-19] MEDS: ENOXAPARIN 40 MG/0.4 ML INJ SUB-Q SCH (10:03)
[2021-06-19 10:30] LABS: BUN/Creatinine Ratio 16; Blood Urea Nitrogen 23 mg/dL (9-20); Calcium 9.1 mg/dL (8.4-10.2); Hemolysis Index 6
--- NOTE | 2021-06-19 11:07 | Progress Note ---
Assessment and Plan Patient is a 55-year-old -[place] male, known to our practice (follows with Dr. Rodriguez), with past medical history of morbid obesity, HFpEF (EF 50 to 55%), hypertension, sleep apnea, and nonischemic dilated cardiomyopathy (last [facility] 10/2019) who presented to [facility] in acute HFrEF. Acute on chronic HFrEF Nonischemic dilated cardiomyopathy Acute respiratory failure Dyspnea Morbid obesity Venous insufficiency Sleep apnea Hypertension Hyperlipidemia [facility] 10/2019 @ [facility]: Patent coronaries Echocardiogram 06/14/21-Left ventricle: Left ventricle is moderately dilated. Left ventricle systolic function is severely decreased. There is normal left ventricular wall thickness. There is severe global hypokinesis of the left ventricle. Transmitral Doppler flow pattern suggest impaired LV relaxation. LVEF is 20 to 25%. Cardiac cath 06/18/2021-no angiographic evidence of significant epicardial coronary artery disease severe global left ventricle hypokinesis with estimated EF 25 to 30%. Elevated LVEDP Plan: Cardiac cath findings consistent with uncompensated severe dilated nonischemic cardiomyopathy. Urine output not documented. However patient reports to still have good urine output with very light yellow urine. Will continue diuresis with Lasix 40 mg IV twice daily. Repeat BMP in the a.m. Close monitoring of renal function. Strict I&O's Patient creatinine is borderline. Will hold CHARLEE/ARB for now Recommend nightly CPAP usage Continue amiodarone 200 mg p.o. twice daily. 3 beat of NSVT overnight GDMT: Continue carvedilol 12.5 mg p.o. twice daily, spironolactone 50 mg p.o. daily., Lipitor 40 mg PO nightly Order for lifevest placed Education provided to patient regarding heart failure diet, fluid restrictions, weight loss and exercise. Patient is a conjunction with Dr. Marmolejo who agrees to this plan of care - Patient Problems (1) Acute respiratory failure with hypoxia Current Visit: Yes Status: Acute (2) Dyspnea Current Visit: Yes Status: Acute Qualifiers: Dyspnea type: dyspnea on exertion Qualified Code(s): R06.00 - Dyspnea, unspecified (3) Hyperlipidemia Current Visit: Yes Status: Chronic Qualifiers: Hyperlipidemia type: mixed hyperlipidemia Qualified Code(s): E78.2 - Mixed hyperlipidemia (4) Hypertension Current Visit: Yes Status: Chronic Qualifiers: Hypertension type: primary hypertension Qualified Code(s): I10 - Essential (primary) hypertension (5) Acute HFrEF (heart failure with reduced ejection fraction) Current Visit: No Status: Acute (6) NSVT (nonsustained ventricular tachycardia) Current Visit: No Status: Acute (7) Cardiomyopathy Current Visit: No Status: Chronic (8) Obesity Current Visit: No Status: Chronic Subjective Date of service: 06/19/21 Principal diagnosis: HFrEF Interval history: Patient sitting in bed and in no acute distress. Patient reports good urine output Patient is sinus 80s on monitor with no acute events over Objective Vital Signs Temp Pulse Resp BP Pulse Ox 06/19/21 07:36 97.8 F 83 103/59 93 06/19/21 03:21 98.4 F 82 18 104/80 91 06/18/21 23:41 97.7 F 54 L 19 117/68 81 L 06/18/21 21:01 97 06/18/21 20:30 96 06/18/21 20:23 87 06/18/21 19:45 98.3 F 55 L 19 89/40 92 06/18/21 15:15 98.6 F 87 18 99/53 94 06/18/21 12:00 93 H 06/18/21 11:57 96/52 - Physical Examination General: Appears Well, No Apparent Distress HEENT: Positive: Normocephaly, Mucus Membranes Moist Neck: Positive: trachea midline Cardiac: Positive: Reg Rate and Rhythm Lungs: Positive: Decreased Breath Sounds Neuro: Positive: Grossly Intact Abdomen: Positive: Unremarkable, Soft, Active Bowel Sounds Skin: Positive: Moist. Negative: Rash Extremities: Present: upper extr. pulses, edema, Cool (Slightly cool bilateral lower extremity around ankles) - Labs and Meds Comprehensive Metabolic Panel 06/19/21 Range/Units 09:00 Sodium 140 (137-145) mmol/L Potassium 4.4 (3.6-5.0) mmol/L Chloride 97.4 L (98-107) mmol/L Carbon Dioxide 31 H (22-30) mmol/L BUN 23 H (9-20) mg/dL Creatinine 1.4 H (0.8-1.3) mg/dL Glucose 109 H (75-100) mg/dL Calcium 9.1 (8.4-10.2) mg/dL - Imaging and Cardiology EKG: image reviewed Echo: report reviewed (EF 20 to 25%) Cardiac cath: report reviewed - Telemetry EKG Rhythm: Sinus Rhythm - EKG Sinus rhythms and dysrhythmias: sinus rhythm - Allied health notes Allied health notes reviewed: nursing
--- NOTE | 2021-06-19 12:29 | Progress Note ---
Assessment and Plan Assessment and plan: #Acute on chronic systolic heart failure #nonischemic cardiomyopathy -TTE 06/16: LVEF 20-25%, severely dilated left ventricle -L heart cath 06/18 official report pending -Troponins negative. CTA chest unremarkable for PE. -Continue CHF exacerbation protocol: Telemetry, Strict I/O, monitor urine output every shift, daily weights, afterload reduction, low-sodium diet, and fluid restriction of approximately 1.5 mL/day. Continue IV Lasix 40 mg twice daily, spironolactone 50 mg daily, lisinopril 20 mg daily, Coreg 12.5 mg twice daily -Supplemental oxygen: 2L -ProBNP on admission: 669 -patient consented to livevest -Cardiology following, assistance appreciated #Nonsustained ventricular tachycardia -continue amiodarone 200mg BID #Acute hypoxic respiratory failure #Likely obesity hypoventilation syndrome -etiology: Likely secondary to obesity hypoventilation syndrome in addition to acute heart failure -supplemental oxygen at discharge -Continue protocol: continue pulse oximetry, wean oxygen as tolerated, ordered incentive spirometry and educated patient on how to use it and its importance. -Patient will benefit from nightly CPAP. Patient should have sleep study performed in outpatient setting. #Hypertension #Hyperlipidemia -continue current medications: Coreg 12.5 mg twice daily, lisinopril 10 mg daily -SBP goal <160 and DBP goal <90 while inpatient -continue to monitor #Chronic atrial fibrillation Currently in sinus rhythm. Continue home Eliquis 5 mg every 12 hours #Acute Kidney Injury-improving -likely secondary to diuresis and ACEi -lisinopril dose decreased to 10mg qday -will continue to monitor -will avoid nephrotoxic agents, renally dose medications #Morbid obesity #Weight loss counseling #Exercise counseling -BMI 56.5 -Counseled patient on the importance of weight loss, incorporating exercise, and dietary changes (lean meats, fresh fruits and vegetables, and water intake). Patient expresses understanding. -patient will need outpatient follow up for weight loss surgery #Advanced care planning -Disease education conducted, care plan discussed, diagnoses discussed, prognosis discussed, and patient acknowledges understanding with care plan -Time: +30 min #Discharge planning - Patient is pending further Cardiology recommendations - Case management has been made aware. - Discharge is tentatively based on improvement of respiratory symptoms and heart failure History Interval history: No acute events overnight. Patient eager to leave. Denies chest pain or short ness of breath acutely. No complaints at this time. Hospitalist Physical - Physical exam Narrative exam: GENERAL: Obese male. In no acute distress. HEENT: Supplemental O2 at 2 L/min CHEST/LUNGS: Coarse breath sounds bilaterally. HEART/CARDIOVASCULAR: RRR. No murmur, rubs or gallops appreciated. ABDOMEN: +BS. NT/ND. SKIN: No rashes noted. NEURO: No focal motor deficit. Follows all commands and is ambulatory. EXTREMITIES: Venous stasis changes in bilateral lower extremity. 1+ edema improving. PSYCH: Cooperative. - Constitutional Vitals: Temp Pulse Resp BP Pulse Ox 97.8 F 83 18 103/59 98 06/19/21 07:36 06/19/21 07:36 06/19/21 03:21 06/19/21 07:36 06/19/21 10:00 General appearance: Present: no acute distress HEART Score - HEART Score Age: 45-65 Risk factors: > 3 risk factors or hx of atherosclerotic disease Troponin: Troponin T < 0.010 ng/mL (0.00-0.029) 06/14/21 12:08 Troponin: 1-3x normal limit - Critical Actions Critical Actions: 4-6 pts:12-16.6% risk of adverse cardiac event. Should be admitted Results - Labs CBC & Chem 7: 06/18/21 04:00 06/19/21 09:00 Labs: Laboratory Last Values WBC 9.0 K/mm3 (4.5-11.0) 06/18/21 04:00 RBC 5.31 M/mm3 (3.65-5.03) H 06/18/21 04:00 Hgb 14.9 gm/dl (11.8-15.2) 06/18/21 04:00 Hct 48.2 % (35.5-45.6) H 06/18/21 04:00 MCV 91 fl (84-94) 06/18/21 04:00 MCH 28 pg (28-32) 06/18/21 04:00 MCHC 31 % (32-34) L 06/18/21 04:00 RDW 16.2 % (13.2-15.2) H 06/18/21 04:00 Plt Count 235 K/mm3 (140-440) 06/18/21 04:00 Lymph % (Auto) 11.5 % (13.4-35.0) L 06/18/21 04:00 Esmeralda % (Auto) 12.0 % (0.0-7.3) H 06/18/21 04:00 Eos % (Auto) 2.2 % (0.0-4.3) 06/18/21 04:00 Baso % (Auto) 1.1 % (0.0-1.8) 06/18/21 04:00 Lymph # (Auto) 1.0 K/mm3 (1.2-5.4) L 06/18/21 04:00 Esmeralda # (Auto) 1.1 K/mm3 (0.0-0.8) H 06/18/21 04:00 Eos # (Auto) 0.2 K/mm3 (0.0-0.4) 06/18/21 04:00 Baso # (Auto) 0.1 K/mm3 (0.0-0.1) 06/18/21 04:00 Seg Neutrophils % 73.2 % (40.0-70.0) H 06/18/21 04:00 Seg Neutrophils # 6.6 K/mm3 (1.8-7.7) 06/18/21 04:00 PT 14.0 Sec. (12.2-14.9) 06/18/21 04:00 INR 0.97 (0.87-1.13) 06/18/21 04:00 APTT 29.1 Sec. (24.2-36.6) 06/18/21 04:00 Sodium 140 mmol/L (137-145) 06/19/21 09:00 Potassium 4.4 mmol/L (3.6-5.0) 06/19/21 09:00 Chloride 97.4 mmol/L (98-107) L 06/19/21 09:00 Carbon Dioxide 31 mmol/L (22-30) H 06/19/21 09:00 Anion Gap 16 mmol/L 06/19/21 09:00 BUN 23 mg/dL (9-20) H 06/19/21 09:00 Creatinine 1.4 mg/dL (0.8-1.3) H 06/19/21 09:00 Estimated GFR > 60 ml/min 06/19/21 09:00 BUN/Creatinine Ratio 16 % 06/19/21 09:00 Glucose 109 mg/dL (75-100) H 06/19/21 09:00 Lactic Acid 1.00 mmol/L (0.7-2.0) 06/14/21 15:06 Calcium 9.1 mg/dL (8.4-10.2) 06/19/21 09:00 Phosphorus 4.30 mg/dL (2.5-4.5) 06/17/21 05:14 Magnesium 2.40 mg/dL (1.7-2.3) H 06/17/21 05:14 Total Bilirubin 0.40 mg/dL (0.1-1.2) 06/14/21 12:08 AST 17 units/L (5-40) 06/14/21 12:08 ALT 29 units/L (7-56) 06/14/21 12:08 Alkaline Phosphatase 79 units/L (35-129) 06/14/21 12:08 Troponin T < 0.010 ng/mL (0.00-0.029) 06/14/21 12:08 NT-Pro-B Natriuret Pep 669.3 pg/mL (0-900) 06/14/21 12:08 Total Protein 7.1 g/dL (6.3-8.2) 06/14/21 12:08 Albumin 3.8 g/dL (3.9-5) L 06/14/21 12:08 Albumin/Globulin Ratio 1.2 % 06/14/21 12:08 Procalcitonin 0.07 ng/mL (<0.15) 06/15/21 08:37 Coronavirus (PCR) Negative (Negative) 06/15/21 Unknown Blood Type A POSITIVE 06/18/21 04:00 Antibody Screen Negative 06/18/21 04:00 Microbiology: Microbiology 06/14/21 12:08 Peripheral/Venous Blood Culture - Preliminary NO GROWTH AFTER 4 DAYS 06/14/21 12:08 Peripheral/Venous Blood Culture - Preliminary NO GROWTH AFTER 4 DAYS Garcia/IV: Voiding Method Urinal Active Medications - Current Medications Current Medications: Generic Name Dose Route Start Last Admin Trade Name Freq PRN Reason Stop Dose Admin Acetaminophen 650 mg 06/14/21 17:37 Acetaminophen 325 Mg Tab PO Q4H PRN Pain MILD(1-3)/Fever >100.5/NEGRON Hydrocodone Bitart/Acetaminophen 1 each 06/18/21 09:30 06/18/21 15:28 Hydrocodone/Acetaminophen 5-325 Mg Tab PO 1 each Q4H PRN Administration Pain, Moderate (4-6) Albuterol 2.5 mg 06/14/21 18:29 Albuterol 2.5 Mg/3 Ml Nebu IH Q3HRT PRN Shortness Of Breath Amiodarone HCl 200 mg 06/16/21 16:30 06/19/21 10:03 Amiodarone 200 Mg Tab PO 200 mg BID CESAR Administration Aspirin 81 mg 06/14/21 18:00 06/19/21 10:03 Aspirin Ec 81 Mg Tab PO 81 mg QDAY CESAR Administration Atorvastatin Calcium 40 mg 06/14/21 22:00 06/18/21 22:09 Atorvastatin 40 Mg Tab PO 40 mg QHS CESAR Administration Carvedilol 12.5 mg 06/14/21 22:00 06/19/21 10:03 Carvedilol 12.5 Mg Tab PO 12.5 mg BID CESAR Administration Enoxaparin Sodium 40 mg 06/14/21 16:00 06/19/21 10:03 Enoxaparin 40 Mg/0.4 Ml Inj SUB-Q 40 mg QDAY CESAR Administration Famotidine 20 mg 06/14/21 22:00 06/19/21 10:03 Famotidine 20 Mg Tab PO 20 mg BID CESAR Administration Furosemide 40 mg 06/18/21 11:31 06/19/21 06:10 Furosemide 20 Mg/2 Ml Inj IV 40 mg 0600,1800 CESAR Administration Guaifenesin 200 mg 06/14/21 21:05 06/15/21 12:11 Guaifenesin 200 Mg Tab PO 200 mg Q6H PRN Administration Cough Metoclopramide HCl 10 mg 06/14/21 17:37 Metoclopramide 10 Mg/2 Ml Inj IV Q6H PRN Nausea And Vomiting Morphine Sulfate 2 mg 06/14/21 15:33 06/17/21 22:09 Morphine 2 Mg/1 Ml Inj IV 2 mg Q4H PRN Administration Pain, Moderate (4-6) Ondansetron HCl 4 mg 06/14/21 17:37 Ondansetron 4 Mg/2 Ml Inj IV Q3H PRN Nausea And Vomiting Sodium Chloride 10 ml 06/14/21 22:00 06/19/21 10:03 Sodium Chloride 0.9% 10 Ml Flush Syringe IV 10 ml BID CESAR Administration Sodium Chloride 10 ml 06/14/21 17:37 Sodium Chloride 0.9% 10 Ml Flush Syringe IV PRN PRN LINE FLUSH Spironolactone 50 mg 06/14/21 18:00 06/19/21 10:03 Spironolactone 50 Mg Tab PO 50 mg QDAY CESAR Administration Tramadol HCl 50 mg 06/18/21 10:00 Tramadol 50 Mg Tab PO Q4H PRN Pain, Mild (1-3) Trazodone HCl 50 mg 06/14/21 22:00 06/18/21 22:09 Trazodone 50 Mg Tab PO 50 mg QHS CESAR Administration Nutrition/Malnutrition Assess - Dietary Evaluation Nutrition/Malnutrition Findings: Nutrition Notes Start: 06/15/21 11:34 Freq: Status: Active Protocol: Document 06/15/21 11:34 KARINA (Rec: 06/15/21 11:51 KARINA [email or web address]) Nutrition Notes Need for Assessment generated from: MD Order,Education Initial or Follow up Assessment Current Diagnosis Hypertension,Respiratory Failure,Hyperlipidemia Other Pertinent Diagnosis CHF, HFrEF, Atrial Fibrilation , Bilateral LE Swelling. Current Diet Cardiac/Consistent Carbohydrates Diet (since B ). Labs/Tests 06/15: Glu 131. Pertinent Medications 06/15: Nutritionally unremarkable. Height 5 ft 6 in Weight 158.8 kg Purvis Body Weight (kg) 64.54 BMI 56.5 Intake Prior to Admission Good Weight change and time frame Pt denies having loss body weight [employer]. Weight Status Morbidly Obese Subjective/Other Information RD consult for nutrition education. No reports on Pt's PO intake of meals at the time, will assess at F/U. Pt on Room Air, O2 saturation @ 90%, according to Physical Assessment History notes. Pt still in critical condition , not a candidate for Nutrition Education at the time, will assess feasibility on F/U. Percent of energy/protein needs met: Prescribed Cardiac/Consistent Carbohydrates Diet provides for energy/protein needs (1, 977 Kcal/86 g) during LOS. Burn Absent Trauma Absent GI Symptoms None Food Allergy No Skin Integrity/Comment Assessment WNL. Minimum of two criteria No #1 Nutrition Diagnosis No nutrition diagnosis at this time Comments: Will assess Pt's PO intake of meals at F/U. Will assess feasibility for nutrition education at F/U. Is patient on ventilator? No Is Patient Ambulatory and/or Out of Bed Yes REE-([place]-St. Jeor-ambulatory/OOB) [ 3068.975 [id number]] Kcal/Kg value to use for calculation 10 Approximate Energy Requirements Using 1588 kcal/Kg Calculation Used for Recommendations Kcal/kg Additional Notes Protein: 0.8-1 g/Kg AdjBW; 90- 112 g/day. Fluids: 1 ml/Kcal, or as per MD. Nutrition Intervention Change Diet Order: Continue Cardiac/Consistent Carbohydrates Diet. Follow-Up By: 06/22/21 Additional Comments Nutrition education will be provided on F/U, if feasible. Continue monitoring food tolerance, %PO intake of meals , and BM.
[2021-06-19] MEDS: traZODone 50 MG TAB PO SCH (21:19)
[2021-06-20] MEDS: FUROSEMIDE 20 MG/2 ML INJ IV SCH (05:36)
[2021-06-20 06:44] LABS: BUN/Creatinine Ratio 19; Blood Urea Nitrogen 25 mg/dL (9-20); Calcium 8.5 mg/dL (8.4-10.2); Hemolysis Index 26
[2021-06-20 07:53] VITALS: BP 111/64
[2021-06-20] MEDS ORDERED: AMIODARONE 200 MG TAB PO SCH (10:00)
--- NOTE | 2021-06-20 10:17 | Progress Note ---
Assessment and Plan Patient is a 55-year-old -[place] male, known to our practice (follows with Dr. Rodriguez), with past medical history of morbid obesity, HFpEF (EF 50 to 55%), hypertension, sleep apnea, and nonischemic dilated cardiomyopathy (last [facility] 10/2019) who presented to [facility] in acute HFrEF. Acute on chronic HFrEF acute respiratory failure Nonischemic dilated cardiomyopathy Acute respiratory failure Dyspnea Morbid obesity Venous insufficiency Sleep apnea Hypertension Hyperlipidemia [facility] 10/2019 @ [facility]: Patent coronaries Echocardiogram 06/14/21-Left ventricle: Left ventricle is moderately dilated. Left ventricle systolic function is severely decreased. There is normal left ventricular wall thickness. There is severe global hypokinesis of the left ventricle. Transmitral Doppler flow pattern suggest impaired LV relaxation. LVEF is 20 to 25%. Cardiac cath 06/18/2021-no angiographic evidence of significant epicardial coronary artery disease severe global left ventricle hypokinesis with estimated EF 25 to 30%. Elevated LVEDP rec: Patient is currently compensated LV dysfunction not on CHARLEE or ARB secondary to low blood pressure. Will change to Lasix 40 mg twice a day. Patient will have LifeVest. We will on home oxygen. Discussed about fluid retention fluid restriction and salt restriction. Patient will follow up in cardiology office in 1 week's time Subjective Date of service: 06/20/21 Principal diagnosis: HFrEF Interval history: sob is better no cp Objective Vital Signs Temp Pulse Resp BP Pulse Ox 06/20/21 07:52 98.3 F 88 18 111/64 97 06/20/21 04:12 97.5 F L 81 19 113/66 92 06/19/21 23:43 98.2 F 85 18 91/57 93 06/19/21 22:02 93 06/19/21 22:00 98 06/19/21 20:00 98 H 06/19/21 19:51 98.6 F 92 H 20 121/68 95 06/19/21 15:15 98.9 F 87 100/52 95 06/19/21 12:00 92 H - Physical Examination General: Appears Well, No Apparent Distress HEENT: Positive: Normocephaly, Mucus Membranes Moist Neck: Positive: trachea midline Cardiac: Positive: Reg Rate and Rhythm Lungs: Positive: clear to auscultation Neuro: Positive: Grossly Intact Abdomen: Positive: Unremarkable, Soft, Active Bowel Sounds Skin: Positive: Moist. Negative: Rash Extremities: Present: upper extr. pulses, edema (trace), Cool (Slightly cool bilateral lower extremity around ankles) - Labs and Meds Comprehensive Metabolic Panel 06/19/21 06/20/21 Range/Units 09:00 04:43 Sodium 140 139 (137-145) mmol/L Potassium 4.4 4.7 (3.6-5.0) mmol/L Chloride 97.4 L 99.5 (98-107) mmol/L Carbon Dioxide 31 H 30 (22-30) mmol/L BUN 23 H 25 H (9-20) mg/dL Creatinine 1.4 H 1.3 (0.8-1.3) mg/dL Glucose 109 H 117 H (75-100) mg/dL Calcium 9.1 8.5 (8.4-10.2) mg/dL - Imaging and Cardiology EKG: image reviewed Echo: report reviewed (EF 20 to 25%) Cardiac cath: report reviewed - Telemetry EKG Rhythm: Sinus Rhythm - EKG Sinus rhythms and dysrhythmias: sinus rhythm - Allied health notes Allied health notes reviewed: nursing
[2021-06-20] MEDS: FAMOTIDINE 20 MG TAB PO SCH (10:24)
[2021-06-20] MEDS: carvediloL 12.5 MG TAB PO SCH (10:24)
[2021-06-20] MEDS: ENOXAPARIN 40 MG/0.4 ML INJ SUB-Q SCH (10:24)
[2021-06-20] MEDS: ASPIRIN EC 81 MG TAB PO SCH (10:24)
[2021-06-20] MEDS: SPIRONOLACTONE 50 MG TAB PO SCH (10:24)
--- NOTE | 2021-06-20 10:35 | Discharge Summary ---
Providers - Providers Date of Admission: 06/14/21 15:33 Date of discharge: 06/20/21 Attending physician: NOE TYLER MD 06/14/21 17:36 Consult to Physician [CONS] Routine Comment: Consulting Provider: BAL BRADSHAW Physician Instructions: Reason For Exam: CHF exacerbation 06/15/21 10:25 Consult to Dietitian/Nutrition [CONS] Routine Physician Instructions: Reason For Exam: Reason for Consult: Diet education 06/15/21 12:09 Physical Therapy Evaluation and Treat [CONS] Stat Comment: Reason For Exam: PT to eval and treat 06/15/21 12:10 Occupational Therapy Evaluate and Treat [CONS] Stat Comment: Reason For Exam: OT to eval and treat 06/18/21 08:43 Consult to Cardiac Rehabilitation [CONS] Routine Reason For Exam: Cardiac Rehab Evaluation Hospitalization Condition: Stable Disposition: 30 STILL A PATIENT Core Measure Documentation - Palliative Care Palliative Care/ Comfort Measures: Not Applicable - Core Measures Any of the following diagnoses?: heart failure - Heart Failure Discharge Requirements CHARLEE/ARB for LVSD if EF <40%: No Reason for no CHARLEE/ARB: Hypotension Beta trung at discharge: Yes Exam - Physical Exam Narrative exam: GENERAL: Obese male. In no acute distress. HEENT: Supplemental O2 at 2 L/min CHEST/LUNGS: Coarse breath sounds bilaterally. HEART/CARDIOVASCULAR: RRR. No murmur, rubs or gallops appreciated. ABDOMEN: +BS. NT/ND. SKIN: No rashes noted. NEURO: No focal motor deficit. Follows all commands and is ambulatory. EXTREMITIES: Venous stasis changes in bilateral lower extremity. 1+ edema improving. PSYCH: Cooperative. - Constitutional Vitals: Temp Pulse Resp BP Pulse Ox 98.3 F 88 18 111/64 97 06/20/21 07:52 06/20/21 07:52 06/20/21 07:52 06/20/21 07:52 06/20/21 07:52 Plan Care Plan Goals: Please wear lifevest at all times. Please make sure to follow up with Cardiology within 1-2 weeks. Phone number will be provided. Please make sure to take all medications as prescribed. Continue to wear oxygen as long as your O2 stays below 90%. Discuss with your primary care doctor options for weight loss. You can schedule an appointment with Dr. Bai for weight loss surgery once your heart problems improve. Follow up with: MD RALPH [Other] - 3-5 Days FREDDY CONTRERAS MD [Staff Physician] - 7 Days ZOHAIB BAI MD [Staff Physician] - 6 Weeks (weigh loss surgery) Forms: Work/School Release Form Prescriptions: AtorvaSTATin [Lipitor] 40 mg PO QHS 90 Days #90 tablet Spironolactone [Aldactone] 50 mg PO QDAY 90 Days #90 tablet Amiodarone [Cordarone 200 MG TAB] 200 mg PO DAILY 90 Days #90 tablet carvediloL [Coreg] 12.5 mg PO BID 90 Days #180 tab Aspirin EC [Halfprin EC] 81 mg PO QDAY 90 Days #90 tablet Furosemide [Lasix TAB] 40 mg PO 0600,1800 90 Days #180 tablet
[2021-06-20] MEDS ORDERED: FUROSEMIDE 40 MG TAB PO SCH (18:00)
== END 2021-06-20 13:30 | disposition home or self-care (01) | DRG 286 ==
LOC: ED 11:17 → 4A 15:33
PROVIDERS: ADMIT Internal Medicine; ATTEND Student in an Organized Health Care Education/Training Program
PROC: 4A023N7 Measurement of Cardiac Sampling and Pressure, Left Heart, Percutaneous Approach (ICD-10-PCS; principal; 2021-06-18)
PROC: B2111ZZ Fluoroscopy of Multiple Coronary Arteries using Low Osmolar Contrast (ICD-10-PCS; 2021-06-18)
PROC: B2151ZZ Fluoroscopy of Left Heart using Low Osmolar Contrast (ICD-10-PCS; 2021-06-18)
DX: I11.0 Hypertensive heart disease with heart failure (principal); I50.23 Acute on chronic systolic (congestive) heart failure; J96.01 Acute respiratory failure with hypoxia; I48.20 Chronic atrial fibrillation, unspecified; Z68.43 Body mass index [BMI] 50.0-59.9, adult; E66.2 Morbid (severe) obesity with alveolar hypoventilation; N17.9 Acute kidney failure, unspecified; I47.2 Ventricular tachycardia; Z20.822 Contact with and (suspected) exposure to COVID-19; I42.8 Other cardiomyopathies; E78.2 Mixed hyperlipidemia; I48.0 Paroxysmal atrial fibrillation; Z82.49 Family history of ischemic heart disease and other diseases of the circulatory system
CPT/HCPCS: 36415; 71045; 71275; 80048; 80053; 82140; 83735; 83880; 84100; 84145; 84484; 85025; 85027; 85610; 85730; 86850; 86900; 86901; 87040; 93005; 93306; 93458; 94760; G0378; J1815; J3490; C1894; C8929; J1644; J1650; J1940; J2060; J2270; J7040; Q9967; U0003